=== PATIENT | male | born 1945 | race Two or more races ===

== ENCOUNTER 2017-04-24 21:04 | Inpatient (IN) | payer MEDICARE, SELFPAY ==
[~2017-04-24] VITALS: Ht 160 cm; Wt 61.0 kg
[2017-04-24] MEDS ORDERED: NALOXONE INJ 2 MG/2 ML SYRINGE (J2310) IV ONE (21:15)
[2017-04-24] MEDS ORDERED: AMBI10TA PO (21:24)
[2017-04-24] MEDS ORDERED: LYRI150C PO (21:24)
[2017-04-24] MEDS ORDERED: BENA25TA10 PO (21:24)
[2017-04-24] MEDS ORDERED: ISOS1TAB12 PO (21:24)
[2017-04-24] MEDS ORDERED: BETA115CR TOP (21:24)
[2017-04-24] MEDS ORDERED: NIFE1TAB PO (21:24)
[2017-04-24] MEDS ORDERED: ALFU10TA2 PO (21:24)
[2017-04-24] MEDS ORDERED: BACL10TA2 PO (21:24)
[2017-04-24] MEDS ORDERED: PROM50TA4 PO (21:24)
[2017-04-24] MEDS ORDERED: HYDR-3363 PO (21:24)
[2017-04-24] MEDS ORDERED: VITA400C97 PO (21:24)
[2017-04-24] MEDS ORDERED: PLAV1TAB2 PO (21:24)
[2017-04-24] MEDS ORDERED: LOSA100T36 PO (21:24)
[2017-04-24] MEDS ORDERED: PERC10TA26 PO (21:24)
[2017-04-24] MEDS ORDERED: TYLE1TAB5 PO (21:24)
[2017-04-24] MEDS ORDERED: FENO145T PO (21:24)
[2017-04-24 21:34] LABS: ABG BASE EXCESS -8.3 (-2.0-2.0); ABG HCO3 16.8 MEQ/L (22.0-26.0); ABG PARTIAL PRESSURE CO2 33.6 mmHg (35.0-45.0); ABG STANDARD HCO3 17.8 MEQ/L (22.0-26.0); ABG TOTAL CO2 17.9 MEQ/L (23.0-31.0); ABG pH (ARTERIAL) 7.318 UNITS (7.350-7.450)
[2017-04-24 21:36] LABS: BASO % 0.3 % (0.0-1.0); EOS % 0.4 % (0.0-3.0); LARGE UNSTAINED CELL # 0.2 K/mm3 (0.0-0.4); LARGE UNSTAINED CELL % 1.4 % (0.0-4.0); LYMPH # 1.7 K/mm3 (1.5-4.5); LYMPH % 13.5 % (24.0-44.0); MEAN CORPUSCULAR HGB CONC 30.5 g/dl (32.0-36.5); MEAN CORPUSCULAR VOLUME 94.9 fl (80.0-96.0); MONO # 0.4 K/mm3 (0.0-0.8); MONO % 3.1 % (0.0-5.0); NEUTROPHILS # 9.5 K/mm3 (1.8-7.7); NEUTROPHILS % 81.3 % (36.0-66.0); PLATELET COUNT, AUTOMATED 220 k/mm3 (150-450); RED CELL DISTRIBUTION WIDTH 14.9 % (11.5-14.5); WHITE BLOOD COUNT 11.7 K/mm3 (4.0-10.0)
[2017-04-24] MEDS: NS 1,000 ML IV SCH (21:45)
[2017-04-24 21:50] LABS: ALBUMIN 3.4 GM/DL (3.2-5.2); ALBUMIN/GLOBULIN RATIO 0.92 (1.00-1.93); ALKALINE PHOSPHATASE 58 U/L (45-117); ALT/SGPT 15 U/L (12-78); ANION GAP 12 MEQ/L (8-16); AST/SGOT 28 U/L (15-37); BILIRUBIN,DIRECT 0.1 MG/DL (0.0-0.2); BILIRUBIN,TOTAL 0.3 MG/DL (0.2-1.0); BLOOD UREA NITROGEN 42 MG/DL (7-18); CALCIUM LEVEL 8.4 MG/DL (8.8-10.2); CARBON DIOXIDE LEVEL 18 MEQ/L (21-32); CHLORIDE LEVEL 111 MEQ/L (98-107); CREATININE FOR GFR 3.99 MG/DL (0.70-1.30); GLOMERULAR FILTRATION RATE 15.7 (>42); GLUCOSE, FASTING 113 MG/DL (83-110); POTASSIUM SERUM 3.8 MEQ/L (3.5-5.1); SODIUM LEVEL 141 MEQ/L (136-145); TOTAL PROTEIN 7.1 GM/DL (6.4-8.2)
--- NOTE | 2017-04-24 22:47 | REP ---
Clinical: Drug overdose . Findings: Age-related atrophy and microvascular ischemic changes are appreciated. The ventricles and sulci are symmetric. 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 Mckeon-white differentiation is maintained. There is no evidence for acute intracranial hemorrhage, mass/mass effect, pathology or infarction. No extra-axial fluid collection. Calvarium is intact. Paranasal sinuses and mastoid air cells are clear. Impression: Age related atrophy and microvascular ischemic changes. No acute intracranial hemorrhage, infarction, or mass/mass effect. Signed by Steve Olsen MD 04/24/2017 10:38 P
[2017-04-24 22:58] LABS: METHADONE URINE NEGATIVE (NEGATIVE)
[2017-04-24 23:24] LABS: ABG BASE EXCESS -11.5 (-2.0-2.0); ABG HCO3 14.1 MEQ/L (22.0-26.0); ABG PARTIAL PRESSURE CO2 31.3 mmHg (35.0-45.0); ABG STANDARD HCO3 15.3 MEQ/L (22.0-26.0); ABG TOTAL CO2 15.1 MEQ/L (23.0-31.0); ABG pH (ARTERIAL) 7.273 UNITS (7.350-7.450)
[2017-04-24] MEDS ORDERED: ACETAMINOPHEN TAB 650MG DOSE (2X325MG) PO PRN (23:45)
[2017-04-24] MEDS ORDERED: ONDANSETRON 4MG/2ML VIAL (J2405) IV PRN (23:45)
[2017-04-24] MEDS ORDERED: PATIENT COMMENT (23:49)
--- NOTE | 2017-04-24 23:52 | ECGEPIP ---
Stationary ECG Study [facility] - ED Test Date: 2017-04-24 Pat Name: PASCUAL GOINS Department: Room: - Gender: M Certified Medical Transcriptionist: DominiqueB: 1965-04-24 Requested By: Raymundo Delgado Order Number: [id number] Reading MD: Raymundo Vyas Measurements Intervals [place] Rate: 101 P: 44 RI: 172 QRS: -50 QRSD: 134 T: 46 QT: 367 QTc: 476 Interpretive Statements SINUS TACHYCARDIA WITH FREQUENT VENTRICULAR PREMATURE COMPLEXES LEFT AXIS DEVIATION RIGHT BUNDLE BRANCH BLOCK MODERATE T-WAVE ABNORMALITY, CONSIDER LATERAL ISCHEMIA NO PRIORS Electronically Signed On 04-24-2017 23:51:42 EDT by Raymundo Vyas
[2017-04-25] VITALS (7 sets, daily range): BP systolic 112–166; BP diastolic 60–81
[2017-04-25] MEDS ORDERED: AMMONIA AROMATIC INHALANT (FLOOR STOCK) As Ordered ONE (01:04)
--- NOTE | 2017-04-25 02:07 | HPEPDOC ---
General Date of Admission Apr 24, 2017 at 23:41 Chief Complaint The patient is a 72-year-old male admitted with a reason for visit of Opioid Overdose. Source: Patient Exam Limitations: Intoxication Timing/Duration: 4-6 hours Severity: Severe Associated Symptoms: Unobtainable History of Present Illness Mr Vallejo is a 72 y/o male with past medical history of CAD who presents to the ED obtunded, apparently from his brother who was at bedside, the pt is visiting from [place]. After they had completed their drive, the pt. was at home in his normal state of health and then was found to be unresponsive sometime last evening by his family. Unfortunately on exam the pt is extremely difficult to arouse, he falls asleep and will not even open his eyes to questioning, but will move around when sternal rub is applied. ROS is therefore unobtainable. He was given Narcan both in the field pre-hospital and then again in our ED and seemed to become responsive after this. The pt is on quite a few MARKETING ANALYTICS ANALYST depressant medications, including opioid drugs. Home Medications Scheduled Clopidogrel Bisulfate (Plavix) 75 Mg Tab, 75 MG PO DAILY, (Reported) Losartan Potassium (Losartan Potassium) 100 Mg Tab, 100 MG PO DAILY, (Reported) Nifedipine (Nifedipine ER) 90 Mg Tab, 90 MG PO DAILY, (Reported) Pregabalin (Lyrica) 150 Mg Cap, 150 MG PO TID, (Reported) Miscellaneous Medications (Tylenol Pm Extra Strength 500-25 mg) 1 Tab Tab, 1 TAB PO, (Reported) Alfuzosin Hydrochloride (Alfuzosin HCl ER) 10 Mg Tab, 10 MG PO, (Reported) Baclofen (Baclofen) 10 Mg Tab, 10 MG PO, (Reported) Betamethasone Gladys (Betamethasone Valerate) 1 Dose/15 Gm Cream, 0 TOP, (Reported) Diphenhydramine Hcl (Benadryl Allergy) 25 Mg Tab, 25 MG PO, (Reported) Fenofibrate (Fenofibrate) 145 Mg Tab, 145 MG PO, (Reported) Hydroxyzine HCl (Hydroxyzine HCl) 25 Mg Tab, 25 MG PO, (Reported) Isosorbide Mononitrate (Isosorbide Mononitrate) 10 Mg Tab, 10 MG PO, (Reported) Oxycodone/Acetaminophen (Percocet 10-325 mg) 1 Tab Tab, 1 TAB PO, (Reported) Promethazine Hcl (Promethazine HCl) 50 Mg Tab, 50 MG PO, (Reported) Vitamin E (Vitamin E Complex) 400 Unit Cap, 400 UNIT PO, (Reported) Zolpidem Tartrate (Ambien) 10 Mg Tab, 10 MG PO, (Reported) [Patient Comment] , (Reported) PATIENT UNABLE TO ANSWER QUESTIONS; CALLED NEXT OF KIN AND GOT NO ANSWER. WILL TRY IN THE MORNING BEFORE NEXT SHIFT. Allergies Coded Allergies: Unobtainable (Unverified , 04/24/17) Past Medical History Medical History unobtainable Surgical History unobtainable Social History unobtainable Physical Examination General Exam: Positive: No Acute Distress, Other (laying in bed sleeping, will awaken briefly to sternal rub and falls back asleep, will not stay awake to answer questions ), Negative: Alert, Cooperative Eye Exam: Positive: Conjunctiva & lids normal, Negative: Sclera icteric ENT Exam: Positive: Mucous membr. moist/pink Chest Exam: Positive: Clear to auscultation, Normal air movement, Diminished, Negative: Rhonchi, Wheezing Heart Exam: Positive: Rate Normal, Normal S1, Normal S2, Negative: Tachycardic, Bradycardic Telemetry: Positive: No significant arrhythmia Abdomen Exam: Positive: Normal bowel sounds, Soft, Negative: Tenderness, Hepatospenomegaly Extremity Exam: Negative: Clubbing, Cyanosis Neuro Exam: Positive: Other (+gag reflex, moves all extremities to painful stimuli) Vital Signs Vital Signs Date Time Temp Pulse Resp B/P (MAP) Pulse Ox O2 Delivery O2 Flow Rate FiO2 04/25/17 01:34 Room Air 04/25/17 01:00 97.7 87 20 112/63 (79) 97 Laboratory Data Labs 24H Laboratory Tests 2 04/24/17 21:22: White Blood Count 11.7H, Red Blood Count 4.27L, Hemoglobin 12.4L, Hematocrit 40.5L, Mean Corpuscular Volume 94.9, Mean Corpuscular Hemoglobin 29.0, Mean Corpuscular Hemoglobin Concent 30.5L, Red Cell Distribution Width 14.9H, Platelet Count 220, Neutrophils (%) (Auto) 81.3H, Lymphocytes (%) (Auto) 13.5L, Monocytes (%) (Auto) 3.1, Eosinophils (%) (Auto) 0.4, Basophils (%) (Auto) 0.3, Neutrophils # (Auto) 9.5H, Lymphocytes # (Auto) 1.7, Monocytes # (Auto) 0.4, Eosinophils # (Auto) 0.0, Basophils # (Auto) 0.0, Large Unclassified Cells % 1.4 , Large Unclassified Cells # 0.2, Anion Gap 12, Glomerular Filtration Rate 15.7L , Calcium Level 8.4L, Aspartate Amino Transf (AST/SGOT) 28, Alanine Aminotransferase (ALT/SGPT) 15, Alkaline Phosphatase 58, Total Bilirubin 0.3, Direct Bilirubin 0.1, Total Creatine Kinase 661H, Troponin I < 0.02, Total Protein 7.1, Albumin 3.4, Albumin/Globulin Ratio 0.92L, Thyroid Stimulating Hormone (TSH) 0.770, Salicylates Level 2.4L, Acetaminophen Level 6.9L, Ethyl Alcohol Level < 0.003 04/24/17 21:29: Blood Gas Bicarbonate Standard 17.8L, Arterial Blood pH 7.318L, Arterial Blood Partial Pressure CO2 33.6L, Arterial Blood Partial Pressure O2 76.0, Arterial Blood Total CO2 17.9L, Arterial Blood HCO3 16.8L, Arterial Blood Base Excess - 8.3L, Arterial Blood Oxygen Saturation 95.8 04/24/17 22:23: Lactic Acid Level 1.0 04/24/17 22:29: Urine Amphetamines Screen NEGATIVE, Urine Benzodiazepines Screen NEGATIVE, Urine Opiates Screen POSITIVEH, Urine Methadone Screen NEGATIVE, Urine Barbiturates Screen NEGATIVE, Urine Phencyclidine Screen NEGATIVE, Urine Cocaine Metabolite Screen NEGATIVE, Urine Cannabinoids Screen NEGATIVE 04/24/17 23:15: Blood Gas Bicarbonate Standard 15.3L, Arterial Blood pH 7.273L, Arterial Blood Partial Pressure CO2 31.3L, Arterial Blood Partial Pressure O2 89.0, Arterial Blood Total CO2 15.1L, Arterial Blood HCO3 14.1L, Arterial Blood Base Excess - 11.5L, Arterial Blood Oxygen Saturation 96.0 CBC/BMP Laboratory Tests 04/24/17 21:22 Red Blood Count 4.27 L, Mean Corpuscular Volume 94.9, Mean Corpuscular Hemoglobin 29.0, Mean Corpuscular Hemoglobin Concent 30.5 L, Red Cell Distribution Width 14.9 H, Neutrophils (%) (Auto) 81.3 H, Lymphocytes (%) (Auto ) 13.5 L, Monocytes (%) (Auto) 3.1, Eosinophils (%) (Auto) 0.4, Basophils (%) ( Auto) 0.3, Neutrophils # (Auto) 9.5 H, Lymphocytes # (Auto) 1.7, Monocytes # ( Auto) 0.4, Eosinophils # (Auto) 0.0, Basophils # (Auto) 0.0 Problems (1) Opioid overdose Status: Acute Response to Treatment: Stable Problem Text: Pt received Narcan both in the field pre hospital and in the ED and seemed to respond well, awakening and becoming more responsive continue to monitor pt vitals remain stable troponins in ED negative lactic negative neuro checks q4h (2) Acute renal failure Status: Acute Response to Treatment: Stable Problem Text: creatine 3.99 gfr 15.7 unfortunately we don't know what pts baseline kidney function is continue to monitor Plan / VTE VTE Prophylaxis Ordered?: Yes GME ATTESTATION GME ATTESTATION My preceptor for this patient encounter was physically present in the building during the encounter and was fully available. As needed, all aspects of the patient interview, examination, medical decision making process, and medical care plan development were reviewed and approved by the preceptor. Preceptor is aware and concurs with the plan as stated in the body of this note and will attest to such by his/her cosignature. ATTENDING NOTE Pt seen and examined by me. Findings and plan reviewed with resident. Resident note reviewed and agree with documented findings and plan. 1 Narcotic overdose Pt no sig hypoxic on abg with mild acidosis (possible due to NS fluid rescusitation adding a non-gap acidosis on a mild metabolic acidosis Neuro checks q4h Tele Poison control contacted will monitor on tele for qtc prolongation, although this is obscured secondary pt's hx of cabg and ecg changes secondary to that prn narcan-no drip indicated at this time 2 Renal failure-javier with ckd v javier v ckd No old labs to compare but pt receiving ivf Will monitor serial bmp Check urine studies Consider renal sono LINCOLN EPPERSON DO Apr 25, 2017 02:07 Drew Evans MD Apr 25, 2017 08:06
[2017-04-25] MEDS: HEPARIN SOD (PORCINE) 5000 UNITS/ML VIAL SC SCH ×3 (05:55→21:49)
[2017-04-25] MEDS: NS 1,000 ML IV SCH (06:10)
--- NOTE | 2017-04-25 08:04 | REP ---
Clinical: Drug overdose . Comparison: None . Findings: The mediastinum and cardiac silhouette are stable and within normal limits for portable technique. The lung mcmullen are clear without acute consolidation, effusion, or pneumothorax. Skeletal structures are intact. Impression: No acute cardiopulmonary process appreciated. Signed by Steve Olsen MD 04/25/2017 07:56 A
[2017-04-25 08:38] LABS: MEAN CORPUSCULAR HEMOGLOBIN 30.3 pg (27.0-33.0); MEAN CORPUSCULAR HGB CONC 32.2 g/dl (32.0-36.5); MEAN CORPUSCULAR VOLUME 94.1 fl (80.0-96.0); RED CELL DISTRIBUTION WIDTH 14.8 % (11.5-14.5); WHITE BLOOD COUNT 9.9 K/mm3 (4.0-10.0)
[2017-04-25 09:41] LABS: CREATININE FOR GFR 2.82 MG/DL (0.70-1.30); GLOMERULAR FILTRATION RATE 23.5 (>42); MAGNESIUM LEVEL 1.9 MG/DL (1.8-2.4); PHOSPHORUS LEVEL 4.7 MG/DL (2.5-4.9); POTASSIUM SERUM 3.6 MEQ/L (3.5-5.1)
[2017-04-25 11:58] LABS: ABG BASE EXCESS -9.9 (-2.0-2.0); ABG HCO3 15.8 MEQ/L (22.0-26.0); ABG PARTIAL PRESSURE CO2 34.3 mmHg (35.0-45.0); ABG PARTIAL PRESSURE O2 83.2 mmHg (75.0-100.0); ABG STANDARD HCO3 16.6 MEQ/L (22.0-26.0); ABG TOTAL CO2 16.9 MEQ/L (23.0-31.0); ABG pH (ARTERIAL) 7.282 UNITS (7.350-7.450)
[2017-04-25] MEDS ORDERED: NS 0.45% 1,000 ML IV SCH (12:00)
[2017-04-25] MEDS ORDERED: ALFU10TA2 PO (13:12)
[2017-04-25] MEDS ORDERED: NEUR300C PO (13:12)
[2017-04-25] MEDS ORDERED: CLOP75TA2 PO (13:12)
[2017-04-25] MEDS ORDERED: HYDR-3363 PO (13:12)
[2017-04-25] MEDS ORDERED: LOSA100T36 PO (13:12)
[2017-04-25] MEDS ORDERED: LYRI150C PO (13:12)
[2017-04-25] MEDS ORDERED: BACL10TA2 PO (13:12)
[2017-04-25] MEDS ORDERED: TRIC145T22 PO (13:12)
[2017-04-25] MEDS ORDERED: ISOS1TAB13 PO (13:12)
[2017-04-25] MEDS ORDERED: [UNRECOGNIZED DRUG - CODE] TOP (13:12)
[2017-04-25] MEDS ORDERED: PROAAER10 INH (13:12)
[2017-04-25] MEDS ORDERED: NIFE90TA3 PO (13:12)
[2017-04-25] MEDS ORDERED: ZOLP10TA2 PO (13:12)
[2017-04-25] MEDS ORDERED: LACT10SO29 PO (13:12)
[2017-04-25] MEDS ORDERED: OXYC1TAB16 PO (13:12)
--- NOTE | 2017-04-25 15:26 | IPNPDOC ---
Text Note Date of Service The patient was seen on 04/25/17. NOTE Subjective: Patient is a 72 year old male with a PMHx of CAD - s/p CABG who was brought to the ED by his brother because of lethargy / confusion. Patient recently completed a drive from [place] and was at home. He was found unresponsive by his family. EMS was called and he was given Narcan that he responded to. Upon arrival to ER patient was given additional Narcan and responded again. Patient was seen and examined at the bedside. Currently still drowsy, but arousable. Objective: Vitals (See below) General: Lying in bed, no acute distress, drowsy, AAOx1 HEENT: NC, AT CVS: RRR, +S1S2 Lungs: Fair air entry b/l, -w/r/r Abdomen: Soft, ND, NT, +BSx4 Extremities: +PPx4, - Edema, - Calf tenderness Assessment and plan: 1. Acute metabolic encephalopathy - likely 2/2 medication overdose (2/2 opiates , gabapentin, baclofen, pregabalin, Ambien) - Presented with confusion / lethargy and responded to Narcan - Physical reveals response to physical stimuli and loud auditory stimuli - No focal deficits - CT Head 04/26: negative for acute pathology - c/w Neuro checks - Discussed with Poison control; will start Bicarbonate drip, repeat EKG and follow repeat CK levels 2. Non-AG Metabolic acidosis - Will start bicarbonate drip 3. Acute renal failure - possibly 2/2 pre-renal or renal etiology, less likely post-renal etiology - Cr elevated at 3.99; unknown baseline - Will check Renal US - Will c/w IV fluid hydration 4. DVT prophylaxis - c/w heparin VS,Fishbone, I+O VS, Fishbone, I+O Laboratory Tests 04/24/17 21:22 Red Blood Count 4.27 L, Mean Corpuscular Volume 94.9, Mean Corpuscular Hemoglobin 29.0, Mean Corpuscular Hemoglobin Concent 30.5 L, Red Cell Distribution Width 14.9 H, Neutrophils (%) (Auto) 81.3 H, Lymphocytes (%) (Auto ) 13.5 L, Monocytes (%) (Auto) 3.1, Eosinophils (%) (Auto) 0.4, Basophils (%) ( Auto) 0.3, Neutrophils # (Auto) 9.5 H, Lymphocytes # (Auto) 1.7, Monocytes # ( Auto) 0.4, Eosinophils # (Auto) 0.0, Basophils # (Auto) 0.0 04/25/17 08:18 Red Blood Count 3.72 L, Mean Corpuscular Volume 94.1, Mean Corpuscular Hemoglobin 30.3, Mean Corpuscular Hemoglobin Concent 32.2, Red Cell Distribution Width 14.8 H, Calcium Level 8.0 L Vital Signs Date Time Temp Pulse Resp B/P (MAP) Pulse Ox O2 Delivery O2 Flow Rate FiO2 04/25/17 13:33 Room Air 04/25/17 13:20 98.1 77 18 154/65 (94) 97 I&O- Last 24 Hours up to 6 AM 04/25/17 06:00 Intake Total 0 ml Output Total 450 ml Balance -450 ml SHAGUFTA WAETRS MD Apr 25, 2017 15:26
[2017-04-25] MEDS ORDERED: SODIUM BICARBONATE 150 MEQ in D5W 1,000 ML IV SCH (16:00)
--- NOTE | 2017-04-25 16:58 | REP ---
Clinical: Acute renal failure evaluate for hydronephrosis. Technique: Real time jacobson scale ultrasound examination using curved array transducer. Findings: The kidneys are hyperemic consistent with chronic medical renal disease and without hydronephrosis, obvious nephrolithiasis, or mass lesion. Right kidney measures 11.5 x 5.5 x 4.4 cm and includes a 3.1 cm lower pole simple cyst. Left kidney measures 10.3 x 5.3 x 5.5 cm and includes a 9 mm upper pole cyst. Bladder is unremarkable and without wall thickening or obvious mass lesion. Impression: Chronic medical renal disease and solitary cysts as noted above. No hydronephrosis. Signed by Steve Olsen MD 04/25/2017 04:49 P
[2017-04-25 18:42] LABS: ABG BASE EXCESS -7.5 (-2.0-2.0); ABG PARTIAL PRESSURE CO2 36.5 mmHg (35.0-45.0); ABG PARTIAL PRESSURE O2 75.1 mmHg (75.0-100.0); ABG STANDARD HCO3 18.3 MEQ/L (22.0-26.0); ABG TOTAL CO2 19.1 MEQ/L (23.0-31.0); ABG pH (ARTERIAL) 7.311 UNITS (7.350-7.450)
--- NOTE | 2017-04-25 20:14 | ECGEPIP ---
Stationary ECG Study [facility] Test Date: 2017-04-25 Pat Name: PASCUAL GOINS Department: Room: [place] [address] Gender: M Advanced Practice Rn: WOLF : 1945 Requested By: SHAGUFTA WATERS Order Number: [id number] Reading MD: Zahraa Beard Measurements Intervals [place] Rate: 65 P: 60 [place]: 178 QRS: -38 QRSD: 147 T: 38 QT: 456 QTc: 477 Interpretive Statements SINUS RHYTHM WITH OCCASIONAL VENTRICULAR PREMATURE COMPLEXES WITH OCCASIONAL SUPRAVENTRICULAR PREMATURE COMPLEXES LEFT AXIS DEVIATION Left anterior fascicular block RESOLVED RIGHT BUNDLE BRANCH BLOCK MODERATE T-WAVE ABNORMALITY, CONSIDER LATERAL ISCHEMIA NEW RATE SLOWER PACS NEW C/W 04/24/17 Electronically Signed On 04-25-2017 20:14:03 EDT by Zahraa Beard
[2017-04-25 20:18] LABS: BASO # 0.1 K/mm3 (0.0-0.2); BASO % 0.7 % (0.0-1.0); EOS # 0.1 K/mm3 (0.0-0.50); EOS % 1.4 % (0.0-3.0); LARGE UNSTAINED CELL # 0.2 K/mm3 (0.0-0.4); LARGE UNSTAINED CELL % 2.3 % (0.0-4.0); LYMPH # 2.1 K/mm3 (1.5-4.5); LYMPH % 24.7 % (24.0-44.0); MEAN CORPUSCULAR HEMOGLOBIN 29.8 pg (27.0-33.0); MEAN CORPUSCULAR HGB CONC 32.1 g/dl (32.0-36.5); MONO # 0.3 K/mm3 (0.0-0.8); MONO % 3.8 % (0.0-5.0); NEUTROPHILS # 5.7 K/mm3 (1.8-7.7); NEUTROPHILS % 67.2 % (36.0-66.0); PLATELET COUNT, AUTOMATED 218 k/mm3 (150-450); RED CELL DISTRIBUTION WIDTH 14.8 % (11.5-14.5); WHITE BLOOD COUNT 8.5 K/mm3 (4.0-10.0)
[2017-04-25 20:37] LABS: ALBUMIN 2.9 GM/DL (3.2-5.2); ALBUMIN/GLOBULIN RATIO 0.94 (1.00-1.93); BILIRUBIN,TOTAL 0.4 MG/DL (0.2-1.0); CREATININE FOR GFR 1.81 MG/DL (0.70-1.30); GLOMERULAR FILTRATION RATE 39.2 (>42); MAGNESIUM LEVEL 1.9 MG/DL (1.8-2.4); POTASSIUM SERUM 3.6 MEQ/L (3.5-5.1)
[2017-04-26] VITALS (7 sets, daily range): BP systolic 149–190; BP diastolic 62–86
[2017-04-26] MEDS ORDERED: ONDANSETRON 4MG/2ML VIAL (J2405) IV ONE (04:00)
[2017-04-26] MEDS ORDERED: hydrALAZINE INJ 20 MG/ML VIAL IV ONE (04:00)
[2017-04-26] MEDS ORDERED: POTASSIUM CHLORIDE 10 MEQ SR TABLET PO ONE ×2 (04:00→07:30)
[2017-04-26] MEDS: HEPARIN SOD (PORCINE) 5000 UNITS/ML VIAL SC SCH ×3 (05:54→21:21)
[2017-04-26 06:14] LABS: ABG BASE EXCESS -0.9 (-2.0-2.0); ABG HCO3 22.5 MEQ/L (22.0-26.0); ABG PARTIAL PRESSURE CO2 33.6 mmHg (35.0-45.0); ABG PARTIAL PRESSURE O2 66.4 mmHg (75.0-100.0); ABG STANDARD HCO3 23.6 MEQ/L (22.0-26.0); ABG TOTAL CO2 23.5 MEQ/L (23.0-31.0); ABG pH (ARTERIAL) 7.444 UNITS (7.350-7.450)
[2017-04-26 06:48] LABS: BASO % 0.5 % (0.0-1.0); EOS # 0.1 K/mm3 (0.0-0.50); EOS % 1.3 % (0.0-3.0); LARGE UNSTAINED CELL # 0.2 K/mm3 (0.0-0.4); LARGE UNSTAINED CELL % 1.5 % (0.0-4.0); LYMPH # 2.1 K/mm3 (1.5-4.5); LYMPH % 19.1 % (24.0-44.0); MEAN CORPUSCULAR HEMOGLOBIN 29.9 pg (27.0-33.0); MEAN CORPUSCULAR HGB CONC 33.6 g/dl (32.0-36.5); MEAN CORPUSCULAR VOLUME 88.9 fl (80.0-96.0); MONO # 0.4 K/mm3 (0.0-0.8); MONO % 3.5 % (0.0-5.0); NEUTROPHILS # 7.5 K/mm3 (1.8-7.7); NEUTROPHILS % 74.1 % (36.0-66.0); PLATELET COUNT, AUTOMATED 246 k/mm3 (150-450); RED CELL DISTRIBUTION WIDTH 14.8 % (11.5-14.5); WHITE BLOOD COUNT 10.1 K/mm3 (4.0-10.0)
[2017-04-26 07:18] LABS: ALBUMIN 2.8 GM/DL (3.2-5.2); ALBUMIN/GLOBULIN RATIO 0.9 (1.00-1.93); BILIRUBIN,TOTAL 0.4 MG/DL (0.2-1.0); CALCIUM LEVEL 8.2 MG/DL (8.8-10.2); CREATININE FOR GFR 1.26 MG/DL (0.70-1.30); GLOMERULAR FILTRATION RATE 59.6 (>42); MAGNESIUM LEVEL 1.7 MG/DL (1.8-2.4); POTASSIUM SERUM 3.3 MEQ/L (3.5-5.1); TOTAL PROTEIN 5.9 GM/DL (6.4-8.2)
[2017-04-26] MEDS ORDERED: MAG SULF 1GM/100ML (MAG RUN) 1 GM in APPROPRIATE DILUENT 1 EA IV ONE (07:30)
[2017-04-26] MEDS: amLODIPine 5 MG TAB PO SCH (08:37)
[2017-04-26] MEDS ORDERED: cloNIDine 0.1 MG TAB PO SCH ×2 (09:00)
--- NOTE | 2017-04-26 10:51 | ECGEPIP ---
Stationary ECG Study [facility] Test Date: 2017-04-26 Pat Name: PASCUAL GOINS Department: Room: [place] [address] Gender: M Fryer Line Helper: : 1945 Requested By: LINCOLN EPPERSON Order Number: [id number] Reading MD: Zahraa Beard Measurements Intervals [place] Rate: 85 P: 32 MA: 168 QRS: -38 QRSD: 144 T: 24 QT: 391 QTc: 467 Interpretive Statements SINUS RHYTHM WITH FREQUENT VENTRICULAR PREMATURE COMPLEXES LEFT AXIS DEVIATION [QRS AXIS < -30] RIGHT BUNDLE BRANCH BLOCK [120+ ms QRS DURATION, UPRIGHT V1, 40+ ms S IN I/aVL/V4/V5/V6] MODERATE T-WAVE ABNORMALITY, CONSIDER LATERAL ISCHEMIA [-0.1+ mV T WAVE IN I/aVL/V5/V6] PAC ABSENT INCREASED PVCS (DIFFERENT FOCI) OTHERWISE SIMILAR TO 04/25/17 Electronically Signed On 04-26-2017 10:51:13 EDT by Zahraa Beard
--- NOTE | 2017-04-26 13:23 | IPNPDOC ---
Text Note Date of Service The patient was seen on 04/26/17. NOTE Subjective: Patient is a 72 year old male with a PMHx of CAD - s/p CABG who was brought to the ED by his brother because of lethargy / confusion. Patient recently completed a drive from [place] and was at home. He was found unresponsive by his family. EMS was called and he was given Narcan that he responded to. Upon arrival to ER patient was given additional Narcan and responded again. Patient was seen and examined at the bedside. He is more awake and able to answer more questions. Denies any problems at this time. Objective: Vitals (See below) General: Lying in bed, no acute distress, awake and alert, AAOx1 (not time or place) HEENT: NC, AT CVS: RRR, +S1S2 Lungs: Fair air entry b/l, crackles at left lung base Abdomen: Soft, ND, NT, +BSx4 Extremities: +PPx4, - Edema, - Calf tenderness Assessment and plan: 1. Acute metabolic encephalopathy - likely 2/2 medication overdose (2/2 opiates , gabapentin, baclofen, pregabalin, Ambien) - Presented with confusion / lethargy and responded to Narcan - Currently shows improvement in confusion / sedation - No focal deficits on physical - CT Head 04/26: negative for acute pathology - c/w Neuro checks - Discussed with Poison control; will start Bicarbonate drip, repeat EKG and follow repeat CK levels 2. s/p Non-AG Metabolic acidosis - ABG this AM, shows resolution of acidosis - CMP, reveals normalization of bicarbonate - s/p bicarbonate drip 3. s/p Acute renal failure - possibly 2/2 pre-renal, less likely post-renal etiology - Cr elevated at 3.99; unknown baseline - Renal US 04/25: chronic medical renal disease, solitary cysts, no hydronephrosis - s/p IV fluid hydration 4. Low grade fevers / Leukocytosis - possibly 2/2 developing pneumonia - Physical reveals some crackles / rhonchi at left lung base - Will get CXR to evaluate for infiltrate - Will hold antibiotics at this point 5. HTN - c/w Clonidine; will increase dose - c/w amlodipine 6. Hypokalemia / Hypomagnesemia - will supplement 4. DVT prophylaxis - c/w heparin VS,Fishbone, I+O VS, Fishbone, I+O Laboratory Tests 04/25/17 20:05 Red Blood Count 4.06 L, Mean Corpuscular Volume 93.0, Mean Corpuscular Hemoglobin 29.8, Mean Corpuscular Hemoglobin Concent 32.1, Red Cell Distribution Width 14.8 H, Neutrophils (%) (Auto) 67.2 H, Lymphocytes (%) (Auto ) 24.7, Monocytes (%) (Auto) 3.8, Eosinophils (%) (Auto) 1.4, Basophils (%) ( Auto) 0.7, Neutrophils # (Auto) 5.7, Lymphocytes # (Auto) 2.1, Monocytes # (Auto ) 0.3, Eosinophils # (Auto) 0.1, Basophils # (Auto) 0.1, Calcium Level 8.0 L, Aspartate Amino Transf (AST/SGOT) 25, Alanine Aminotransferase (ALT/SGPT) 14, Total Creatine Kinase 363 H, Alkaline Phosphatase 46, Total Bilirubin 0.4, Total Protein 6.0 L, Albumin 2.9 L 04/26/17 06:07 Red Blood Count 4.07 L, Mean Corpuscular Volume 88.9, Mean Corpuscular Hemoglobin 29.9, Mean Corpuscular Hemoglobin Concent 33.6, Red Cell Distribution Width 14.8 H, Neutrophils (%) (Auto) 74.1 H, Lymphocytes (%) (Auto ) 19.1 L, Monocytes (%) (Auto) 3.5, Eosinophils (%) (Auto) 1.3, Basophils (%) ( Auto) 0.5, Neutrophils # (Auto) 7.5, Lymphocytes # (Auto) 2.1, Monocytes # (Auto ) 0.4, Eosinophils # (Auto) 0.1, Basophils # (Auto) 0.0, Calcium Level 8.2 L, Aspartate Amino Transf (AST/SGOT) 24, Alanine Aminotransferase (ALT/SGPT) 15, Total Creatine Kinase 241, Alkaline Phosphatase 47, Total Bilirubin 0.4, Total Protein 5.9 L, Albumin 2.8 L Vital Signs Date Time Temp Pulse Resp B/P (MAP) Pulse Ox O2 Delivery O2 Flow Rate FiO2 04/26/17 12:00 99.4 54 20 178/62 (100) 98 Room Air I&O- Last 24 Hours up to 6 AM 04/26/17 06:00 Intake Total 1750 ml Output Total 2700 ml Balance -950 ml SHAGUFTA WATERS MD Apr 26, 2017 13:23
[2017-04-26] MEDS ORDERED: D5W 1,000 ML IV ONE (13:30)
[2017-04-26] MEDS ORDERED: D5W 1,000 ML IV SCH (13:30)
[2017-04-26] MEDS: NYSTATIN 100,000 UNITS/GM TOPICAL PWD 15 GM TOP SCH ×2 (13:47→21:21)
--- NOTE | 2017-04-26 14:14 | REP ---
Chest one-view HISTORY: Infiltrate Comparison: 04/24/2017 The lungs are clear. The heart is upper limits of normal in size. The pulmonary vasculature is normal in appearance. Impression: No acute disease. Signed by Yousif Llamas MD 04/26/2017 02:05 P
[2017-04-26] MEDS: cloNIDine 0.2 MG TAB PO SCH ×2 (16:30→21:21)
[2017-04-27] VITALS (7 sets, daily range): BP systolic 115–194; BP diastolic 63–86
[2017-04-27] MEDS ORDERED: SLF 3 ML SYR IV PRN (01:15)
[2017-04-27] MEDS: HEPARIN SOD (PORCINE) 5000 UNITS/ML VIAL SC SCH ×3 (05:29→21:57)
[2017-04-27] MEDS: SLF 3 ML SYR IV SCH ×3 (05:30→21:58)
--- NOTE | 2017-04-27 06:15 | ECGEPIP ---
Stationary ECG Study [facility] Test Date: 2017-04-26 Pat Name: PASCUAL GOINS Department: Room: [place] [address] Gender: M Therapeutic Radiologist: JAIME : 1945 Requested By: LINCOLN EPPERSON Order Number: [id number] Reading MD: Zahraa Beard Measurements Intervals [place] Rate: 62 P: -52 CO: 165 QRS: -51 QRSD: 133 T: 71 QT: 457 QTc: 465 Interpretive Statements SINUS RHYTHM WITH FREQUENT VENTRICULAR PREMATURE COMPLEXES RIGHT BUNDLE BRANCH BLOCK COPD PATTERN LEFT ANTERIOR FASCICULAR BLOCK BORDERLINE STTABN LATERLLY EXCEPT FOR DECREASED VOLT LIMB LEADS STBLE C/W 04/26/17 Electronically Signed On 04-27-2017 6:14:43 EDT by Zahraa Beard
[2017-04-27 06:33] LABS: ALBUMIN 2.6 GM/DL (3.2-5.2); ALKALINE PHOSPHATASE 41 U/L (45-117); ALT/SGPT 11 U/L (12-78); ANION GAP 10 MEQ/L (8-16); AST/SGOT 25 U/L (15-37); BILIRUBIN,TOTAL 0.5 MG/DL (0.2-1.0); BLOOD UREA NITROGEN 18 MG/DL (7-18); CALCIUM LEVEL 7.8 MG/DL (8.8-10.2); CARBON DIOXIDE LEVEL 22 MEQ/L (21-32); CHLORIDE LEVEL 112 MEQ/L (98-107); CREATININE FOR GFR 1.16 MG/DL (0.70-1.30); GLOMERULAR FILTRATION RATE > 60.0 (>42); GLUCOSE, FASTING 98 MG/DL (83-110); POTASSIUM SERUM 3.7 MEQ/L (3.5-5.1); SODIUM LEVEL 144 MEQ/L (136-145); TOTAL PROTEIN 5.5 GM/DL (6.4-8.2)
[2017-04-27 08:00] LABS: BASO % 0.4 % (0.0-1.0); EOS # 0.1 K/mm3 (0.0-0.50); EOS % 1.3 % (0.0-3.0); LARGE UNSTAINED CELL # 0.2 K/mm3 (0.0-0.4); LARGE UNSTAINED CELL % 1.9 % (0.0-4.0); LYMPH % 19.6 % (24.0-44.0); MEAN CORPUSCULAR HEMOGLOBIN 29.5 pg (27.0-33.0); MEAN CORPUSCULAR HGB CONC 32.8 g/dl (32.0-36.5); MEAN CORPUSCULAR VOLUME 89.8 fl (80.0-96.0); MONO # 0.5 K/mm3 (0.0-0.8); MONO % 4.7 % (0.0-5.0); NEUTROPHILS # 7.4 K/mm3 (1.8-7.7); NEUTROPHILS % 72.1 % (36.0-66.0); PLATELET COUNT, AUTOMATED 231 k/mm3 (150-450); RED CELL DISTRIBUTION WIDTH 14.4 % (11.5-14.5); WHITE BLOOD COUNT 10.2 K/mm3 (4.0-10.0)
[2017-04-27] MEDS: cloNIDine 0.2 MG TAB PO SCH (08:45)
[2017-04-27] MEDS: amLODIPine 5 MG TAB PO SCH (08:49)
[2017-04-27] MEDS: NYSTATIN 100,000 UNITS/GM TOPICAL PWD 15 GM TOP SCH ×2 (08:49→21:57)
[2017-04-27] MEDS ORDERED: ALBUTEROL 90 MCG/ACT 8GM HFA INHALER INH PRN (10:15)
--- NOTE | 2017-04-27 10:41 | IPNPDOC ---
Text Note Date of Service The patient was seen on 04/27/17. NOTE Subjective: Patient is a 72 year old male with a PMHx of CAD - s/p CABG who was brought to the ED by his brother because of lethargy / confusion. Patient recently completed a drive from [place] and was at home. He was found unresponsive by his family. EMS was called and he was given Narcan that he responded to. Upon arrival to ER patient was given additional Narcan and responded again. Patient was seen and examined at the bedside. Patient is able to answer questions appropriately and better oriented. He advised me to contact his brother. Objective: Vitals (See below) General: Lying in bed, no acute distress, awake and alert, AAOx2 (not place) HEENT: NC, AT CVS: RRR, +S1S2 Lungs: Fair air entry b/l, clear to auscultation, -w/r/r Abdomen: Soft, ND, NT, +BSx4 Extremities: +PPx4, - Edema, - Calf tenderness Assessment and plan: 1. Acute metabolic encephalopathy - likely 2/2 medication overdose (2/2 opiates , gabapentin, baclofen, pregabalin, Ambien) - Presented with confusion / lethargy and responded to Narcan - Currently shows improvement in confusion / sedation - No focal deficits on physical - CT Head 04/26: negative for acute pathology - Will check ammonia level - c/w Neuro checks - s/p Bicarbonate drip - Will discontinue telemetry monitoring - Attempting to contact brother [phone]; need to establish baseline mental status 2. s/p Non-AG Metabolic acidosis - Normalized ABG and Bicarb - s/p bicarbonate drip 3. s/p Acute renal failure - possibly 2/2 pre-renal, less likely post-renal etiology - Cr elevated at 3.99; unknown baseline - Renal US 04/25: chronic medical renal disease, solitary cysts, no hydronephrosis - s/p IV fluid hydration 4. Low grade fevers / Leukocytosis - CXR 04/26: negative - Will hold antibiotics at this point 5. HTN - Will stop Clonidine and Amlodipine - Will restart Isosorbide dinitrate and Losartan 6. Hypokalemia / Hypomagnesemia - will supplement 4. DVT prophylaxis - c/w heparin Disposition: - Will downgrade to med / surg - Attempt to contact brother to evaluate baseline mental status VS,Fishbone, I+O VS, Fishbone, I+O Laboratory Tests 04/27/17 05:59 Calcium Level 7.8 L, Aspartate Amino Transf (AST/SGOT) 25, Alanine Aminotransferase (ALT/SGPT) 11 L, Total Creatine Kinase 159, Alkaline Phosphatase 41 L, Total Bilirubin 0.5, Total Protein 5.5 L, Albumin 2.6 L 04/27/17 07:46 Red Blood Count 3.89 L, Mean Corpuscular Volume 89.8, Mean Corpuscular Hemoglobin 29.5, Mean Corpuscular Hemoglobin Concent 32.8, Red Cell Distribution Width 14.4, Neutrophils (%) (Auto) 72.1 H, Lymphocytes (%) (Auto) 19.6 L, Monocytes (%) (Auto) 4.7, Eosinophils (%) (Auto) 1.3, Basophils (%) ( Auto) 0.4, Neutrophils # (Auto) 7.4, Lymphocytes # (Auto) 2.0, Monocytes # (Auto ) 0.5, Eosinophils # (Auto) 0.1, Basophils # (Auto) 0.0 Vital Signs Date Time Temp Pulse Resp B/P (MAP) Pulse Ox O2 Delivery O2 Flow Rate FiO2 04/27/17 08:49 87 115/72 04/27/17 08:00 97.6 18 98 Room Air I&O- Last 24 Hours up to 6 AM 04/27/17 06:00 Intake Total 1000 ml Output Total 1275 ml Balance -275 ml SHAGUFTA WATERS MD Apr 27, 2017 10:41
[2017-04-27] MEDS: LACTULOSE 20 GM/30 ML SYRUP UD PO SCH ×2 (12:17→21:57)
[2017-04-27] MEDS: LOSARTAN 50 MG TAB PO SCH (12:18)
[2017-04-27] MEDS: CLOPIDOGREL 75 MG TAB PO SCH (12:18)
[2017-04-27] MEDS: ISOSORBIDE DIN (ISORDIL) 10 MG TAB PO SCH ×2 (12:18→18:20)
[2017-04-27] MEDS: FENOFIBRATE 145 MG TAB (TRICOR) PO SCH (12:18)
[2017-04-28] MEDS: HEPARIN SOD (PORCINE) 5000 UNITS/ML VIAL SC SCH ×4 (05:19→22:33)
[2017-04-28] MEDS: SLF 3 ML SYR IV SCH ×3 (05:20→21:51)
[2017-04-28 06:00] VITALS: BP 160/70
[2017-04-28 06:31] LABS: BASO % 0.5 % (0.0-1.0); EOS # 0.1 K/mm3 (0.0-0.50); EOS % 0.8 % (0.0-3.0); LARGE UNSTAINED CELL # 0.2 K/mm3 (0.0-0.4); LARGE UNSTAINED CELL % 1.8 % (0.0-4.0); LYMPH # 1.8 K/mm3 (1.5-4.5); LYMPH % 17.7 % (24.0-44.0); MEAN CORPUSCULAR HGB CONC 33.8 g/dl (32.0-36.5); MEAN CORPUSCULAR VOLUME 88.9 fl (80.0-96.0); MONO # 0.6 K/mm3 (0.0-0.8); MONO % 6.2 % (0.0-5.0); NEUTROPHILS # 6.8 K/mm3 (1.8-7.7); NEUTROPHILS % 73.1 % (36.0-66.0); PLATELET COUNT, AUTOMATED 240 k/mm3 (150-450); RED CELL DISTRIBUTION WIDTH 14.5 % (11.5-14.5); WHITE BLOOD COUNT 9.3 K/mm3 (4.0-10.0)
[2017-04-28] MEDS: ISOSORBIDE DIN (ISORDIL) 10 MG TAB PO SCH ×3 (06:42→17:55)
[2017-04-28 06:54] LABS: ALBUMIN 3.1 GM/DL (3.2-5.2); ALBUMIN/GLOBULIN RATIO 0.91 (1.00-1.93); ALKALINE PHOSPHATASE 50 U/L (45-117); ALT/SGPT 15 U/L (12-78); ANION GAP 12 MEQ/L (8-16); AST/SGOT 22 U/L (15-37); BILIRUBIN,TOTAL 0.5 MG/DL (0.2-1.0); BLOOD UREA NITROGEN 13 MG/DL (7-18); CALCIUM LEVEL 8.3 MG/DL (8.8-10.2); CARBON DIOXIDE LEVEL 24 MEQ/L (21-32); CHLORIDE LEVEL 111 MEQ/L (98-107); CREATININE FOR GFR 1.04 MG/DL (0.70-1.30); GLOMERULAR FILTRATION RATE > 60.0 (>42); GLUCOSE, FASTING 92 MG/DL (83-110); MAGNESIUM LEVEL 1.8 MG/DL (1.8-2.4); POTASSIUM SERUM 3.1 MEQ/L (3.5-5.1); SODIUM LEVEL 147 MEQ/L (136-145); TOTAL PROTEIN 6.5 GM/DL (6.4-8.2)
[2017-04-28] MEDS ORDERED: POTASSIUM CHLORIDE 10 MEQ SR TABLET PO ONE (07:00)
[2017-04-28] MEDS ORDERED: POTASSIUM CHLORIDE INJ 40 MEQ in D5W 1,000 ML IV SCH (08:00)
[2017-04-28] MEDS: FENOFIBRATE 145 MG TAB (TRICOR) PO SCH (09:14)
[2017-04-28] MEDS: CLOPIDOGREL 75 MG TAB PO SCH (09:14)
[2017-04-28] MEDS: LACTULOSE 20 GM/30 ML SYRUP UD PO SCH ×3 (09:14→21:00)
[2017-04-28] MEDS: LOSARTAN 50 MG TAB PO SCH (09:15)
[2017-04-28] MEDS: NYSTATIN 100,000 UNITS/GM TOPICAL PWD 15 GM TOP SCH ×2 (09:16→21:51)
[2017-04-28] MEDS ORDERED: POTASSIUM CHLORIDE INJ 40 MEQ in D5W 1,000 ML IV ONE (09:47)
--- NOTE | 2017-04-28 12:13 | IPNPDOC ---
Text Note Date of Service The patient was seen on 04/28/17. NOTE Subjective: Patient is a 72 year old male with a PMHx of CAD - s/p CABG who was brought to the ED by his brother because of lethargy / confusion. Patient recently completed a drive from [place] and was at home. He was found unresponsive by his family. EMS was called and he was given Narcan that he responded to. Upon arrival to ER patient was given additional Narcan and responded again. Patient was seen and examined at the bedside. Patient is no longer confused and has given more information about his past medical history. He denies any problems overnight. He denies any suicidal ideation, had not tried to intentionally harm himself. He noted it was accidental after he came from a long drive. He notes his brother has been helping to establish care for him in [place]. Objective: Vitals (See below) General: Lying in bed, no acute distress, comfortable, awake and alert, AAOx3 HEENT: NC, AT CVS: RRR, +S1S2 Lungs: Fair air entry b/l, clear to auscultation, -w/r/r Abdomen: Soft, ND, NT, +BSx4 Extremities: +PPx4, - Edema, - Calf tenderness Assessment and plan: 1. s/p Acute metabolic encephalopathy - likely 2/2 medication overdose (2/2 opiates, gabapentin, baclofen, pregabalin, Ambien) - Presented with confusion / lethargy and responded to Narcan - Full resolution of confusion - No focal deficits on physical - CT Head 04/26: negative for acute pathology - s/p Bicarbonate drip - Will DC neuro checks and bedside sitter - Will get physical therapy on board to evaluate ambulation ability and clearance prior to discharge - Discussed with patient's brother; he is now at his baseline mental status 2. s/p Non-AG Metabolic acidosis - Normalized ABG and Bicarb - s/p bicarbonate drip 3. s/p Acute renal failure - possibly 2/2 pre-renal, less likely post-renal etiology - Cr elevated at 3.99; unknown baseline - Renal US 04/25: chronic medical renal disease, solitary cysts, no hydronephrosis - s/p IV fluid hydration 4. s/p Leukocytosis - CXR 04/26: negative - Will hold antibiotics at this point 5. HTN - c/w Isosorbide dinitrate and Losartan - Will increase Losartan to home dose 6. History of Polio - Reports that this occurred as a child - Has had difficulty with ambulation since that point - Notes that he uses a walker for assistance 7. s/p Hypokalemia / Hypomagnesemia 8. DVT prophylaxis - c/w heparin Disposition: - Will get physical therapy to evaluate VS,Fishbone, I+O VS, Fishbone, I+O Laboratory Tests 04/28/17 06:05 Red Blood Count 4.04 L, Mean Corpuscular Volume 88.9, Mean Corpuscular Hemoglobin 30.0, Mean Corpuscular Hemoglobin Concent 33.8, Red Cell Distribution Width 14.5, Neutrophils (%) (Auto) 73.1 H, Lymphocytes (%) (Auto) 17.7 L, Monocytes (%) (Auto) 6.2 H, Eosinophils (%) (Auto) 0.8, Basophils (%) ( Auto) 0.5, Neutrophils # (Auto) 6.8, Lymphocytes # (Auto) 1.8, Monocytes # (Auto ) 0.6, Eosinophils # (Auto) 0.1, Basophils # (Auto) 0.0, Calcium Level 8.3 L, Aspartate Amino Transf (AST/SGOT) 22, Alanine Aminotransferase (ALT/SGPT) 15, Total Creatine Kinase 162, Alkaline Phosphatase 50, Total Bilirubin 0.5, Total Protein 6.5, Albumin 3.1 L Vital Signs Date Time Temp Pulse Resp B/P (MAP) Pulse Ox O2 Delivery O2 Flow Rate FiO2 04/28/17 09:15 160/70 04/28/17 06:00 99.0 75 18 98 Room Air I&O- Last 24 Hours up to 6 AM 04/28/17 06:00 Intake Total 240 ml Output Total 0 ml Balance 240 ml SHAGUFTA WATERS MD Apr 28, 2017 12:13
[2017-04-28] MEDS ORDERED: LOSARTAN 50 MG TAB PO ONE (12:15)
[2017-04-28 14:00] VITALS: BP 170/92
[2017-04-28 18:00] VITALS: BP 180/82
[2017-04-28 22:00] VITALS: BP 152/86
[2017-04-29] MEDS: SLF 3 ML SYR IV SCH (05:21)
[2017-04-29] MEDS: ISOSORBIDE DIN (ISORDIL) 10 MG TAB PO SCH ×2 (05:29→12:33)
[2017-04-29 06:00] VITALS: BP 150/72
[2017-04-29] MEDS: LACTULOSE 20 GM/30 ML SYRUP UD PO SCH (07:52)
[2017-04-29] MEDS: FENOFIBRATE 145 MG TAB (TRICOR) PO SCH (07:53)
[2017-04-29] MEDS: CLOPIDOGREL 75 MG TAB PO SCH (07:53)
[2017-04-29] MEDS: NYSTATIN 100,000 UNITS/GM TOPICAL PWD 15 GM TOP SCH (07:54)
[2017-04-29] MEDS ORDERED: LOSARTAN 50 MG TAB PO SCH (09:00)
[2017-04-29 12:33] VITALS: BP 148/70
[2017-04-29] MEDS ORDERED: POTASSIUM CHLORIDE 10 MEQ SR TABLET PO ONE (13:30)
--- NOTE | 2017-04-29 16:20 | DSES ---
DATE OF ADMISSION: 04/24/2017 DATE OF DISCHARGE: 04/29/2017 ATTENDING PHYSICIAN: Dr. Jesse Ferris PRIMARY CARE PROVIDER: Will be established. REFERRING PHYSICIAN: None. CONSULTING PHYSICIAN: None. CONDITION ON DISCHARGE: Stable. FINAL DIAGNOSES: 1. Acute metabolic encephalopathy, likely secondary to medication overdose secondary to opiates, gabapentin, Baclofen, pregabalin, and Ambien. 2. Acute renal failure. PROCEDURES: None. HISTORY OF PRESENT ILLNESS: The patient is a 72-year-old male with a past medical history of coronary artery disease, status post coronary artery bypass graft (CABG), who was brought to the emergency department by his brother because of lethargy and confusion. The patient recently completed a trip from [place] and was at home. He was found unresponsive by his family. Emergency medical services (EMS) was called and he was given Narcan in the field and he responded. Upon arrival to the emergency room, he was given another dose of Narcan and responded appropriately. HOSPITAL COURSE: 1. Status post acute metabolic encephalopathy, likely secondary to medication overdose secondary to opiates, gabapentin, Baclofen, pregabalin and Ambien. Presented with confusion, lethargy and responded to Narcan in the field and in the emergency room. There has been a full resolution of his confusion, no focal deficits. CT scan on 04/26/2017 was negative for acute pathology, status post bicarbonate drip. Neuro checks were continued throughout the hospital course and were discontinued when his mental status improved. Physical therapy (PT) was called for evaluation and he was cleared by physical therapy for discharge home to his brother, who will continue to take care of him outpatient. The patient has appropriate living situation established in a home after discussion with his brother. 2. Status post nonanion gap metabolic acidosis. Normalized anion gap and bicarbonate, status post bicarbonate drip. 3. Status post acute renal failure, improving. Prerenal etiology, less likely secondary to postrenal etiology. Creatinine was elevated at 3.99 upon admission. Renal ultrasound on 04/25/2017 revealed chronic medical renal disease. 4. Status post leukocytosis. Chest x-ray on 04/26/2017 was negative. We will hold antibiotics at this point. 5. Hypertension. Continue with isosorbide dinitrate and losartan. We will continue with home doses upon discharge. 6. History of polio. Reports that this occurred as a child at age 4. He has been having difficulty with ambulation since that point and has been using a cane as an outpatient; however, during his hospitalization course he was given a walker for assistance and he has been given a walker up on discharge. 7. Status post hypokalemia and hypomagnesemia, which have been supplemented. 8. Deep vein thrombosis (DVT) prophylaxis. Continue with heparin. DISCHARGE MEDICATIONS: The patient will be discharged on the following medication list: - albuterol two puffs inhaled four times a day as needed for shortness of breath - Alfuzosin 10 mg by mouth daily - betamethasone one dose topically twice a day - Plavix 75 mg by mouth daily - fenofibrate 145 mg by mouth daily - isosorbide dinitrate 10 mg by mouth every six hours - lactulose 30 mL by mouth twice a day - losartan 100 mg by mouth daily - nifedipine 90 mg by mouth daily Stopped medications include: - baclofen 500 mg by mouth twice a day - gabapentin 300 mg by mouth three times a day - hydroxyzine 25 mg by mouth four times a day - Percocet one tablet by mouth four times a day - pregabalin 150 mg by mouth twice a day - Zolpidem 10 mg by mouth at night DISCHARGE INSTRUCTIONS: The patient has been advised to followup with his primary care provider within the next 7 days. He has been advised to remain compliant with treatment plan and medications and return to the emergency room if he experiences any problems. Time spent on discharge: 35 minutes. MTDD
== END 2017-04-29 15:00 | disposition home or self-care (01) | DRG 917 ==
LOC: M ED 21:04 → EDBD 21:04 → M ED INP 23:41 → M PCU 04-25 13:14 → M MS5PR 04-27 17:20
PROVIDERS: ATTEND Internal Medicine
DX: T40.2X4A Poisoning by other opioids, undetermined, initial encounter (principal); G93.41 Metabolic encephalopathy; N17.9 Acute kidney failure, unspecified; E87.2 Acidosis; T42.8X4A Poisoning by antiparkinsonism drugs and other central muscle-tone depressants, undetermined, initial encounter; T42.6X4A Poisoning by other antiepileptic and sedative-hypnotic drugs, undetermined, initial encounter; I25.10 Atherosclerotic heart disease of native coronary artery without angina pectoris; I12.9 Hypertensive chronic kidney disease with stage 1 through stage 4 chronic kidney disease, or unspecified chronic kidney disease; D72.829 Elevated white blood cell count, unspecified; E87.6 Hypokalemia; E83.42 Hypomagnesemia; Z79.899 Other long term (current) drug therapy; N18.9 Chronic kidney disease, unspecified

== ENCOUNTER → 2017-05-07 | Outpatient (REF) | payer MEDICARE ==
[~2017-05-07] MED LIST: ALFU10TA2 PO; AMBI10TA PO; BACL10TA2 PO; BENA25CA4 PO; BENA25TA10 PO; BETA115CR TOP; CLOP75TA2 PO; FENO145T PO; HYDR-3363 PO; ISOS1TAB12 PO; ISOS1TAB13 PO; LACT10SO29 PO; LOSA100T36 PO; LYRI150C PO; MIRT15TA3 PO; NEUR300C PO; NIFE1TAB PO; NIFE90TA3 PO; OXYC1TAB16 PO; PATIENT COMMENT; PERC10TA26 PO; PLAV1TAB2 PO; PROAAER10 INH; PROM50TA4 PO; RISP1TAB42 PO; SERT50TA PO; TRAZ10TA PO; TRIC145T22 PO; TYLE1TAB5 PO; VITA400C97 PO; ZOLP10TA2 PO; [UNRECOGNIZED DRUG - CODE] TOP
[2017-05-07 12:09] LABS: CALCIUM LEVEL 9.4 MG/DL (8.8-10.2); CREATININE FOR GFR 1.89 MG/DL (0.70-1.30); GLOMERULAR FILTRATION RATE 37.3 (>42)
== END ==
LOC: M SFHCPLAZ 09:49
PROVIDERS: ATTEND Family Medicine
DX: E87.6 Hypokalemia (principal)

== ENCOUNTER → 2017-05-15 | Outpatient (REF) | payer MEDICARE | LOC: M SFHCPLAZ 10:49 | PROVIDERS: ATTEND Family Medicine | DX: N17.9 Acute kidney failure, unspecified (principal); Z53.9 Procedure and treatment not carried out, unspecified reason ==

== ENCOUNTER 2017-05-16 15:31 | Inpatient (IN) | payer MEDICAID, MEDICARE ==
[~2017-05-16] VITALS: Ht 168.9 cm; Wt 59.9 kg
[~2017-05-16 15:31] MED LIST changes: -BENA25CA4 PO; -MIRT15TA3 PO; -RISP1TAB42 PO; -SERT50TA PO; -TRAZ10TA PO
[2017-05-16 16:27] LABS: MEAN CORPUSCULAR HEMOGLOBIN 29.9 pg (27.0-33.0); MEAN CORPUSCULAR HGB CONC 32.9 g/dl (32.0-36.5); MEAN CORPUSCULAR VOLUME 90.7 fl (80.0-96.0); RED CELL DISTRIBUTION WIDTH 14.8 % (11.5-14.5); WHITE BLOOD COUNT 7.9 K/mm3 (4.0-10.0)
[2017-05-16] MEDS ORDERED: NICOTINE 21MG/24HR 1 EA TRANSDERMAL TD ONE (16:45)
[2017-05-16 16:48] LABS: METHADONE URINE NEGATIVE (NEGATIVE)
[2017-05-16 17:00] LABS: ALBUMIN 3.4 GM/DL (3.2-5.2); ALKALINE PHOSPHATASE 52 U/L (45-117); ALT/SGPT 14 U/L (12-78); ANION GAP 9 MEQ/L (8-16); AST/SGOT 19 U/L (15-37); BILIRUBIN,DIRECT 0.1 MG/DL (0.0-0.2); BILIRUBIN,TOTAL 0.3 MG/DL (0.2-1.0); BLOOD UREA NITROGEN 21 MG/DL (7-18); CALCIUM LEVEL 8.5 MG/DL (8.8-10.2); CARBON DIOXIDE LEVEL 21 MEQ/L (21-32); CHLORIDE LEVEL 111 MEQ/L (98-107); CREATININE FOR GFR 1.42 MG/DL (0.70-1.30); GLOMERULAR FILTRATION RATE 51.9 (>42); GLUCOSE, FASTING 94 MG/DL (83-110); POTASSIUM SERUM 3.4 MEQ/L (3.5-5.1); SODIUM LEVEL 141 MEQ/L (136-145); TOTAL PROTEIN 6.5 GM/DL (6.4-8.2)
[2017-05-16] MEDS ORDERED: PROAAER10 INH (20:13)
[2017-05-16] MEDS ORDERED: ALFU10TA2 PO (20:13)
[2017-05-16] MEDS ORDERED: MIRT15TA3 PO (20:13)
[2017-05-16] MEDS ORDERED: FENO145T PO (20:13)
[2017-05-16] MEDS ORDERED: NIFE1TAB PO (20:13)
[2017-05-16] MEDS ORDERED: ISOS1TAB13 PO (20:13)
[2017-05-16] MEDS ORDERED: LOSA100T36 PO (20:13)
[2017-05-16] MEDS ORDERED: CLOP75TA2 PO (20:13)
[2017-05-16] MEDS ORDERED: traZODone 50 MG TAB PO PRN (20:15)
[2017-05-16] MEDS ORDERED: MOM 30ML SUSPENSION UDC PO PRN (20:15)
[2017-05-16 21:25] VITALS: BP 135/90
[2017-05-16] MEDS: ACETAMINOPHEN TAB 650MG DOSE (2X325MG) PO PRN (22:50)
[2017-05-16] MEDS ORDERED: ALBUTEROL 90 MCG/ACT 8GM HFA INHALER INH PRN (23:30)
[2017-05-17] MEDS: MIRTAZAPINE 15 MG TAB PO SCH ×2 (00:05→21:44)
[2017-05-17] MEDS: ACETAMINOPHEN TAB 650MG DOSE (2X325MG) PO PRN ×2 (05:45→16:31)
[2017-05-17 06:57] VITALS: BP 142/82
[2017-05-17] MEDS ORDERED: ISOSORBIDE DIN. (ISORDIL) 30 MG TAB PO SCH (09:00)
[2017-05-17] MEDS ORDERED: LOSARTAN 50 MG TAB PO SCH (09:00)
--- NOTE | 2017-05-17 09:01 | HPEPDOC ---
Medical History and Physical Date of Admission May 16, 2017 at 20:12 History and Physical PCP: none ATTENDING: Dr. Lenny Castillo HPI: 72yoM admitted to [facility] for unspecified depressive disorder/opiate abuse disorder, being medically examined today. The patient was most recently admitted to [facility] from 04/24/17-04/29/17 related to metabolic encephalopathy felt related to overdose of opiates, gabapentin, baclofen, Lyrica , and Ambien. At that time the patient reported he was using oxycodone. At discharge the patient was advised to discontinue opiates, gabapentin, baclofen, Lyrica, and Ambien. The patient states today he has been using hydrocodone 4 times per day. It is not clear to me where he has been obtaining this and he cannot recall who gave him the prescription. He did not receive any prescriptions for opiates at his discharge 04/29/17. Denies any fevers, chills, weakness, fatigue, MASON, CP, SOB, cough, palpitations, abdominal pain, N/V/D or changes in bowel or bladder habits. PMHx: History of polio as a child Unsteady gait. Patient reports using a cane at home. Chronic back pain Chronic thoracic pain Chronic foot pain Chronic pain COPD BPH Hyperlipidemia CAD/CABG 3 Hiatal hernia Hypertension PSHX: History of bilateral foot surgery Lumbar spine surgery CABG 3 SOCHX: Resides in: [facility], previously from [place] Marital Status: Kids: None Employment: Retired [employer] Tobacco use: One pack per day ETOH: Denies Illicit Drugs: Denies IV Drug Use: Denies Tattoos done unprofessionally: Denies FAMHX: Siblings: Alive, well Children: None Unexpected deaths due to medical reasons: None. ROS: As noted in HPI, otherwise 11pt ROS of systems reviewed and remarkable only for unsteady gait. Denies recent falls. Patient states he has been using a cane at home. PE: GEN: 72 yo M, appears stated age. Well-nourished, well developed. No acute distress. Alert and oriented x 3. Pleasant, interactive. HEENT: Normocephalic, atraumatic. Pupils are equal, round, and reactive to light. Extraocular movements are intact. No nystagmus appreciated. Sclera are nonicteric. Conjunctiva without injection. Nose midline. Nasal turbinates without bogginess. EACs both patent BL. TMs both visualized and jacobson with good cone of light, no bulging or erythema. No facial asymmetry. Moist mucous membranes. Dentition fair. Pharynx pink and moist, no cobblestoning. Neck supple , trachea midline. No lymphadenopathy or thyromegaly appreciated. CHEST: Regular rate and rhythm, +S1, +S2 LUNGS: Clear to auscultation bilaterally. No wheezes, rales, or rhonchi. Breathing appears symmetric and easy. Patient is speaking in full sentences. No accessory muscle use. ABD: Round, soft, non-tender, non-distended. +Bowel sounds throughout. No rebound or guarding. No costovertebral angle tenderness. EXT: No lower extremity edema appreciated. Chronic weakness in lower extremities related to history of polio. Contractures are noted of the feet, healed surgical scars bilaterally. SKIN: [place], dry, warm. Capillary refill <2sec. No rashes. NEURO: Alert and oriented x 3. Cranial nerves III-XII are intact. Gait is unsteady. EKG: Pending. Toxicology. Opiates noted to be negative. A&P: 72yoM admitted to [facility] for unspecified depressive disorder/opiate abuse disorder, being medically examined today. The patient was most recently admitted to [facility] from 04/24/17-04/29/17 related to metabolic encephalopathy felt related to overdose of opiates, gabapentin, baclofen, Lyrica , and Ambien. At that time the patient reported he was using oxycodone. At discharge the patient was advised to discontinue opiates, gabapentin, baclofen, Lyrica, and Ambien. 1. Psych. Plan per Psychiatry. Obtain baseline EKG to assure the safety of psychiatric medications as they can prolong the QT interval. 2. Nicotine dependence. Patch available. 3. CAD/CABG. Continue Plavix 75 mg daily, isosorbide 10 mg 4 times a day. 4. Follow up. No Primary Care Provider. Will attempt to establish PCP on discharge. 5. History of metabolic encephalopathy felt related to overdose of opiates, gabapentin, baclofen, Lyrica, and Ambien. Patient discharged from [facility] 04/29/17. Advised to discontinue using opiates, gabapentin, baclofen, Lyrica, and Ambien. 6. Hypokalemia. Recheck BMP. 7. Elevated serum creatinine. Recheck BMP. Baseline appears to be 1.1-1.2. 8. Hypertension. Continue losartan 100 mg daily, nifedipine 90 mg daily. 9. Hyperlipidemia. Continue fenofibrate 145 mg by mouth daily. 10. COPD. Continue albuterol 2 puffs every 4 hours as needed. 11. BPH. Continue alfuzosin 10 mg by mouth daily. 12. History of polio as child with chronic lower extremity weakness. 13. Chronic unsteady gait. Follow precautions requested. Ambulation with assistance. Request physical therapy evaluation. 14. Chronic pain. As noted above at discharge 04/29/17 patient was discontinued from opiates, gabapentin, baclofen, Lyrica, and Ambien. ISTOP accessed today Ref # [id number] yielded no results with extended state search. Patient is reporting pain in his thoracic spine, lumbar spine lower extremities and bilateral feet. Request Pain management opinion. Apply Lidoderm patch daily to thoracic spine and lumbar spine. 15. Anemia. Hemoglobin is noted to be 11.4. Baseline appears to be 11-12. Request iron studies, vitamin B12, folate. 16. Staff member Carl present throughout exam. Vital Signs Vital Signs Date Time Temp Pulse Resp B/P (MAP) Pulse Ox O2 Delivery O2 Flow Rate FiO2 05/17/17 06:57 97.8 67 18 142/82 (102) Room Air 05/16/17 21:25 98 Laboratory Data Labs 24H Laboratory Tests 2 05/16/17 16:13: Urine Amphetamines Screen NEGATIVE, Urine Benzodiazepines Screen NEGATIVE, Urine Opiates Screen NEGATIVE, Urine Methadone Screen NEGATIVE, Urine Barbiturates Screen NEGATIVE, Urine Phencyclidine Screen NEGATIVE, Urine Cocaine Metabolite Screen NEGATIVE, Urine Cannabinoids Screen NEGATIVE 05/16/17 16:17: Anion Gap 9, Glomerular Filtration Rate 51.9, Calcium Level 8.5L, Aspartate Amino Transf (AST/SGOT) 19, Alanine Aminotransferase (ALT/SGPT) 14, Alkaline Phosphatase 52, Total Bilirubin 0.3, Direct Bilirubin 0.1, Total Protein 6.5, Albumin 3.4, Albumin/Globulin Ratio 1.10, Thyroid Stimulating Hormone (TSH) 1.210, Salicylates Level 2.2L, Acetaminophen Level < 2.0L, Ethyl Alcohol Level < 0.003 CBC/BMP Laboratory Tests 05/16/17 16:17 Red Blood Count 3.81 L, Mean Corpuscular Volume 90.7, Mean Corpuscular Hemoglobin 29.9, Mean Corpuscular Hemoglobin Concent 32.9, Red Cell Distribution Width 14.8 H Home Medications Scheduled Alfuzosin Hydrochloride (Alfuzosin HCl ER) 10 Mg Tab, 10 MG PO DAILY Clopidogrel Bisulfate (Clopidogrel) 75 Mg Tab, 75 MG PO DAILY Fenofibrate (Fenofibrate) 145 Mg Tab, 145 MG PO DAILY Isosorbide Dinitrate (Isosorbide Dinitrate) 10 Mg Tab, 10 MG PO QID Losartan Potassium (Losartan Potassium) 100 Mg Tab, 100 MG PO DAILY Mirtazapine (Mirtazapine) 15 Mg Tab, 15 MG PO QHS Nifedipine (Nifedipine ER) 90 Mg Tab, 90 MG PO DAILY Scheduled PRN Albuterol Sulfate (Proair Hfa) 108 Mcg/Act Aer, 2 PUFF INH Q4H PRN for SHORTNESS OF BREATH Allergies Coded Allergies: Codeine (Verified Allergy, Unknown, 05/16/17) Iodine (Verified Allergy, Unknown, 05/16/17) Morphine (Verified Allergy, Unknown, 05/16/17) Shellfish Allergy (Verified Allergy, Unknown, 05/16/17) Fatemeh Johnson May 17, 2017 09:01
[2017-05-17] MEDS: NICOTINE 21MG/24HR 1 EA TRANSDERMAL TD SCH (09:33)
[2017-05-17] MEDS: ISOSORBIDE DIN (ISORDIL) 10 MG TAB PO SCH ×4 (09:33→21:52)
[2017-05-17] MEDS: LOSARTAN 50 MG TAB PO SCH (09:34)
[2017-05-17] MEDS: LIDOCAINE 5% (LIDODERM) PATCH TD SCH (09:36)
[2017-05-17] MEDS: NIFEdipine 30 MG XL TAB PO SCH (09:36)
[2017-05-17] MEDS: FENOFIBRATE 145 MG TAB (TRICOR) PO SCH (09:36)
[2017-05-17] MEDS: CLOPIDOGREL 75 MG TAB PO SCH (09:37)
[2017-05-17 10:58] LABS: MEAN CORPUSCULAR HEMOGLOBIN 29.5 pg (27.0-33.0); MEAN CORPUSCULAR HGB CONC 32.4 g/dl (32.0-36.5); MEAN CORPUSCULAR VOLUME 91.2 fl (80.0-96.0); RED CELL DISTRIBUTION WIDTH 14.7 % (11.5-14.5); WHITE BLOOD COUNT 8.6 K/mm3 (4.0-10.0)
--- NOTE | 2017-05-17 11:22 | ECGEPIP ---
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
[2017-05-17 11:34] LABS: ALBUMIN 3.4 GM/DL (3.2-5.2); ALBUMIN/GLOBULIN RATIO 0.94 (1.00-1.93); BILIRUBIN,TOTAL 0.4 MG/DL (0.2-1.0); CALCIUM LEVEL 8.7 MG/DL (8.8-10.2); CREATININE FOR GFR 1.57 MG/DL (0.70-1.30); GLOMERULAR FILTRATION RATE 46.2 (>42); PERCENT SATURATION 21.1 % (19.7-37.4); POTASSIUM SERUM 3.6 MEQ/L (3.5-5.1)
[2017-05-17 11:54] LABS: FOLATE 11.1 NG/ML (>5.4)
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
[2017-05-17] MEDS: NYSTATIN 100,000 UNITS/GM TOPICAL PWD 15 GM TOP SCH ×2 (12:25→21:44)
[2017-05-17] MEDS: hydrOXYzine 25 MG TAB PO PRN (16:31)
[2017-05-17 18:00] VITALS: BP 130/71
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
[2017-05-17] MEDS: **NOTE PATIENT COMMENT** MISC XX SCH (21:00)
--- NOTE | 2017-05-18 00:28 | ECGEPIP ---
Stationary ECG Study [facility] Test Date: 2017-05-17 Pat Name: PASCUAL GOINS Department: Room: [place] [address] Gender: M Breaker Layer: WOLF : 1945 Requested By: Fatemeh Johnson Order Number: [id number] Reading MD: Lenny Castillo Measurements Intervals [place] Rate: 77 P: 35 [place]: 173 QRS: -49 QRSD: 147 T: 29 QT: 423 QTc: 481 Interpretive Statements SINUS RHYTHM WITH FREQUENT SUPRAVENTRICULAR PREMATURE COMPLEXES RIGHT BUNDLE BRANCH BLOCK LEFT ANTERIOR FASCICULAR BLOCK Similar to tracing done 05-16-17 Electronically Signed On 05-18-2017 0:28:21 EDT by Lenny Castillo
[2017-05-18] MEDS: ACETAMINOPHEN TAB 650MG DOSE (2X325MG) PO PRN ×3 (05:58→18:59)
[2017-05-18 06:18] VITALS: BP 143/68
[2017-05-18 07:03] LABS: MEAN CORPUSCULAR HEMOGLOBIN 29.4 pg (27.0-33.0); MEAN CORPUSCULAR HGB CONC 32.3 g/dl (32.0-36.5); MEAN CORPUSCULAR VOLUME 91.1 fl (80.0-96.0); RED CELL DISTRIBUTION WIDTH 14.8 % (11.5-14.5); WHITE BLOOD COUNT 11.5 K/mm3 (4.0-10.0)
[2017-05-18 07:29] LABS: ALBUMIN 3.1 GM/DL (3.2-5.2); ALBUMIN/GLOBULIN RATIO 0.97 (1.00-1.93); BILIRUBIN,TOTAL 0.3 MG/DL (0.2-1.0); CALCIUM LEVEL 8.3 MG/DL (8.8-10.2); CREATININE FOR GFR 1.34 MG/DL (0.70-1.30); GLOMERULAR FILTRATION RATE 55.5 (>42); POTASSIUM SERUM 3.4 MEQ/L (3.5-5.1); TOTAL PROTEIN 6.3 GM/DL (6.4-8.2)
[2017-05-18 08:35] LABS: MAGNESIUM LEVEL 2.1 MG/DL (1.8-2.4)
[2017-05-18] MEDS: ISOSORBIDE DIN (ISORDIL) 10 MG TAB PO SCH ×4 (08:36→20:30)
[2017-05-18] MEDS: CLOPIDOGREL 75 MG TAB PO SCH (08:36)
[2017-05-18] MEDS: LOSARTAN 50 MG TAB PO SCH (08:36)
[2017-05-18] MEDS: NIFEdipine 30 MG XL TAB PO SCH (08:37)
[2017-05-18] MEDS: NICOTINE 21MG/24HR 1 EA TRANSDERMAL TD SCH (08:38)
[2017-05-18] MEDS: LIDOCAINE 5% (LIDODERM) PATCH TD SCH (08:38)
[2017-05-18] MEDS: NYSTATIN 100,000 UNITS/GM TOPICAL PWD 15 GM TOP SCH ×2 (08:40→20:30)
[2017-05-18] MEDS ORDERED: POTASSIUM CHLORIDE 10 MEQ SR TABLET PO ONE (09:00)
--- NOTE | 2017-05-18 09:11 | IPNPDOC ---
Date Seen The patient was seen on 05/18/17. Progress Note PCP: none ATTENDING: Dr. Lenny Castillo HPI: 72yoM admitted to [facility] for unspecified depressive disorder/opiate abuse disorder, following up with patient today regarding chronic pain. The patient was most recently admitted to [facility] from 04/24/17-04/29/17 related to metabolic encephalopathy felt related to overdose of opiates, gabapentin, baclofen, Lyrica, and Ambien. At that time the patient reported he was using oxycodone. At discharge the patient was advised to discontinue opiates , gabapentin, baclofen, Lyrica, and Ambien. Today the patient reports his pain is improved with use of Lidoderm patch. He reports it has been controlled. He is aware to use Tylenol if needed. Ambulation has improved with use of rolling walker. He denies any falls. Outpatient physical therapy was recommended as per PT eval. Patient states he has not been eating and drinking well. He states he has not been drinking a lot of fluids. Denies any fevers, chills, MASON, CP, SOB, cough, palpitations, abdominal pain, N/V /D or changes in bowel or bladder habits. PMHx: History of polio as a child Unsteady gait. Patient reports using a cane at home. Chronic back pain Chronic thoracic pain Chronic foot pain Chronic pain COPD BPH Hyperlipidemia CAD/CABG 3 Hiatal hernia Hypertension PSHX: History of bilateral foot surgery Lumbar spine surgery CABG 3 PE: GEN: 72 yo M, appears stated age. Well-nourished, well developed. No acute distress. Alert and oriented x 3. Pleasant, interactive. HEENT: Normocephalic, atraumatic. Pupils are equal, round, and reactive to light. Extraocular movements are intact. No nystagmus appreciated. Sclera are nonicteric. Conjunctiva without injection. Nose midline. Nasal turbinates without bogginess. No facial asymmetry. Moist mucous membranes. Pharynx pink and moist, no cobblestoning. Neck supple, trachea midline. No lymphadenopathy or thyromegaly appreciated. CHEST: Regular rate and rhythm, +S1, +S2 LUNGS: Clear to auscultation bilaterally. No wheezes, rales, or rhonchi. Breathing appears symmetric and easy. Patient is speaking in full sentences. No accessory muscle use. ABD: Round, soft, non-tender, non-distended. +Bowel sounds throughout. No rebound or guarding. No costovertebral angle tenderness. EXT: No lower extremity edema appreciated. Chronic weakness in lower extremities related to history of polio. Contractures are noted of the feet, healed surgical scars bilaterally. SKIN: [place], dry, warm. Capillary refill <2sec. No rashes. NEURO: Alert and oriented x 3. Cranial nerves III-XII are intact. Gait is unsteady. Patient is currently using wheeled walker. EK05/17/17 SINUS RHYTHM WITH FREQUENT SUPRAVENTRICULAR PREMATURE COMPLEXES RIGHT BUNDLE BRANCH BLOCK LEFT ANTERIOR FASCICULAR BLOCK Similar to tracing done 05-16-17. Toxicology. Opiates noted to be negative. A&P: 72yoM admitted to [facility] for unspecified depressive disorder/opiate abuse disorder, being medically examined today. The patient was most recently admitted to [facility] from 04/24/17-04/29/17 related to metabolic encephalopathy felt related to overdose of opiates, gabapentin, baclofen, Lyrica , and Ambien. At that time the patient reported he was using oxycodone. At discharge the patient was advised to discontinue opiates, gabapentin, baclofen, Lyrica, and Ambien. 1. Psych. Plan per Psychiatry. EKG on file. 2. Nicotine dependence. Patch available. 3. CAD/CABG. Continue Plavix 75 mg daily, isosorbide 10 mg 4 times a day. Patient reports no cardiac symptoms at this time. 4. Follow up. No Primary Care Provider. Will attempt to establish PCP on discharge. 5. History of metabolic encephalopathy felt related to overdose of opiates, gabapentin, baclofen, Lyrica, and Ambien. Patient discharged from [facility] 04/29/17. Advised to discontinue using opiates, gabapentin, baclofen, Lyrica, and Ambien. 6. Hypokalemia. Oral supplement 1 today. Magnesium level pending. Recheck CMP in a.m. 7. Elevated serum creatinine. Trend improving. Baseline appears to be 1.1-1.2. Recheck CMP in a.m. 8. Hypertension. Continue losartan 100 mg daily, nifedipine 90 mg daily. Blood pressure controlled. 9. Hyperlipidemia. Continue fenofibrate 145 mg by mouth daily. 10. COPD. Continue albuterol 2 puffs every 4 hours as needed. 11. BPH. Continue alfuzosin 10 mg by mouth daily. 12. History of polio as child with chronic lower extremity weakness. 13. Chronic unsteady gait. Fall precautions requested. Ambulation with assistance. Patient is using to will walker as per PT recommendations. Request outpatient PT as recommended by evaluation. 14. Chronic pain. As noted above at discharge 04/29/17 patient was discontinued from opiates, gabapentin, baclofen, Lyrica, and Ambien. ISTOP accessed today Ref # [id number] yielded no results with extended state search. Patient is reporting pain in his thoracic spine, lumbar spine lower extremities and bilateral feet. Pain management opinion appreciated. Apply Lidoderm patch daily to thoracic spine and lumbar spine. Continue Tylenol as needed. At this time patient states his pain is controlled with use of Lidoderm patch. Monitor. 15. Anemia. Hemoglobin is noted to be 11.0. Baseline appears to be 11-12. Iron studies, vitamin B12, folate completed. Monitor. 16. Poor by mouth intake. Encourage oral intake. Daily weight. Intake output. Recheck CMP and CBC in a.m. Request nutrition consult. 17. Leukocytosis. Patient is asymptomatic. Afebrile. Recheck CBC in a.m. Check UA/urine culture. 18. Staff member Vic present throughout exam. VS, I&O, 24H, Gabby Vital Signs/I&O Vital Signs Date Time Temp Pulse Resp B/P (MAP) Pulse Ox O2 Delivery O2 Flow Rate FiO2 05/18/17 08:36 129/76 05/18/17 06:18 98.4 20 85 05/17/17 06:57 Room Air 05/16/17 21:25 98 Laboratory Data 24H LABS Laboratory Tests 2 05/17/17 10:48: Anion Gap 7L, Glomerular Filtration Rate 46.2, Blood Urea Nitrogen 20H, Creatinine 1.57H, Sodium Level 145, Potassium Level 3.6, Chloride Level 112H, Carbon Dioxide Level 26, Calcium Level 8.7L, Aspartate Amino Transf (AST/SGOT) 22, Alanine Aminotransferase (ALT/SGPT) 18, Alkaline Phosphatase 54, Total Bilirubin 0.4, Total Protein 7.0, Albumin 3.4, Magnesium Level 2.0, Iron Level 91, Total Iron Binding Capacity 432, Transferrin % Saturation 21.1, Ferritin 133 , Albumin/Globulin Ratio 0.94L, Vitamin B12 Level 390, Folate 11.1 05/18/17 06:39: Anion Gap 9, Glomerular Filtration Rate 55.5, Blood Urea Nitrogen 21H, Creatinine 1.34H, Sodium Level 147H, Potassium Level 3.4L, Chloride Level 116H, Carbon Dioxide Level 22, Calcium Level 8.3L, Aspartate Amino Transf (AST/SGOT) 17, Alanine Aminotransferase (ALT/SGPT) 13, Alkaline Phosphatase 50, Total Bilirubin 0.3, Total Protein 6.3L, Albumin 3.1L, Magnesium Level 2.1, Albumin/ Globulin Ratio 0.97L CBC/BMP Laboratory Tests 05/17/17 10:48 Red Blood Count 4.23 L, Mean Corpuscular Volume 91.2, Mean Corpuscular Hemoglobin 29.5, Mean Corpuscular Hemoglobin Concent 32.4, Red Cell Distribution Width 14.7 H, Calcium Level 8.7 L, Aspartate Amino Transf (AST/SGOT ) 22, Alanine Aminotransferase (ALT/SGPT) 18, Alkaline Phosphatase 54, Total Bilirubin 0.4, Total Protein 7.0, Albumin 3.4 05/18/17 06:39 Red Blood Count 3.76 L, Mean Corpuscular Volume 91.1, Mean Corpuscular Hemoglobin 29.4, Mean Corpuscular Hemoglobin Concent 32.3, Red Cell Distribution Width 14.8 H, Calcium Level 8.3 L, Aspartate Amino Transf (AST/SGOT ) 17, Alanine Aminotransferase (ALT/SGPT) 13, Alkaline Phosphatase 50, Total Bilirubin 0.3, Total Protein 6.3 L, Albumin 3.1 L Fatemeh Johnson May 18, 2017 09:11
[2017-05-18] MEDS: FENOFIBRATE 145 MG TAB (TRICOR) PO SCH (10:32)
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
[2017-05-18] MEDS: hydrOXYzine 25 MG TAB PO PRN ×2 (13:03→18:58)
[2017-05-18 18:00] VITALS: BP 119/69
[2017-05-18] MEDS: MIRTAZAPINE 15 MG TAB PO SCH (20:29)
[2017-05-18] MEDS: **NOTE PATIENT COMMENT** MISC XX SCH (20:32)
[2017-05-19 06:28] LABS: BASO # 0.1 K/mm3 (0.0-0.2); BASO % 0.6 % (0.0-1.0); EOS # 0.2 K/mm3 (0.0-0.50); EOS % 1.7 % (0.0-3.0); LARGE UNSTAINED CELL # 0.1 K/mm3 (0.0-0.4); LARGE UNSTAINED CELL % 0.8 % (0.0-4.0); LYMPH # 1.6 K/mm3 (1.5-4.5); MEAN CORPUSCULAR HEMOGLOBIN 29.5 pg (27.0-33.0); MEAN CORPUSCULAR HGB CONC 32.4 g/dl (32.0-36.5); MEAN CORPUSCULAR VOLUME 90.8 fl (80.0-96.0); MONO # 0.4 K/mm3 (0.0-0.8); MONO % 3.4 % (0.0-5.0); NEUTROPHILS # 10.5 K/mm3 (1.8-7.7); NEUTROPHILS % 81.5 % (36.0-66.0); PLATELET COUNT, AUTOMATED 210 k/mm3 (150-450); RED CELL DISTRIBUTION WIDTH 14.9 % (11.5-14.5); WHITE BLOOD COUNT 12.8 K/mm3 (4.0-10.0)
[2017-05-19 06:30] VITALS: BP 162/94
[2017-05-19 06:49] LABS: ALBUMIN 3.3 GM/DL (3.2-5.2); BILIRUBIN,TOTAL 0.4 MG/DL (0.2-1.0); CALCIUM LEVEL 8.2 MG/DL (8.8-10.2); CREATININE FOR GFR 1.28 MG/DL (0.70-1.30); GLOMERULAR FILTRATION RATE 58.5 (>42); POTASSIUM SERUM 3.5 MEQ/L (3.5-5.1); TOTAL PROTEIN 6.6 GM/DL (6.4-8.2)
[2017-05-19 07:43] VITALS: BP 140/84
[2017-05-19] MEDS: FENOFIBRATE 145 MG TAB (TRICOR) PO SCH (08:13)
[2017-05-19] MEDS: NIFEdipine 30 MG XL TAB PO SCH (08:13)
[2017-05-19] MEDS: ISOSORBIDE DIN (ISORDIL) 10 MG TAB PO SCH ×4 (08:13→20:08)
[2017-05-19] MEDS: NICOTINE 21MG/24HR 1 EA TRANSDERMAL TD SCH (08:14)
[2017-05-19] MEDS: LOSARTAN 50 MG TAB PO SCH (08:14)
[2017-05-19] MEDS: LIDOCAINE 5% (LIDODERM) PATCH TD SCH (08:14)
[2017-05-19] MEDS: CLOPIDOGREL 75 MG TAB PO SCH (08:14)
[2017-05-19] MEDS: NYSTATIN 100,000 UNITS/GM TOPICAL PWD 15 GM TOP SCH ×2 (08:15→20:09)
[2017-05-19 12:11] VITALS: BP 139/74
[2017-05-19] MEDS: hydrOXYzine 25 MG TAB PO PRN ×2 (13:12→20:09)
[2017-05-19] MEDS: ACETAMINOPHEN TAB 650MG DOSE (2X325MG) PO PRN (17:03)
[2017-05-19 18:13] VITALS: BP 140/72
[2017-05-19] MEDS: MIRTAZAPINE 15 MG TAB PO SCH (20:08)
[2017-05-19] MEDS: **NOTE PATIENT COMMENT** MISC XX SCH (21:21)
[2017-05-20] MEDS: ACETAMINOPHEN TAB 650MG DOSE (2X325MG) PO PRN ×2 (05:47→17:14)
[2017-05-20 06:04] VITALS: BP 150/96
[2017-05-20] MEDS: LIDOCAINE 5% (LIDODERM) PATCH TD SCH (09:48)
[2017-05-20] MEDS: NYSTATIN 100,000 UNITS/GM TOPICAL PWD 15 GM TOP SCH ×2 (09:49→20:08)
[2017-05-20] MEDS: NIFEdipine 30 MG XL TAB PO SCH (09:49)
[2017-05-20] MEDS: CLOPIDOGREL 75 MG TAB PO SCH (09:49)
[2017-05-20] MEDS: NICOTINE 21MG/24HR 1 EA TRANSDERMAL TD SCH (09:49)
[2017-05-20] MEDS: ISOSORBIDE DIN (ISORDIL) 10 MG TAB PO SCH ×4 (09:50→20:08)
[2017-05-20] MEDS: FENOFIBRATE 145 MG TAB (TRICOR) PO SCH (09:50)
[2017-05-20] MEDS: LOSARTAN 50 MG TAB PO SCH (09:50)
[2017-05-20 18:21] VITALS: BP 134/79
[2017-05-20] MEDS: MIRTAZAPINE 15 MG TAB PO SCH (20:06)
[2017-05-20] MEDS: **NOTE PATIENT COMMENT** MISC XX SCH (20:08)
[2017-05-21 06:25] LABS: BASO # 0.1 K/mm3 (0.0-0.2); BASO % 0.5 % (0.0-1.0); EOS # 0.2 K/mm3 (0.0-0.50); EOS % 1.4 % (0.0-3.0); LARGE UNSTAINED CELL # 0.2 K/mm3 (0.0-0.4); LARGE UNSTAINED CELL % 1.2 % (0.0-4.0); LYMPH # 2.3 K/mm3 (1.5-4.5); MEAN CORPUSCULAR HEMOGLOBIN 29.7 pg (27.0-33.0); MEAN CORPUSCULAR HGB CONC 32.6 g/dl (32.0-36.5); MEAN CORPUSCULAR VOLUME 90.9 fl (80.0-96.0); MONO # 0.6 K/mm3 (0.0-0.8); MONO % 3.9 % (0.0-5.0); PLATELET COUNT, AUTOMATED 218 k/mm3 (150-450); RED CELL DISTRIBUTION WIDTH 15.1 % (11.5-14.5); WHITE BLOOD COUNT 14.1 K/mm3 (4.0-10.0)
[2017-05-21 06:42] VITALS: BP 171/90
[2017-05-21 06:53] LABS: ALBUMIN 3.2 GM/DL (3.2-5.2); ALBUMIN/GLOBULIN RATIO 0.94 (1.00-1.93); BILIRUBIN,TOTAL 0.4 MG/DL (0.2-1.0); CALCIUM LEVEL 8.5 MG/DL (8.8-10.2); CREATININE FOR GFR 1.38 MG/DL (0.70-1.30); GLOMERULAR FILTRATION RATE 53.6 (>42); POTASSIUM SERUM 3.7 MEQ/L (3.5-5.1); TOTAL PROTEIN 6.6 GM/DL (6.4-8.2)
[2017-05-21] MEDS: NICOTINE 21MG/24HR 1 EA TRANSDERMAL TD SCH (09:25)
[2017-05-21] MEDS: NIFEdipine 30 MG XL TAB PO SCH (09:26)
[2017-05-21] MEDS: ISOSORBIDE DIN (ISORDIL) 10 MG TAB PO SCH ×4 (09:27→20:37)
[2017-05-21] MEDS: FENOFIBRATE 145 MG TAB (TRICOR) PO SCH (09:27)
[2017-05-21] MEDS: LOSARTAN 50 MG TAB PO SCH (09:27)
[2017-05-21] MEDS: CLOPIDOGREL 75 MG TAB PO SCH (09:27)
[2017-05-21] MEDS: LIDOCAINE 5% (LIDODERM) PATCH TD SCH (09:27)
[2017-05-21] MEDS: NYSTATIN 100,000 UNITS/GM TOPICAL PWD 15 GM TOP SCH ×2 (09:28→20:36)
--- NOTE | 2017-05-21 09:33 | IPNPDOC ---
Date Seen The patient was seen on 05/21/17. Progress Note PCP: none ATTENDING: Dr. Lenny Castillo HPI: 72yoM admitted to [facility] for unspecified depressive disorder/opiate abuse disorder, following up with patient today regarding CXR this AM. The patient was most recently admitted to [facility] from 04/24/17-04/29/17 related to metabolic encephalopathy felt related to overdose of opiates, gabapentin, baclofen, Lyrica, and Ambien. At that time the patient reported he was using oxycodone. At discharge the patient was advised to discontinue opiates , gabapentin, baclofen, Lyrica, and Ambien. Today the patient reports his pain is controlled with use of Lidoderm patch. He is aware to use Tylenol if needed. Ambulation has improved with use of rolling walker. He denies any falls. Outpatient physical therapy was recommended as per PT eval. His feet continue to bother him but is better if he wears shoes. Patient states he has not been eating and drinking well. He states he has not been drinking a lot of fluids. Weight is decreased from admission. Pt states this is because of his anxiety and depression. Denies any fevers, chills, MASON, CP, SOB, cough, palpitations, abdominal pain, N/V /D or changes in bowel or bladder habits. PMHx: History of polio as a child Unsteady gait. Patient reports using a cane at home. Chronic back pain Chronic thoracic pain Chronic foot pain Chronic pain COPD BPH Hyperlipidemia CAD/CABG 3 Hiatal hernia Hypertension PSHX: History of bilateral foot surgery Lumbar spine surgery CABG 3 PE: GEN: 72 yo M, appears stated age. Well-nourished, well developed. No acute distress. Alert and oriented x 3. Pleasant, interactive. HEENT: Normocephalic, atraumatic. Pupils are equal, round, and reactive to light. Extraocular movements are intact. No nystagmus appreciated. Sclera are nonicteric. Conjunctiva without injection. Nose midline. Nasal turbinates without bogginess. No facial asymmetry. Moist mucous membranes. Pharynx pink and moist, no cobblestoning. Neck supple, trachea midline. No lymphadenopathy or thyromegaly appreciated. CHEST: Regular rate and rhythm, +S1, +S2 LUNGS: Clear to auscultation bilaterally. No wheezes, rales, or rhonchi. Breathing appears symmetric and easy. Patient is speaking in full sentences. No accessory muscle use. ABD: Round, soft, non-tender, non-distended. +Bowel sounds throughout. No rebound or guarding. No costovertebral angle tenderness. EXT: No lower extremity edema appreciated. Chronic weakness in lower extremities related to history of polio. Contractures are noted of the feet, healed surgical scars bilaterally. SKIN: [place], dry, warm. Capillary refill <2sec. No rashes. NEURO: Alert and oriented x 3. Cranial nerves III-XII are intact. Gait is unsteady. Patient is currently using wheeled walker. EK05/17/17 SINUS RHYTHM WITH FREQUENT SUPRAVENTRICULAR PREMATURE COMPLEXES RIGHT BUNDLE BRANCH BLOCK LEFT ANTERIOR FASCICULAR BLOCK Similar to tracing done 05-16-17. Toxicology. Opiates noted to be negative. A&P: 72yoM admitted to [facility] for unspecified depressive disorder/opiate abuse disorder, being medically examined today. The patient was most recently admitted to [facility] from 04/24/17-04/29/17 related to metabolic encephalopathy felt related to overdose of opiates, gabapentin, baclofen, Lyrica , and Ambien. At that time the patient reported he was using oxycodone. At discharge the patient was advised to discontinue opiates, gabapentin, baclofen, Lyrica, and Ambien. 1. Psych. Plan per Psychiatry. EKG on file. Will update EKG. 2. Nicotine dependence. Patch available. 3. CAD/CABG. Continue Plavix 75 mg daily, isosorbide 10 mg 4 times a day. Patient reports no cardiac symptoms at this time. 4. Follow up. No Primary Care Provider. Will attempt to establish PCP on discharge. 5. History of metabolic encephalopathy felt related to overdose of opiates, gabapentin, baclofen, Lyrica, and Ambien. Patient discharged from [facility] 04/29/17. Advised to discontinue using opiates, gabapentin, baclofen, Lyrica, and Ambien. 6. Hypokalemia. Oral supplement 1 05/18. Magnesium level WNL. Recheck CMP in a.m. 7. Elevated serum creatinine. 1.38. Baseline appears to be 1.1-1.2. Recheck CMP in a.m. 8. Hypertension. Continue losartan 100 mg daily, nifedipine 90 mg daily. Blood pressure controlled. 9. Hyperlipidemia. Continue fenofibrate 145 mg by mouth daily. 10. COPD. Continue albuterol 2 puffs every 4 hours as needed. 11. BPH. Continue alfuzosin 10 mg by mouth daily. 12. History of polio as child with chronic lower extremity weakness. 13. Chronic unsteady gait. Fall precautions requested. Ambulation with assistance. Patient is using to will walker as per PT recommendations. Request outpatient PT as recommended by evaluation. 14. Chronic pain. As noted above at discharge 04/29/17 patient was discontinued from opiates, gabapentin, baclofen, Lyrica, and Ambien. ISTOP accessed today Ref # [id number] yielded no results with extended state search. Patient is reporting pain in his thoracic spine, lumbar spine lower extremities and bilateral feet. Pain management opinion appreciated. Apply Lidoderm patch daily to thoracic spine and lumbar spine. Continue Tylenol as needed. At this time patient states his pain is controlled with use of Lidoderm patch. Monitor. 15. Anemia. Hemoglobin is noted to be 11.5. Baseline appears to be 11-12. Iron studies, vitamin B12, folate completed. Monitor. 16. Poor by mouth intake. Pt states that this is related to his anxiety and depression. Encourage oral intake. Daily weight. Intake output. Ensure supplements, but Pt states he does not want to drink ensure. Encourage OOB. Recheck CMP and CBC in a.m. Nutrition consult completed. 17. Leukocytosis. Patient is asymptomatic. Currently afebrile. Tmax 100.6 05/20 AM. Recheck CBC in a.m. Urine culture neg 05/18/17. UA/UC pending. CXR pending. Add I/S. Duonebs x 48 hrs. Encourage OOB. 18. Staff member Lenny present during exam. VS, I&O, 24H, Jonibonbria Vital Signs/I&O Vital Signs Date Time Temp Pulse Resp B/P (MAP) Pulse Ox O2 Delivery O2 Flow Rate FiO2 05/21/17 06:42 97.4 90 171/90 (117) 18 05/20/17 18:21 16 05/17/17 06:57 Room Air I&O- Last 24 Hours up to 6 AM 05/21/17 06:00 Intake Total 480 ml Output Total 450 ml Balance 30 ml Laboratory Data 24H LABS Laboratory Tests 2 05/21/17 06:04: White Blood Count 14.1H, Red Blood Count 3.87L, Hemoglobin 11.5L, Hematocrit 35.2L, Mean Corpuscular Volume 90.9, Mean Corpuscular Hemoglobin 29.7, Mean Corpuscular Hemoglobin Concent 32.6, Red Cell Distribution Width 15.1H, Platelet Count 218, Neutrophils (%) (Auto) 78.0H, Lymphocytes (%) (Auto) 15.0L, Monocytes (%) (Auto) 3.9, Eosinophils (%) (Auto) 1.4, Basophils (%) (Auto) 0.5, Neutrophils # (Auto) 11.0H, Lymphocytes # (Auto) 2.3, Monocytes # (Auto) 0.6, Eosinophils # (Auto) 0.2, Basophils # (Auto) 0.1, Large Unclassified Cells % 1.2 , Large Unclassified Cells # 0.2, Anion Gap 12, Glomerular Filtration Rate 53.6 , Blood Urea Nitrogen 25H, Creatinine 1.38H, Sodium Level 146H, Potassium Level 3.7, Chloride Level 115H, Carbon Dioxide Level 19L, Calcium Level 8.5L, Aspartate Amino Transf (AST/SGOT) 13L, Alanine Aminotransferase (ALT/SGPT) 12, Alkaline Phosphatase 59, Total Bilirubin 0.4, Total Protein 6.6, Albumin 3.2, Albumin/Globulin Ratio 0.94L, Amylase Level 57, Lipase 291 CBC/BMP Laboratory Tests 05/21/17 06:04 Red Blood Count 3.87 L, Mean Corpuscular Volume 90.9, Mean Corpuscular Hemoglobin 29.7, Mean Corpuscular Hemoglobin Concent 32.6, Red Cell Distribution Width 15.1 H, Neutrophils (%) (Auto) 78.0 H, Lymphocytes (%) (Auto ) 15.0 L, Monocytes (%) (Auto) 3.9, Eosinophils (%) (Auto) 1.4, Basophils (%) ( Auto) 0.5, Neutrophils # (Auto) 11.0 H, Lymphocytes # (Auto) 2.3, Monocytes # ( Auto) 0.6, Eosinophils # (Auto) 0.2, Basophils # (Auto) 0.1, Calcium Level 8.5 L , Aspartate Amino Transf (AST/SGOT) 13 L, Alanine Aminotransferase (ALT/SGPT) 12 , Alkaline Phosphatase 59, Total Bilirubin 0.4, Total Protein 6.6, Albumin 3.2 Microbiology Microbiology 05/18/17 Urine Culture - Final, Complete Fatemeh Johnson May 21, 2017 09:33
[2017-05-21] MEDS: ACETAMINOPHEN TAB 650MG DOSE (2X325MG) PO PRN (09:40)
[2017-05-21 09:44] VITALS: BP 140/82
--- NOTE | 2017-05-21 10:37 | REP ---
REASON: Leukocytosis and low grade pyrexia. COMPARISON: 04/26/2017 which is the latest prior. Note is again made of previous median sternotomy status quo. The heart is not enlarged. The lung mcmullen are essentially unchanged remaining clear. The pleural angles are again seen to be sharp. The osseous structures are stable and intact. IMPRESSION: No evidence of acute cardiopulmonary disease. Signed by Hamzah Sidhu DO 05/21/2017 10:58 A
--- NOTE | 2017-05-21 13:16 | MHIPN ---
DATE OF SERVICE: ____05/19/17 72-year-old male who was admitted on 05/16/2017 for poison suicidal ideation, is not given his pain medications by his brother. SUBJECTIVE: Patient reports feeling better, has multiple complaints against his brother, he says his brother is taking advantage of him, has mistreated and neglected him. He states that he wants to go back to [place], denies being an addict but has been misusing pain medications. Patient denies suicidal or homicidal ideation, denies auditory or visual hallucinations and denies thought delusions. OBJECTIVE: Patient is a 72-year-old male who presents to the office wearing hospital clothes and a walker. He looks agitated, a little bit short of breath. He was cooperative with interview, with good eye contact. His speech is coherent, his thought process seems to be intact and his though content is questionable. He denies current homicidal or suicidal ideation, denies thought delusions and denies auditory and visual hallucinations. His memory seems to be intact, his attention and concentration are fair, he is oriented times three, his fund of knowledge is fair. His judgment and insight are poor and his impulse control is fair. ASSESSMENT: 1. Rule out delusional disorder (one). 2. Antisocial personality traits to be ruled out. Patient seems to be lying or he is delusional. He reports having had a great life, having been very successful professionally and financially, he thinks that his brother is really bad, but there is something in his attitude and his demeanor that makes me think of him lying or maybe he is just delusional. There is something that does not add up in all this story and I think it should be questioned. MANAGEMENT PLAN: Will continue on the same medications and as this has been planned by primary provider it is important to have a meeting with his brother and it would be very good if this meeting could be helped with the three brothers to clarify many things. Patient is not currently suicidal, not homicidal and not in danger to self or others. Will followup. EDWARD
[2017-05-21] MEDS: IPRATROPIUM 0.5MG/ALBUTEROL 2.5MG INH SOL UD 3ML (DUONEB)(J7620) NEB SCH ×2 (13:31→20:39)
--- NOTE | 2017-05-21 14:00 | MHIPNPDOC ---
[facility] Progress Note Progress Note DATE OF SERVICE: 05/21/17 HISTORY: Patient is 72-year-old male who was admitted on 05/16/2017 for poison suicidal ideation. Final Inspector Truck Trailer met with patient today in lieu of regular provider to assess treatment progress on inpatient unit patient was observed to be lying in bed, was easily engaged. Patient indicates prior to hospitalization he was living in [place], is unable to tell senior medical writer how he got from [place] to [facility], indicates he does not feel he is able to manage himself or his medications at home independently. Patient denies that he has history of addiction, denies symptoms of craving or withdrawal. Patient rates current anxiety level of 7/10, depression 7/10, denies suicidal and homicidal ideation, denies auditory and visual hallucinations, denies urge to engage in self- injurious behavior. Patient states he has been sleeping well, denies challenges with concentration and focus, states energy level remains low but is improving. Patient is eating and voiding, rates current pain level to right foot as 4/10, indicates pain is being addressed by nursing, presents with no signs of acute distress at time of interaction. VITAL SIGNS: See below. Elevated date of entry, nursing made aware who indicated PA has been made aware. NEW TEST RESULTS: Results of 05/21/17 chest x-ray available in EMR. 05/21/17 labs with multiple anomalies, patient has had follow-up assessment with PA, refer to EMR for details 05/17/17 Pain management consult completed 05/17/17 EKG abnormal, refer to EMR for details PT evaluation completed - patient given walker to use while inpatient. script provided so he can obtain a walker after discharge. CURRENT MEDICATIONS: See below. MENTAL STATUS EXAMINATION: Patient is a 72-year old male, who is wearing hospital gown and attire, disheveled in appearance, exhibits contracted feet, resting in bed, especially her eye contact, pleasant and cooperative, easily engaged, ambulates with unsteady gait with front wheel walker, appears stated age. Speech: Of normal rate, rhythm, volume, spontaneous, coherent Language skills within normal limits Thought processes including: Linear, appear logical, goal-directed Thought content: Appears rational and logical, no tangentiality or paranoia noted Abstract reasoning, and computation: Appear adequate Description of associations: Intact Description of abnormal or psychotic thoughts: Patient denies suicidal or homicidal ideation, denies auditory or visual hallucinations, does not appear to be responding to internal stimuli, does not endorse bizarre or paranoid ideation, denies preoccupation with violence or obsessions. Patient remains distrustful of brother, does not believe brother has his best interest in mind. He fears his brother is plotting to take advantage of him. Judgment: poor. Insight: poor. Orientation: A and O 3 Recent and remote memory: Appears intact Attention span and concentration: Within normal limits Fund of knowledge: Adequate Mood: "I'm feeling a little better today." Patient presents as moderately anxious and depressed, no mood lability noted. Affect: Blunted, brightens 2, congruent with mood DIAGNOSES: Adjustment disorder with mixed anxiety and depressed mood, opiate use disorder, alcohol use disorder in remission. Rule out delusional disorder, rule out personality disorder ASSESSMENT: Patient appears to be adjusting to unit slowly, remains isolative to room but is engageable, pleasant during interaction, is generally cooperative with staff and has presented with no behavior management problems. Patient states current medication regimen is working well and he denies medication side effects, denies experiencing sleep challenges, denies nightmares. Patient makes no mention today of belief that his brother is abusive. Patient is eating and voiding without issue, is being monitored on I and O. patient denies suicidal and homicidal ideation and verbalizes awareness of how to access supportive services on the unit if needed. Patient states today when prepared for discharge she would like to be discharged to an assisted living environment, states he does not feel he is able to manage himself or his medications independently at home. stars coordinator continues to attempt access collateral information pertaining to patient's background and treatment history in effort to facilitate safe discharge planning. MANAGEMENT PLAN: Continue current medication regimen as prescribed by primary provider Maintain safety precautions Patient to remain on I and O Patient to attend groups and participate in unit programming as able to develop coping strategies Engage patient in discharge planning process and arrange meeting with support system to ensure safe discharge planning when appropriate Patient to follow up with PCM upon discharge TIME SPENT: 25 minutes. Vital Signs Vital Signs Date Time Temp Pulse Resp B/P (MAP) Pulse Ox O2 Delivery O2 Flow Rate FiO2 05/21/17 13:05 149/89 05/21/17 09:44 84 05/21/17 06:42 97.4 18 05/20/17 18:21 16 05/17/17 06:57 Room Air Laboratory Data 24H Labs Laboratory Tests 2 05/21/17 06:04: White Blood Count 14.1H, Red Blood Count 3.87L, Hemoglobin 11.5L, Hematocrit 35.2L, Mean Corpuscular Volume 90.9, Mean Corpuscular Hemoglobin 29.7, Mean Corpuscular Hemoglobin Concent 32.6, Red Cell Distribution Width 15.1H, Platelet Count 218, Neutrophils (%) (Auto) 78.0H, Lymphocytes (%) (Auto) 15.0L, Monocytes (%) (Auto) 3.9, Eosinophils (%) (Auto) 1.4, Basophils (%) (Auto) 0.5, Neutrophils # (Auto) 11.0H, Lymphocytes # (Auto) 2.3, Monocytes # (Auto) 0.6, Eosinophils # (Auto) 0.2, Basophils # (Auto) 0.1, Large Unclassified Cells % 1.2 , Large Unclassified Cells # 0.2, Anion Gap 12, Glomerular Filtration Rate 53.6 , Blood Urea Nitrogen 25H, Creatinine 1.38H, Sodium Level 146H, Potassium Level 3.7, Chloride Level 115H, Carbon Dioxide Level 19L, Calcium Level 8.5L, Aspartate Amino Transf (AST/SGOT) 13L, Alanine Aminotransferase (ALT/SGPT) 12, Alkaline Phosphatase 59, Total Bilirubin 0.4, Total Protein 6.6, Albumin 3.2, Albumin/Globulin Ratio 0.94L, Amylase Level 57, Lipase 291 05/21/17 12:12: Urine Appearance CLEAR, Urine Color YELLOW, Urine pH 5.0, Urine Specific [place] 1.013, Urine Protein NEGATIVE, Urine Glucose (UA) NEGATIVE, Urine Ketones NEGATIVE, Urine Urobilinogen 0.2, Urine Bilirubin NEGATIVE, Urine Leukocyte Esterase TRACEH, Urine Blood NEGATIVE, Urine Nitrite NEGATIVE, Urine WBC (Auto) 5H, Urine RBC (Auto) 1, Urine Hyaline Casts (Auto) 0, Urine Bacteria (Auto) NEGATIVE, Urine Squamous Epithelial Cells 0, Urine Mucus (Auto) SMALL, Urine Sperm (Auto) CBC/BMP Laboratory Tests 05/21/17 06:04 Red Blood Count 3.87 L, Mean Corpuscular Volume 90.9, Mean Corpuscular Hemoglobin 29.7, Mean Corpuscular Hemoglobin Concent 32.6, Red Cell Distribution Width 15.1 H, Neutrophils (%) (Auto) 78.0 H, Lymphocytes (%) (Auto ) 15.0 L, Monocytes (%) (Auto) 3.9, Eosinophils (%) (Auto) 1.4, Basophils (%) ( Auto) 0.5, Neutrophils # (Auto) 11.0 H, Lymphocytes # (Auto) 2.3, Monocytes # ( Auto) 0.6, Eosinophils # (Auto) 0.2, Basophils # (Auto) 0.1, Calcium Level 8.5 L , Aspartate Amino Transf (AST/SGOT) 13 L, Alanine Aminotransferase (ALT/SGPT) 12 , Alkaline Phosphatase 59, Total Bilirubin 0.4, Total Protein 6.6, Albumin 3.2 Current Medications Current Medications Acetaminophen (Tylenol Tab) 650 mg Q6HP PRN PO HEADACHE or DISCOMFORT Last administered on 05/21/17 09:40; Start 05/16/17 at 20:15; Stop 06/15/17 at 20:14 Al Hydrox/Mg Hydrox/Simethicone (Mylanta) 30 ml Q4HP PRN PO HEARTBURN/ INDIGESTION; Start 05/16/17 at 20:15; Stop 06/15/17 at 20:14 Albuterol Sulfate (Proventil, Ventolin Hfa) 2 puff Q4HP PRN INH SHORTNESS OF BREATH; Start 05/16/17 at 23:30; Stop 06/15/17 at 23:29 Albuterol/ Ipratropium (Duoneb (Ipr 0.5mg/Alb 2.5mg)) 3 ml RQ6H NEB Last administered on 05/21/17 13:31; Start 05/21/17 at 14:00; Stop 05/23/17 at 14:00 Clopidogrel Bisulfate (PLAVix) 75 mg DAILY PO Last administered on 05/21/17 09 :27; Start 05/17/17 at 09:00; Stop 06/16/17 at 08:59 Fenofibrate (Tricor) 145 mg DAILY PO Last administered on 05/21/17 09:27; Start 05/17/17 at 09:00; Stop 06/16/17 at 08:59 Home Med (Med Rec Complete!) ASDIRECTED XX ; Start 05/16/17 at 20:15; Stop at 20:15; Status DC Hydroxyzine HCl (Atarax) 25 mg Q6HP PRN PO ANXIETY Last administered on 20:09; Start 05/16/17 at 20:15; Stop 06/15/17 at 20:14 Isosorbide Dinitrate (Isordil) 10 mg QID PO ; Start 05/17/17 at 09:00; Stop at 09:00; Status DC Isosorbide Dinitrate (Isordil) 10 mg QID PO Last administered on 05/21/17 13: 05; Start 05/17/17 at 09:00; Stop 06/16/17 at 08:59 Lidocaine (Lidoderm Patch) 2 patch DAILY TD Last administered on 05/21/17 09: 27; Start 05/17/17 at 09:00; Stop 06/16/17 at 08:59 Losartan Potassium (Cozaar) 100 mg DAILY PO ; Start 05/17/17 at 09:00; Stop at 09:00; Status DC Losartan Potassium (Cozaar) 100 mg DAILY PO Last administered on 05/21/17 09: 27; Start 05/17/17 at 09:00; Stop 06/16/17 at 08:59 Magnesium Hydroxide (Milk Of Magnesia) 30 ml DAILYPRN PRN PO CONSTIPATION; Start 05/16/17 at 20:15; Stop 06/15/17 at 20:14 Mirtazapine (Remeron) 15 mg QHS PO Last administered on 05/20/17 20:06; Start 05/16/17 at 21:00; Stop 06/15/17 at 20:59 Nicotine (Nicoderm Cq 21mg) 1 patch DAILY TD Last administered on 05/21/17 09: 25; Start 05/17/17 at 09:00; Stop 06/16/17 at 08:59 Nifedipine (Procardia Xl) 90 mg DAILY PO Last administered on 05/21/17 09:26; Start 05/17/17 at 09:00; Stop 06/16/17 at 08:59 Non-Formulary Medication ( See Comment Field Below ) REMOVE LIDODERM PATCH DAILY@21 XX Last administered on 05/20/17 20:08; Start 05/17/17 at 21:00; Stop 06/16/17 at 20:59 Nystatin (Mycostatin Powder, Nystop) 1 dose BID TOP Last administered on t 09:28; Start 05/17/17 at 09:00; Stop 06/16/17 at 08:59 Trazodone HCl (Desyrel) 50 mg QHSP PRN PO INSOMNIA; Start 05/16/17 at 20:15; Stop 05/17/17 at 03:26; Status DC Allergies Coded Allergies: Codeine (Verified Allergy, Unknown, 05/16/17) Iodine (Verified Allergy, Unknown, 05/16/17) Morphine (Verified Allergy, Unknown, 05/16/17) Shellfish Allergy (Verified Allergy, Unknown, 05/16/17) Brenda Palomo May 21, 2017 14:00
[2017-05-21 18:00] VITALS: BP 120/69
--- NOTE | 2017-05-21 19:30 | ECGEPIP ---
Stationary ECG Study [facility] Test Date: 2017-05-21 Pat Name: PASCUAL GOINS Department: Room: [place] [address] Gender: M Sample Grinder: : 1945 Requested By: Fatemeh Johnson Order Number: [id number] Reading MD: Nate Zhou Measurements Intervals [place] Rate: 85 P: -45 ID: [id number] QRS: -46 QRSD: 136 T: 28 QT: 386 QTc: 459 Interpretive Statements Normal sinus rhythm with isolated PAC Left anterior hemiblock and right bundle branch block Primary lateral ST/T-wave abnormalities More prominent than 05/17/17 Clinical correlation advised. Rule out acute myocardial ischemia Electronically Signed On 05-21-2017 19:30:43 EDT by Nate Zhou
[2017-05-21] MEDS: hydrOXYzine 25 MG TAB PO PRN (20:36)
[2017-05-21] MEDS: MIRTAZAPINE 15 MG TAB PO SCH (20:37)
[2017-05-21] MEDS: **NOTE PATIENT COMMENT** MISC XX SCH (20:38)
[2017-05-22] MEDS: IPRATROPIUM 0.5MG/ALBUTEROL 2.5MG INH SOL UD 3ML (DUONEB)(J7620) NEB SCH ×4 (01:28→20:27)
[2017-05-22 06:00] VITALS: BP 140/92
--- NOTE | 2017-05-22 07:51 | MHIPN ---
DATE: 05/20/2017 72-year-old male known for: 1. Rule out delirium. 2. Histrionic personality. 3. Opiate dependence. 4. Adjustment disorder with anxious symptoms. 5. Alcohol abuse, in remission. SUBJECTIVE: Patient reports that he is feeling better. He feels hopeful because he has been offered by special education case manager that they can assist him with his housing problems. APS will assist him in picking up his clothes from his brother's home and going back to [place]. He reports good sleep and good appetite. 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 He believes that a lot of patients will benefit from his invention, but he will also make money, the money that he did not make years ago when he did not want to sell his invention to other companies. Denies suicidal ideation. OBJECTIVE: Patient is alert, oriented times three, cooperative, pleasant. His speech is spontaneous and fluid. His thought process is goal directed. His thought content is [id number]. Abstract reasoning and computation is good. Description of associations are good. Description of abnormal or psychotic thoughts. Patient denies suicidal or homicidal ideation, is anxious about his future, is afraid of going back to his brother's home. Patient seems delusional. Judgment and insight are poor. He is oriented times three. His recent and remote memory are intact. His attention span and concentration are very good. His fund of knowledge is good. Mood and affect are anxious. ASSESSMENT: Patient is not a danger to self or others. He is not suicidal or homicidal. He seems to be delusional but is not dangerous or aggressive. Patient could certainly live on his own, without having to return to his brother's home. He could go back to [place] if he is able to go to an assisted shelter, which is what he wants, and receive all his medications and medical services. Patient currently is stable. He is not dangerous to self or others. Will followup. EDWARD
[2017-05-22 08:34] LABS: MEAN CORPUSCULAR HEMOGLOBIN 29.8 pg (27.0-33.0); MEAN CORPUSCULAR HGB CONC 32.5 g/dl (32.0-36.5); MEAN CORPUSCULAR VOLUME 91.6 fl (80.0-96.0); RED CELL DISTRIBUTION WIDTH 14.8 % (11.5-14.5); WHITE BLOOD COUNT 13.3 K/mm3 (4.0-10.0)
[2017-05-22 08:48] LABS: ALBUMIN 3.2 GM/DL (3.2-5.2); ALBUMIN/GLOBULIN RATIO 0.89 (1.00-1.93); BILIRUBIN,TOTAL 0.5 MG/DL (0.2-1.0); CALCIUM LEVEL 8.4 MG/DL (8.8-10.2); CREATININE FOR GFR 1.35 MG/DL (0.70-1.30); POTASSIUM SERUM 3.9 MEQ/L (3.5-5.1); TOTAL PROTEIN 6.8 GM/DL (6.4-8.2)
[2017-05-22] MEDS: ACETAMINOPHEN TAB 650MG DOSE (2X325MG) PO PRN ×2 (09:03→20:36)
[2017-05-22] MEDS: LOSARTAN 50 MG TAB PO SCH (09:03)
[2017-05-22] MEDS: CLOPIDOGREL 75 MG TAB PO SCH (09:03)
[2017-05-22] MEDS: NIFEdipine 30 MG XL TAB PO SCH (09:03)
[2017-05-22] MEDS: LIDOCAINE 5% (LIDODERM) PATCH TD SCH (09:04)
[2017-05-22] MEDS: ISOSORBIDE DIN (ISORDIL) 10 MG TAB PO SCH ×4 (09:04→20:27)
[2017-05-22] MEDS: FENOFIBRATE 145 MG TAB (TRICOR) PO SCH (09:04)
[2017-05-22] MEDS: NICOTINE 21MG/24HR 1 EA TRANSDERMAL TD SCH (09:04)
[2017-05-22] MEDS: NYSTATIN 100,000 UNITS/GM TOPICAL PWD 15 GM TOP SCH ×2 (09:04→20:25)
--- NOTE | 2017-05-22 11:04 | IPNPDOC ---
Date Seen The patient was seen on 05/22/17. Progress Note HPI: 72yoM admitted to [facility] for unspecified depressive disorder/opiate abuse disorder, following up with patient today regarding poor po intake. The patient was most recently admitted to [facility] from 04/24/17- related to metabolic encephalopathy felt related to overdose of opiates, gabapentin, baclofen, Lyrica, and Ambien. At that time the patient reported he was using oxycodone. At discharge the patient was advised to discontinue opiates , gabapentin, baclofen, Lyrica, and Ambien. Today the patient reports his pain is controlled with use of Lidoderm patch. He is aware to use Tylenol if needed. Ambulation has improved with use of rolling walker. He denies any falls. Outpatient physical therapy was recommended as per PT lesal. His feet continue to bother him but is better if he wears shoes. Patient states he has been eating and drinking better since yesterday. Weight is decreased from admission. Pt states this is because of his anxiety and depression. Denies any fevers, chills, MASON, CP, SOB, cough, palpitations, abdominal pain, N/V /D or changes in bowel or bladder habits. PMHx: History of polio as a child Unsteady gait. Patient reports using a cane at home. Chronic back pain Chronic thoracic pain Chronic foot pain Chronic pain COPD BPH Hyperlipidemia CAD/CABG 3 Hiatal hernia Hypertension PSHX: History of bilateral foot surgery Lumbar spine surgery CABG 3 PE: GEN: 72 yo M, appears stated age. Well-nourished, well developed. No acute distress. Alert and oriented x 3. Pleasant, interactive. HEENT: Normocephalic, atraumatic. Pupils are equal, round, and reactive to light. Extraocular movements are intact. No nystagmus appreciated. Sclera are nonicteric. Conjunctiva without injection. Nose midline. Moist mucous membranes. Pharynx pink and moist. Neck supple, trachea midline. No lymphadenopathy or thyromegaly appreciated. CHEST: Regular rate and rhythm, +S1, +S2 LUNGS: Clear to auscultation bilaterally. No wheezes, rales, or rhonchi. Breathing appears symmetric and easy. Patient is speaking in full sentences. No accessory muscle use. ABD: Round, soft, non-tender, non-distended. +Bowel sounds throughout. No rebound or guarding. No costovertebral angle tenderness. EXT: No lower extremity edema appreciated. Chronic weakness in lower extremities related to history of polio. Contractures are noted of the feet, healed surgical scars bilaterally. SKIN: [place], dry, warm. No rashes. NEURO: Alert and oriented x 3. Cranial nerves III-XII are intact. Gait is unsteady. Patient is currently using wheeled walker. EK05/17/17 SINUS RHYTHM WITH FREQUENT SUPRAVENTRICULAR PREMATURE COMPLEXES RIGHT BUNDLE BRANCH BLOCK LEFT ANTERIOR FASCICULAR BLOCK Similar to tracing done 05-16-17. EKG 05/21/17 Normal sinus rhythm with isolated PAC Left anterior hemiblock and right bundle branch block Primary lateral ST/T-wave abnormalities More prominent than 05/17/17 Clinical correlation advised. Rule out acute myocardial ischemia Toxicology. Opiates noted to be negative. CXR 05/21/17 No evidence of acute cardiopulmonary disease. A&P: 72yoM admitted to [facility] for unspecified depressive disorder/opiate abuse disorder, being medically examined today. The patient was most recently admitted to [facility] from 04/24/17-04/29/17 related to metabolic encephalopathy felt related to overdose of opiates, gabapentin, baclofen, Lyrica , and Ambien. At that time the patient reported he was using oxycodone. At discharge the patient was advised to discontinue opiates, gabapentin, baclofen, Lyrica, and Ambien. 1. Psych. Plan per Psychiatry. EKG on file. 2. Nicotine dependence. Patch available. 3. CAD/CABG. Continue Plavix 75 mg daily, isosorbide 10 mg 4 times a day. Patient reports no cardiac symptoms at this time. CIP/Troponin 8 Am today unremarkable. 4. Follow up. No Primary Care Provider. Will attempt to establish PCP on discharge. 5. History of metabolic encephalopathy felt related to overdose of opiates, gabapentin, baclofen, Lyrica, and Ambien. Patient discharged from [facility] 04/29/17. Advised to discontinue using opiates, gabapentin, baclofen, Lyrica, and Ambien. 6. Hypokalemia. Oral supplement 1 05/18. Magnesium level WNL. 7. Elevated serum creatinine. 1.35. Baseline appears to be 1.1-1.2. Recheck CMP in a.m. 8. Hypertension. Continue losartan 100 mg daily, nifedipine 90 mg daily. 9. Hyperlipidemia. Continue fenofibrate 145 mg by mouth daily. 10. COPD. Continue albuterol 2 puffs every 4 hours as needed. 11. BPH. Continue alfuzosin 10 mg by mouth daily. 12. History of polio as child with chronic lower extremity weakness. 13. Chronic unsteady gait. Fall precautions requested. Ambulation with assistance. Patient is using to will walker as per PT recommendations. Request outpatient PT as recommended by evaluation. 14. Chronic pain. As noted above at discharge 04/29/17 patient was discontinued from opiates, gabapentin, baclofen, Lyrica, and Ambien. ISTOP accessed today Ref # [id number] yielded no results with extended state search. Patient is reporting pain in his thoracic spine, lumbar spine lower extremities and bilateral feet. Pain management opinion appreciated. Apply Lidoderm patch daily to thoracic spine and lumbar spine. Continue Tylenol as needed. Monitor. 15. Anemia. Hemoglobin is noted to be 11.5. Baseline appears to be 11-12. Iron studies, vitamin B12, folate completed. Monitor. 16. Poor by mouth intake. Pt states that this is related to his anxiety and depression. Encourage oral intake. Daily weight. Intake output. Ensure supplements, but Pt states he does not want to drink ensure. Encourage OOB. Recheck CMP and CBC in a.m. Nutrition consult completed. 17. Leukocytosis. Patient is asymptomatic. Currently afebrile. Tmax 99.5 past 24 hrs. Trending downward. Recheck CBC in a.m. Urine culture neg 05/18/17. UC 05/21 neg. CXR 05/21 NAD. Continue I/S. Duonebs x 48 hrs. Encourage OOB. 18. Staff member Macey HUNTER present during exam. VS, I&O, 24H, Fishbone Vital Signs/I&O Vital Signs Date Time Temp Pulse Resp B/P (MAP) Pulse Ox O2 Delivery O2 Flow Rate FiO2 05/22/17 09:04 175/86 05/22/17 06:00 99.2 96 18 Room Air 05/21/17 06:42 18 Laboratory Data 24H LABS Laboratory Tests 2 05/21/17 12:12: Urine Appearance CLEAR, Urine Color YELLOW, Urine pH 5.0, Urine Specific [place] 1.013, Urine Protein NEGATIVE, Urine Glucose (UA) NEGATIVE, Urine Ketones NEGATIVE, Urine Urobilinogen 0.2, Urine Bilirubin NEGATIVE, Urine Leukocyte Esterase TRACEH, Urine Blood NEGATIVE, Urine Nitrite NEGATIVE, Urine WBC (Auto) 5H, Urine RBC (Auto) 1, Urine Hyaline Casts (Auto) 0, Urine Bacteria (Auto) NEGATIVE, Urine Squamous Epithelial Cells 0, Urine Mucus (Auto) SMALL, Urine Sperm (Auto) 05/22/17 08:07: Anion Gap 12, Glomerular Filtration Rate 55.0, Blood Urea Nitrogen 27H, Creatinine 1.35H, Sodium Level 145, Potassium Level 3.9, Chloride Level 114H, Carbon Dioxide Level 19L, Calcium Level 8.4L, Aspartate Amino Transf (AST/SGOT) 12L, Alanine Aminotransferase (ALT/SGPT) 12, Alkaline Phosphatase 53, Total Bilirubin 0.5, Total Protein 6.8, Albumin 3.2, Total Creatine Kinase 63, Creatine Kinase MB 1.0, Creatine Kinase MB Relative Index 1.58, Troponin I 0.02 , Albumin/Globulin Ratio 0.89L CBC/BMP Laboratory Tests 05/22/17 08:07 Red Blood Count 3.84 L, Mean Corpuscular Volume 91.6, Mean Corpuscular Hemoglobin 29.8, Mean Corpuscular Hemoglobin Concent 32.5, Red Cell Distribution Width 14.8 H, Calcium Level 8.4 L, Aspartate Amino Transf (AST/SGOT ) 12 L, Alanine Aminotransferase (ALT/SGPT) 12, Alkaline Phosphatase 53, Total Bilirubin 0.5, Total Protein 6.8, Albumin 3.2 Microbiology Microbiology 05/21/17 Urine Culture - Final, Complete 05/18/17 Urine Culture - Final, Complete Fatemeh Johnson May 22, 2017 11:04
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
[2017-05-22] MEDS: MAALOX 30 ML SUSP *UDC PO PRN (16:08)
[2017-05-22 18:00] VITALS: BP 138/73
[2017-05-22] MEDS: **NOTE PATIENT COMMENT** MISC XX SCH ×2 (20:27→20:35)
[2017-05-22] MEDS ORDERED: traZODone 50 MG TAB PO SCH (21:00)
[2017-05-23] MEDS: IPRATROPIUM 0.5MG/ALBUTEROL 2.5MG INH SOL UD 3ML (DUONEB)(J7620) NEB SCH ×4 (02:00→14:44)
[2017-05-23 07:04] VITALS: BP 156/78
[2017-05-23 07:36] LABS: MEAN CORPUSCULAR HEMOGLOBIN 30.3 pg (27.0-33.0); MEAN CORPUSCULAR HGB CONC 33.2 g/dl (32.0-36.5); MEAN CORPUSCULAR VOLUME 91.4 fl (80.0-96.0); RED CELL DISTRIBUTION WIDTH 14.9 % (11.5-14.5); WHITE BLOOD COUNT 11.3 K/mm3 (4.0-10.0)
[2017-05-23 08:08] LABS: ALBUMIN/GLOBULIN RATIO 0.83 (1.00-1.93); BILIRUBIN,TOTAL 0.4 MG/DL (0.2-1.0); CALCIUM LEVEL 8.1 MG/DL (8.8-10.2); CREATININE FOR GFR 1.27 MG/DL (0.70-1.30); POTASSIUM SERUM 3.5 MEQ/L (3.5-5.1); TOTAL PROTEIN 6.6 GM/DL (6.4-8.2)
[2017-05-23] MEDS: NIFEdipine 30 MG XL TAB PO SCH (09:00)
[2017-05-23] MEDS: ISOSORBIDE DIN (ISORDIL) 10 MG TAB PO SCH ×4 (09:00→21:18)
[2017-05-23] MEDS: NYSTATIN 100,000 UNITS/GM TOPICAL PWD 15 GM TOP SCH ×2 (09:00→21:41)
[2017-05-23] MEDS: CLOPIDOGREL 75 MG TAB PO SCH ×2 (09:00→13:55)
[2017-05-23] MEDS: LIDOCAINE 5% (LIDODERM) PATCH TD SCH (09:00)
[2017-05-23] MEDS: NICOTINE 21MG/24HR 1 EA TRANSDERMAL TD SCH ×2 (09:00→13:56)
[2017-05-23] MEDS: LOSARTAN 50 MG TAB PO SCH (09:00)
[2017-05-23] MEDS: FENOFIBRATE 145 MG TAB (TRICOR) PO SCH ×2 (09:00→13:55)
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
[2017-05-23 18:00] VITALS: BP 138/80
[2017-05-23] MEDS: **NOTE PATIENT COMMENT** MISC XX SCH (21:00)
[2017-05-23] MEDS ORDERED: traZODone 100 MG TAB PO PRN (21:00)
[2017-05-23] MEDS: SERTRALINE HCL 50 MG TAB PO SCH (21:17)
[2017-05-23] MEDS: ACETAMINOPHEN TAB 650MG DOSE (2X325MG) PO PRN (21:18)
[2017-05-24 06:27] VITALS: BP 150/96
[2017-05-24] MEDS: LIDOCAINE 5% (LIDODERM) PATCH TD SCH (09:00)
[2017-05-24] MEDS: NYSTATIN 100,000 UNITS/GM TOPICAL PWD 15 GM TOP SCH ×2 (09:00→21:00)
[2017-05-24] MEDS: ISOSORBIDE DIN (ISORDIL) 10 MG TAB PO SCH ×4 (09:00→22:32)
[2017-05-24] MEDS: FENOFIBRATE 145 MG TAB (TRICOR) PO SCH (09:00)
[2017-05-24] MEDS: CLOPIDOGREL 75 MG TAB PO SCH (09:00)
[2017-05-24] MEDS: LOSARTAN 50 MG TAB PO SCH (09:00)
[2017-05-24] MEDS: NIFEdipine 30 MG XL TAB PO SCH (09:00)
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
[2017-05-24 18:00] VITALS: BP 180/89
[2017-05-24] MEDS: MAALOX 30 ML SUSP *UDC PO PRN (18:02)
[2017-05-24] MEDS: hydrOXYzine 25 MG TAB PO PRN (18:05)
[2017-05-24] MEDS: **NOTE PATIENT COMMENT** MISC XX SCH (21:00)
[2017-05-24] MEDS: SERTRALINE HCL 50 MG TAB PO SCH (22:31)
[2017-05-24] MEDS: risperiDONE 0.25 MG TAB PO SCH (22:31)
[2017-05-25 06:30] VITALS: BP 118/75
[2017-05-25 08:50] LABS: MEAN CORPUSCULAR HEMOGLOBIN 29.7 pg (27.0-33.0); MEAN CORPUSCULAR HGB CONC 33.3 g/dl (32.0-36.5); MEAN CORPUSCULAR VOLUME 89.1 fl (80.0-96.0); RED CELL DISTRIBUTION WIDTH 14.7 % (11.5-14.5); WHITE BLOOD COUNT 8.9 K/mm3 (4.0-10.0)
[2017-05-25] MEDS: LIDOCAINE 5% (LIDODERM) PATCH TD SCH (09:00)
[2017-05-25] MEDS: FENOFIBRATE 145 MG TAB (TRICOR) PO SCH (09:03)
[2017-05-25] MEDS: LOSARTAN 50 MG TAB PO SCH (09:03)
[2017-05-25] MEDS: NYSTATIN 100,000 UNITS/GM TOPICAL PWD 15 GM TOP SCH ×2 (09:03→21:36)
[2017-05-25] MEDS: NICOTINE 21MG/24HR 1 EA TRANSDERMAL TD SCH (09:03)
[2017-05-25] MEDS: ISOSORBIDE DIN (ISORDIL) 10 MG TAB PO SCH ×4 (09:03→21:35)
[2017-05-25] MEDS: CLOPIDOGREL 75 MG TAB PO SCH (09:03)
[2017-05-25] MEDS: NIFEdipine 30 MG XL TAB PO SCH (09:04)
[2017-05-25 09:14] LABS: ALBUMIN 3.2 GM/DL (3.2-5.2); ALBUMIN/GLOBULIN RATIO 0.84 (1.00-1.93); BILIRUBIN,TOTAL 0.4 MG/DL (0.2-1.0); CALCIUM LEVEL 8.7 MG/DL (8.8-10.2); CREATININE FOR GFR 1.3 MG/DL (0.70-1.30); GLOMERULAR FILTRATION RATE 57.4 (>42)
--- NOTE | 2017-05-25 14:00 | MHIPNPDOC ---
[facility] Progress Note Progress Note DATE OF SERVICE: 05/25/17 HISTORY: day 10 of admission,pt was admitted after getting angry at this brother who was controlling his pain medication. Pt threatened suicide. VITAL SIGNS: See below. NEW TEST RESULTS: pt declined labs yesterday. resume writer order head CT today. Head CT results 05/25/17 CT HEAD WITHOUT CONTRAST: HISTORY: Rule out schizophrenia. COMPARISON: 04/24/2017 An area of decreased attenuation is present in the posterior right temporal lobe. There is dilatation of the overlying cortical sulci. This represents an old infarction. An area of decreased attenuation is present in the right basal ganglia. This represents an old lacunar infarction. Areas of decreased attenuation are present in the periventricular and subcortical white matter. This represents small vessel ischemic disease. There is no intraparenchymal hemorrhage, mass or midline shift. The ventricular system and cortical sulci as well as subarachnoid space in the posterior fossa are dilated consistent with moderate volume loss. There is no extracerebral collection. Mucosal thickening is present in the ethmoid, frontal, and sphenoid sinuses. IMPRESSION: 1. 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 2. Old right basal ganglia lacunar infarction. 3. Small vessel ischemic disease. 4 Moderate volume loss. Unreviewed CURRENT MEDICATIONS: See below. MENTAL STATUS EXAMINATION: Patient is a 72-year old male, who is wearing street clothes, appears adequately groomed, using walker for ambulation, pleasant. Speech: Is spontaneous. Language skills are intact. Thought processes including: linear Thought content: appropriate. Abstract reasoning, and computation: good. Description of associations: good. Description of abnormal or psychotic thoughts: pt is prone to grandiosity, extreme emotional responses, desire to be the center of attention. He has some bizarre beliefs as far as having been inhabited by an alien and interest in jet propulsion. He denies hearing voices or seeing things other's do not see. He claims he has never been serious about committing suicide. Judgment: limited. Insight: poor. Orientation: well oriented Recent and remote memory: appears intact in most areas. he makes claims to being switched by his biological family while on a train. Attention span and concentration: good, watching Television. Fund of knowledge: full. Mood: euthymic. Affect: congruent, calm. DIAGNOSES: 1. psychotic disorder unspecified 2. opiate dependency and abuse 3. alcohol dependency in remission 4. histrionic personality disorder ASSESSMENT:Pt in [facility] at 1 p.m. today. Attempted to engage him in discussion but he declined in favor of a TV program he had been watching. His immediate response was hyper-startle when resume writer leaned over to speak to him. He jumped and called out. It did not appear genuine. Said he would like to talk later. pt ate 1/2 his sandwich at lunch. Appetite remains low. Pt fully attired in street clothes and looked well put together. His walker is by his side. he took his medications today and last night. Staff is very attentive to his needs. Patient appears brighter and more cheerful today. He has smiled occasionally and has been kind when engaged in 1:1. He asked about the [place] apartment and was informed we have not hear from them today to find out if he could be added to the list but we asked them to contact us by Sunday if possible to let us know. We will keep him informed. MANAGEMENT PLAN: continue medications and close observation. encourage room restriction to prompt pt to interface with peers and milieu activities. monitor for less anxiety and improved mood, less depression. Encourage meals and po fluid intake, encourage attendance to hygiene needs. Pt needs to walk around the unit every day. Discussed pts history with PA today who suggested head CT so resume writer placed this order. Continue Fall precautions. Awaiting feedback from [facility] regarding availability of space there for patient. If nothing available will discuss [facility]. TIME SPENT: 15 minutes. Vital Signs Vital Signs Date Time Temp Pulse Resp B/P (MAP) Pulse Ox O2 Delivery O2 Flow Rate FiO2 05/25/17 13:13 134/81 05/25/17 06:30 97.7 88 20 Room Air 05/21/17 06:42 18 Laboratory Data 24H Labs Laboratory Tests 2 05/25/17 08:10: Anion Gap 13, Glomerular Filtration Rate 57.4, Blood Urea Nitrogen 27H, Creatinine 1.30, Sodium Level 142, Potassium Level 4.0, Chloride Level 110H, Carbon Dioxide Level 19L, Calcium Level 8.7L, Aspartate Amino Transf (AST/SGOT) 19, Alanine Aminotransferase (ALT/SGPT) 14, Alkaline Phosphatase 56, Total Bilirubin 0.4, Total Protein 7.0, Albumin 3.2, Albumin/Globulin Ratio 0.84L CBC/BMP Laboratory Tests 05/25/17 08:10 Red Blood Count 3.64 L, Mean Corpuscular Volume 89.1, Mean Corpuscular Hemoglobin 29.7, Mean Corpuscular Hemoglobin Concent 33.3, Red Cell Distribution Width 14.7 H, Calcium Level 8.7 L, Aspartate Amino Transf (AST/SGOT ) 19, Alanine Aminotransferase (ALT/SGPT) 14, Alkaline Phosphatase 56, Total Bilirubin 0.4, Total Protein 7.0, Albumin 3.2 Current Medications Current Medications Acetaminophen (Tylenol Tab) 650 mg Q6HP PRN PO HEADACHE or DISCOMFORT Last administered on 05/23/17 21:18; Start 05/16/17 at 20:15; Stop 06/15/17 at 20:14 Al Hydrox/Mg Hydrox/Simethicone (Mylanta) 30 ml Q4HP PRN PO HEARTBURN/ INDIGESTION Last administered on 05/24/17 18:02; Start 05/16/17 at 20:15; Stop 06/15/17 at 20:14 Albuterol Sulfate (Proventil, Ventolin Hfa) 2 puff Q4HP PRN INH SHORTNESS OF BREATH; Start 05/16/17 at 23:30; Stop 06/15/17 at 23:29 Albuterol/ Ipratropium (Duoneb (Ipr 0.5mg/Alb 2.5mg)) 3 ml RQ6H NEB Last administered on 05/23/17 07:56; Start 05/21/17 at 14:00; Stop 05/23/17 at 14:00; Status DC Clopidogrel Bisulfate (PLAVix) 75 mg DAILY PO Last administered on 05/25/17 09: 03; Start 05/17/17 at 09:00; Stop 06/16/17 at 08:59 Fenofibrate (Tricor) 145 mg DAILY PO Last administered on 05/25/17 09:03; Start 05/17/17 at 09:00; Stop 06/16/17 at 08:59 Home Med (Med Rec Complete!) ASDIRECTED XX ; Start 05/16/17 at 20:15; Stop at 20:15; Status DC Hydroxyzine HCl (Atarax) 25 mg Q6HP PRN PO ANXIETY Last administered on 18:05; Start 05/16/17 at 20:15; Stop 06/15/17 at 20:14 Isosorbide Dinitrate (Isordil) 10 mg QID PO ; Start 05/17/17 at 09:00; Stop at 09:00; Status DC Isosorbide Dinitrate (Isordil) 10 mg QID PO Last administered on 05/25/17 13:13 ; Start 05/17/17 at 09:00; Stop 06/16/17 at 08:59 Lidocaine (Lidoderm Patch) 2 patch DAILY TD Last administered on 05/21/17 09: 27; Start 05/17/17 at 09:00; Stop 06/16/17 at 08:59 Losartan Potassium (Cozaar) 100 mg DAILY PO ; Start 05/17/17 at 09:00; Stop at 09:00; Status DC Losartan Potassium (Cozaar) 100 mg DAILY PO Last administered on 05/25/17 09:03 ; Start 05/17/17 at 09:00; Stop 06/16/17 at 08:59 Magnesium Hydroxide (Milk Of Magnesia) 30 ml DAILYPRN PRN PO CONSTIPATION; Start 05/16/17 at 20:15; Stop 06/15/17 at 20:14 Mirtazapine (Remeron) 15 mg QHS PO Last administered on 05/21/17 20:37; Start 05/16/17 at 21:00; Stop 05/22/17 at 11:15; Status DC Nicotine (Nicoderm Cq 21mg) 1 patch DAILY TD Last administered on 05/25/17 09: 03; Start 05/17/17 at 09:00; Stop 06/16/17 at 08:59 Nifedipine (Procardia Xl) 90 mg DAILY PO Last administered on 05/25/17 09:04; Start 05/17/17 at 09:00; Stop 06/16/17 at 08:59 Non-Formulary Medication ( See Comment Field Below ) REMOVE LIDODERM PATCH DAILY@21 XX Last administered on 05/21/17 20:38; Start 05/17/17 at 21:00; Stop 06/16/17 at 20:59 Nystatin (Mycostatin Powder, Nystop) 1 dose BID TOP Last administered on 09:03; Start 05/17/17 at 09:00; Stop 06/16/17 at 08:59 Risperidone (RisperDAL) 0.25 mg QHS PO Last administered on 05/24/17 22:31; Start 05/24/17 at 21:00; Stop 06/23/17 at 20:59 Sertraline HCl (Zoloft) 50 mg QHS PO Last administered on 05/24/17 22:31; Start 05/23/17 at 21:00; Stop 06/22/17 at 20:59 Trazodone HCl (Desyrel) 50 mg QHS PO Last administered on 05/22/17 20:25; Start 05/22/17 at 21:00; Stop 05/23/17 at 14:15; Status DC Trazodone HCl (Desyrel) 50 mg QHSP PRN PO INSOMNIA; Start 05/16/17 at 20:15; Stop 05/17/17 at 03:26; Status DC Trazodone HCl (Desyrel) 100 mg QHSP PRN PO INSOMNIA Last administered on 21:19; Start 05/23/17 at 21:00; Stop 05/24/17 at 14:20; Status DC Allergies Coded Allergies: Codeine (Verified Allergy, Unknown, 05/16/17) Iodine (Verified Allergy, Unknown, 05/16/17) Morphine (Verified Allergy, Unknown, 05/16/17) Shellfish Allergy (Verified Allergy, Unknown, 05/16/17) Ирина Shultz May 25, 2017 14:00
--- NOTE | 2017-05-25 15:09 | REP ---
CT HEAD WITHOUT CONTRAST: HISTORY: Rule out schizophrenia. COMPARISON: 04/24/2017 An area of decreased attenuation is present in the posterior right temporal lobe. There is dilatation of the overlying cortical sulci. This represents an old infarction. An area of decreased attenuation is present in the right basal ganglia. This represents an old lacunar infarction. Areas of decreased attenuation are present in the periventricular and subcortical white matter. This represents small vessel ischemic disease. There is no intraparenchymal hemorrhage, mass or midline shift. The ventricular system and cortical sulci as well as subarachnoid space in the posterior fossa are dilated consistent with moderate volume loss. There is no extracerebral collection. Mucosal thickening is present in the ethmoid, frontal, and sphenoid sinuses. IMPRESSION: 1. 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 2. Old right basal ganglia lacunar infarction. 3. Small vessel ischemic disease. 4 Moderate volume loss. Signed by Yousif Llamas MD 05/25/2017 04:07 P
[2017-05-25] MEDS: ACETAMINOPHEN TAB 650MG DOSE (2X325MG) PO PRN (16:55)
[2017-05-25 18:00] VITALS: BP 111/64
[2017-05-25] MEDS: **NOTE PATIENT COMMENT** MISC XX SCH (21:00)
[2017-05-25] MEDS: SERTRALINE HCL 50 MG TAB PO SCH (21:33)
[2017-05-25] MEDS: risperiDONE 0.25 MG TAB PO SCH (21:36)
[2017-05-26 06:42] VITALS: BP 137/74
[2017-05-26] MEDS: NIFEdipine 30 MG XL TAB PO SCH (08:58)
[2017-05-26] MEDS: ISOSORBIDE DIN (ISORDIL) 10 MG TAB PO SCH ×4 (08:58→20:26)
[2017-05-26] MEDS: CLOPIDOGREL 75 MG TAB PO SCH (08:58)
[2017-05-26] MEDS: FENOFIBRATE 145 MG TAB (TRICOR) PO SCH (08:58)
[2017-05-26] MEDS: LOSARTAN 50 MG TAB PO SCH (08:59)
[2017-05-26] MEDS: NICOTINE 21MG/24HR 1 EA TRANSDERMAL TD SCH (08:59)
[2017-05-26] MEDS: LIDOCAINE 5% (LIDODERM) PATCH TD SCH (09:00)
[2017-05-26] MEDS: NYSTATIN 100,000 UNITS/GM TOPICAL PWD 15 GM TOP SCH ×2 (09:01→20:24)
[2017-05-26] MEDS: ACETAMINOPHEN TAB 650MG DOSE (2X325MG) PO PRN ×2 (15:12→21:30)
[2017-05-26 18:00] VITALS: BP 133/73
[2017-05-26] MEDS: SERTRALINE HCL 50 MG TAB PO SCH (20:24)
[2017-05-26] MEDS: risperiDONE 0.25 MG TAB PO SCH (20:24)
[2017-05-26] MEDS: **NOTE PATIENT COMMENT** MISC XX SCH (20:26)
[2017-05-27 06:50] VITALS: BP 137/76
[2017-05-27] MEDS: CLOPIDOGREL 75 MG TAB PO SCH (08:35)
[2017-05-27] MEDS: ISOSORBIDE DIN (ISORDIL) 10 MG TAB PO SCH ×4 (08:36→22:04)
[2017-05-27] MEDS: NYSTATIN 100,000 UNITS/GM TOPICAL PWD 15 GM TOP SCH ×2 (08:36→22:05)
[2017-05-27] MEDS: LOSARTAN 50 MG TAB PO SCH (08:36)
[2017-05-27] MEDS: FENOFIBRATE 145 MG TAB (TRICOR) PO SCH (08:36)
[2017-05-27] MEDS: NIFEdipine 30 MG XL TAB PO SCH (08:37)
[2017-05-27] MEDS: LIDOCAINE 5% (LIDODERM) PATCH TD SCH (08:37)
[2017-05-27] MEDS: NICOTINE 21MG/24HR 1 EA TRANSDERMAL TD SCH (08:37)
[2017-05-27] MEDS: ACETAMINOPHEN TAB 650MG DOSE (2X325MG) PO PRN ×3 (08:38→22:04)
[2017-05-27 18:00] VITALS: BP 110/59
[2017-05-27] MEDS: SERTRALINE HCL 50 MG TAB PO SCH (22:04)
[2017-05-27] MEDS: risperiDONE 0.25 MG TAB PO SCH (22:04)
[2017-05-27] MEDS: **NOTE PATIENT COMMENT** MISC XX SCH (22:05)
[2017-05-28 07:08] VITALS: BP 141/77
[2017-05-28] MEDS: LIDOCAINE 5% (LIDODERM) PATCH TD SCH (09:00)
[2017-05-28] MEDS: NYSTATIN 100,000 UNITS/GM TOPICAL PWD 15 GM TOP SCH ×2 (09:08→19:59)
[2017-05-28] MEDS: NICOTINE 21MG/24HR 1 EA TRANSDERMAL TD SCH (09:08)
[2017-05-28] MEDS: FENOFIBRATE 145 MG TAB (TRICOR) PO SCH (09:09)
[2017-05-28] MEDS: CLOPIDOGREL 75 MG TAB PO SCH (09:09)
[2017-05-28] MEDS: NIFEdipine 30 MG XL TAB PO SCH (09:09)
[2017-05-28] MEDS: ISOSORBIDE DIN (ISORDIL) 10 MG TAB PO SCH ×4 (09:10→19:58)
[2017-05-28] MEDS: LOSARTAN 50 MG TAB PO SCH (09:10)
--- NOTE | 2017-05-28 13:38 | MHIPNPDOC ---
[facility] Progress Note Progress Note DATE OF SERVICE: 05/28/17 HISTORY: day 13 of admission for Suicide Ideation. VITAL SIGNS: See below. NEW TEST RESULTS: see EMR. CURRENT MEDICATIONS: See below. MENTAL STATUS EXAMINATION: Patient is a 72-year old male, who is ambulating the halls with assistance of walker, dressed in street clothes on top and hospital pj's on bottom, hair combed, pleasant. Speech: Is spontaneous Language skills are intact Thought processes including: goal directed, overestimates his ability to care for self. Thought content: grandiose, paranoid about family. Abstract reasoning, and computation: good. Description of associations: good. Description of abnormal or psychotic thoughts: no psychotic symptoms illicited, denies SI or HI, continues to state his family is against him and he wants to return to [place]. Judgment: limited Insight: very poor. Orientation: oriented to time, place, person and surroundings. Recent and remote memory: appears intact. Attention span and concentration: good. Fund of knowledge: full. Mood: euthymic. Affect: pleasant. DIAGNOSES: 1. psychotic disorder unspecified 2. opiate dependency and abuse 3. 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 he reports pain in right thigh from sitting in our chairs. He is doing quite a bit of walking. He is alert and smiling. he continues to refuse to attend groups. PO intake is adequate, he denies difficulty with constipation or diarrhea, no nausea. Taking medications as ordered and adhering to unit rules. Pt reports poor sleep since arriving here. MANAGEMENT PLAN: Will request assistance of management in getting a hospital bed for Raymond if possible. Will change room restriction to daily out of room from 9a to 11:30 p.m. He may use room from 11:30-3:30 to rest then leave room from 3:30 to 6:30. Encourage participation in unit activities, encourage meals in the lounge. encourage independent ADL's. Discharge Plan includes moving to [place] apartments on his own. He will need home health aid, MOW. PT, Walker, at time of discharge. TIME SPENT: 25 minutes. Vital Signs Vital Signs Date Time Temp Pulse Resp B/P (MAP) Pulse Ox O2 Delivery O2 Flow Rate FiO2 05/28/17 13:18 136/80 05/28/17 07:08 96.5 92 18 05/27/17 09:18 Room Air Current Medications Current Medications Acetaminophen (Tylenol Tab) 650 mg Q6HP PRN PO HEADACHE or DISCOMFORT Last administered on 05/27/17 22:04; Start 05/16/17 at 20:15; Stop 06/15/17 at 20:14 Al Hydrox/Mg Hydrox/Simethicone (Mylanta) 30 ml Q4HP PRN PO HEARTBURN/ INDIGESTION Last administered on 05/24/17 18:02; Start 05/16/17 at 20:15; Stop 06/15/17 at 20:14 Albuterol Sulfate (Proventil, Ventolin Hfa) 2 puff Q4HP PRN INH SHORTNESS OF BREATH; Start 05/16/17 at 23:30; Stop 06/15/17 at 23:29 Albuterol/ Ipratropium (Duoneb (Ipr 0.5mg/Alb 2.5mg)) 3 ml RQ6H NEB Last administered on 05/23/17 07:56; Start 05/21/17 at 14:00; Stop 05/23/17 at 14:00; Status DC Clopidogrel Bisulfate (PLAVix) 75 mg DAILY PO Last administered on 05/28/17 09: 09; Start 05/17/17 at 09:00; Stop 06/16/17 at 08:59 Fenofibrate (Tricor) 145 mg DAILY PO Last administered on 05/28/17 09:09; Start 05/17/17 at 09:00; Stop 06/16/17 at 08:59 Home Med (Med Rec Complete!) ASDIRECTED XX ; Start 05/16/17 at 20:15; Stop at 20:15; Status DC Hydroxyzine HCl (Atarax) 25 mg Q6HP PRN PO ANXIETY Last administered on 18:05; Start 05/16/17 at 20:15; Stop 06/15/17 at 20:14 Isosorbide Dinitrate (Isordil) 10 mg QID PO ; Start 05/17/17 at 09:00; Stop at 09:00; Status DC Isosorbide Dinitrate (Isordil) 10 mg QID PO Last administered on 05/28/17 13:18 ; Start 05/17/17 at 09:00; Stop 06/16/17 at 08:59 Lidocaine (Lidoderm Patch) 2 patch DAILY TD Last administered on 05/21/17 09: 27; Start 05/17/17 at 09:00; Stop 06/16/17 at 08:59 Losartan Potassium (Cozaar) 100 mg DAILY PO ; Start 05/17/17 at 09:00; Stop at 09:00; Status DC Losartan Potassium (Cozaar) 100 mg DAILY PO Last administered on 05/28/17 09:10 ; Start 05/17/17 at 09:00; Stop 06/16/17 at 08:59 Magnesium Hydroxide (Milk Of Magnesia) 30 ml DAILYPRN PRN PO CONSTIPATION; Start 05/16/17 at 20:15; Stop 06/15/17 at 20:14 Mirtazapine (Remeron) 15 mg QHS PO Last administered on 05/21/17 20:37; Start 05/16/17 at 21:00; Stop 05/22/17 at 11:15; Status DC Nicotine (Nicoderm Cq 21mg) 1 patch DAILY TD Last administered on 05/28/17 09: 08; Start 05/17/17 at 09:00; Stop 06/16/17 at 08:59 Nifedipine (Procardia Xl) 90 mg DAILY PO Last administered on 05/28/17 09:09; Start 05/17/17 at 09:00; Stop 06/16/17 at 08:59 Non-Formulary Medication ( See Comment Field Below ) REMOVE LIDODERM PATCH DAILY@21 XX Last administered on 05/27/17 22:05; Start 05/17/17 at 21:00; Stop 06/16/17 at 20:59 Nystatin (Mycostatin Powder, Nystop) 1 dose BID TOP Last administered on 09:08; Start 05/17/17 at 09:00; Stop 06/16/17 at 08:59 Risperidone (RisperDAL) 0.25 mg QHS PO Last administered on 05/27/17 22:04; Start 05/24/17 at 21:00; Stop 06/23/17 at 20:59 Sertraline HCl (Zoloft) 50 mg QHS PO Last administered on 05/27/17 22:04; Start 05/23/17 at 21:00; Stop 06/22/17 at 20:59 Trazodone HCl (Desyrel) 50 mg QHS PO Last administered on 05/22/17 20:25; Start 05/22/17 at 21:00; Stop 05/23/17 at 14:15; Status DC Trazodone HCl (Desyrel) 50 mg QHSP PRN PO INSOMNIA; Start 05/16/17 at 20:15; Stop 05/17/17 at 03:26; Status DC Trazodone HCl (Desyrel) 100 mg QHSP PRN PO INSOMNIA Last administered on 21:19; Start 05/23/17 at 21:00; Stop 05/24/17 at 14:20; Status DC Allergies Coded Allergies: Codeine (Verified Allergy, Unknown, 05/16/17) Iodine (Verified Allergy, Unknown, 05/16/17) Morphine (Verified Allergy, Unknown, 05/16/17) Shellfish Allergy (Verified Allergy, Unknown, 05/16/17) Ирина Shultz May 28, 2017 13:38
[2017-05-28] MEDS: ACETAMINOPHEN TAB 650MG DOSE (2X325MG) PO PRN (16:56)
[2017-05-28 18:30] VITALS: BP 127/65
[2017-05-28] MEDS: SERTRALINE HCL 50 MG TAB PO SCH (19:57)
[2017-05-28] MEDS: hydrOXYzine 25 MG TAB PO PRN (19:57)
[2017-05-28] MEDS: risperiDONE 0.25 MG TAB PO SCH (19:57)
[2017-05-28] MEDS: **NOTE PATIENT COMMENT** MISC XX SCH (19:59)
[2017-05-29 06:49] VITALS: BP 144/80
[2017-05-29] MEDS: LIDOCAINE 5% (LIDODERM) PATCH TD SCH (09:00)
[2017-05-29] MEDS: CLOPIDOGREL 75 MG TAB PO SCH (09:16)
[2017-05-29] MEDS: FENOFIBRATE 145 MG TAB (TRICOR) PO SCH (09:17)
[2017-05-29] MEDS: NYSTATIN 100,000 UNITS/GM TOPICAL PWD 15 GM TOP SCH ×2 (09:17→20:19)
[2017-05-29] MEDS: LOSARTAN 50 MG TAB PO SCH (09:18)
[2017-05-29] MEDS: NIFEdipine 30 MG XL TAB PO SCH (09:18)
[2017-05-29] MEDS: ISOSORBIDE DIN (ISORDIL) 10 MG TAB PO SCH ×4 (09:18→20:19)
[2017-05-29] MEDS: NICOTINE 21MG/24HR 1 EA TRANSDERMAL TD SCH (09:19)
[2017-05-29] MEDS: ACETAMINOPHEN TAB 650MG DOSE (2X325MG) PO PRN ×2 (09:22→20:30)
--- NOTE | 2017-05-29 13:55 | MHIPNPDOC ---
[facility] Progress Note Progress Note DATE OF SERVICE: 05/29/17 HISTORY: day 14 of admission for SI related to lack of pain meds. VITAL SIGNS: See below. NEW TEST RESULTS: na CURRENT MEDICATIONS: See below. MENTAL STATUS EXAMINATION: Patient is a 72-year old male, who is reclining in bed with leg slightly elevated, clean shaven, hair combed, pleasant. Speech: Is spontaneous, over-productive Language skills are good Thought processes including: tangential, circumstantial, logical Thought content: varies, mostly appropriate. Abstract reasoning, and computation : good. Description of associations: good. Description of abnormal or psychotic thoughts: no psychosis observed, denies presence of internal stim. Denies SI and HI. Judgment: poor. Insight: very limited. Orientation: well oriented in all spheres. Recent and remote memory: appears intact, prone to confabulation, embellishment Attention span and concentration: good. Fund of knowledge: full. Mood: euthymic. Affect: tired. DIAGNOSES: 1. psychotic disorder unspecified 2. opiate dependency and abuse 3. alcohol dependency in remission 4. histrionic personality disorder ASSESSMENT:Pt is finding it hard to sleep and asks for an increase in hs medication. Discussed risperidone with him, its benefits and purpose for prescribing. He is agreeable to taking it. He has not had a good nights sleep in several weeks. He has found it difficult to adjust to the unit, routines, noises and lack of opiates. Pt attended group this a.m. then rested in p.m. he is appreciative of the extra pillows and comfort measures the staff was able to provide. He is alert and prefaces his statements with "I'm not making this up". Pt talked about missing work. he talked about one of his patients, their family and then about [place]. MANAGEMENT PLAN: increase risperidone for the main purpose of clear thinking, less confabulation, paranoid ideation. continue close obs. pt to observe room restriction in a.m. pt is encouraged to ambulate frequently while on the unit which he is doing. Raymond expressed he would like to have phone calls or visits from any family member. His sister did visit on Sunday. Pediatric Dermatologist phoned Bayron his brother and informed him of the current discharge plan to [facility] and asked that he call or visit Sonido when he is able. He is busy helping his daughter move right now. Bayron was given our patient phone numbers and asked to share them with Steve and Hanny. He stated he would do so. TIME SPENT: 20 minutes. Vital Signs Vital Signs Date Time Temp Pulse Resp B/P (MAP) Pulse Ox O2 Delivery O2 Flow Rate FiO2 05/29/17 12:06 158/77 05/29/17 06:49 98.7 83 20 Room Air Current Medications Current Medications Acetaminophen (Tylenol Tab) 650 mg Q6HP PRN PO HEADACHE or DISCOMFORT Last administered on 05/29/17 09:22; Start 05/16/17 at 20:15; Stop 06/15/17 at 20:14 Al Hydrox/Mg Hydrox/Simethicone (Mylanta) 30 ml Q4HP PRN PO HEARTBURN/ INDIGESTION Last administered on 05/24/17 18:02; Start 05/16/17 at 20:15; Stop 06/15/17 at 20:14 Albuterol Sulfate (Proventil, Ventolin Hfa) 2 puff Q4HP PRN INH SHORTNESS OF BREATH; Start 05/16/17 at 23:30; Stop 06/15/17 at 23:29 Albuterol/ Ipratropium (Duoneb (Ipr 0.5mg/Alb 2.5mg)) 3 ml RQ6H NEB Last administered on 05/23/17 07:56; Start 05/21/17 at 14:00; Stop 05/23/17 at 14:00; Status DC Clopidogrel Bisulfate (PLAVix) 75 mg DAILY PO Last administered on 05/29/17 09: 16; Start 05/17/17 at 09:00; Stop 06/16/17 at 08:59 Fenofibrate (Tricor) 145 mg DAILY PO Last administered on 05/29/17 09:17; Start 05/17/17 at 09:00; Stop 06/16/17 at 08:59 Home Med (Med Rec Complete!) ASDIRECTED XX ; Start 05/16/17 at 20:15; Stop at 20:15; Status DC Hydroxyzine HCl (Atarax) 25 mg Q6HP PRN PO ANXIETY Last administered on 19:57; Start 05/16/17 at 20:15; Stop 06/15/17 at 20:14 Isosorbide Dinitrate (Isordil) 10 mg QID PO ; Start 05/17/17 at 09:00; Stop at 09:00; Status DC Isosorbide Dinitrate (Isordil) 10 mg QID PO Last administered on 05/29/17 12:06 ; Start 05/17/17 at 09:00; Stop 06/16/17 at 08:59 Lidocaine (Lidoderm Patch) 2 patch DAILY TD Last administered on 05/21/17 09: 27; Start 05/17/17 at 09:00; Stop 06/16/17 at 08:59 Losartan Potassium (Cozaar) 100 mg DAILY PO ; Start 05/17/17 at 09:00; Stop at 09:00; Status DC Losartan Potassium (Cozaar) 100 mg DAILY PO Last administered on 05/29/17 09:18 ; Start 05/17/17 at 09:00; Stop 06/16/17 at 08:59 Magnesium Hydroxide (Milk Of Magnesia) 30 ml DAILYPRN PRN PO CONSTIPATION; Start 05/16/17 at 20:15; Stop 06/15/17 at 20:14 Mirtazapine (Remeron) 15 mg QHS PO Last administered on 05/21/17 20:37; Start 05/16/17 at 21:00; Stop 05/22/17 at 11:15; Status DC Nicotine (Nicoderm Cq 21mg) 1 patch DAILY TD Last administered on 05/29/17 09: 19; Start 05/17/17 at 09:00; Stop 06/16/17 at 08:59 Nifedipine (Procardia Xl) 90 mg DAILY PO Last administered on 05/29/17 09:18; Start 05/17/17 at 09:00; Stop 06/16/17 at 08:59 Non-Formulary Medication ( See Comment Field Below ) REMOVE LIDODERM PATCH DAILY@21 XX Last administered on 05/27/17 22:05; Start 05/17/17 at 21:00; Stop 06/16/17 at 20:59 Nystatin (Mycostatin Powder, Nystop) 1 dose BID TOP Last administered on 09:17; Start 05/17/17 at 09:00; Stop 06/16/17 at 08:59 Risperidone (RisperDAL) 0.25 mg QHS PO Last administered on 05/28/17 19:57; Start 05/24/17 at 21:00; Stop 06/23/17 at 20:59 Sertraline HCl (Zoloft) 50 mg QHS PO Last administered on 05/28/17 19:57; Start 05/23/17 at 21:00; Stop 06/22/17 at 20:59 Trazodone HCl (Desyrel) 50 mg QHS PO Last administered on 05/22/17 20:25; Start 05/22/17 at 21:00; Stop 05/23/17 at 14:15; Status DC Trazodone HCl (Desyrel) 50 mg QHSP PRN PO INSOMNIA; Start 05/16/17 at 20:15; Stop 05/17/17 at 03:26; Status DC Trazodone HCl (Desyrel) 100 mg QHSP PRN PO INSOMNIA Last administered on 21:19; Start 05/23/17 at 21:00; Stop 05/24/17 at 14:20; Status DC Allergies Coded Allergies: Codeine (Verified Allergy, Unknown, 05/16/17) Iodine (Verified Allergy, Unknown, 05/16/17) Morphine (Verified Allergy, Unknown, 05/16/17) Shellfish Allergy (Verified Allergy, Unknown, 05/16/17) Ирина Shultz May 29, 2017 13:55
[2017-05-29 16:57] VITALS: BP 130/70
[2017-05-29 18:11] VITALS: BP 120/68
[2017-05-29] MEDS: SERTRALINE HCL 50 MG TAB PO SCH (20:19)
[2017-05-29] MEDS: risperiDONE 1 MG TAB PO SCH (20:19)
[2017-05-29] MEDS: **NOTE PATIENT COMMENT** MISC XX SCH (20:35)
[2017-05-30 06:45] VITALS: BP 144/78
[2017-05-30] MEDS: LIDOCAINE 5% (LIDODERM) PATCH TD SCH (09:00)
[2017-05-30] MEDS: CLOPIDOGREL 75 MG TAB PO SCH (09:03)
[2017-05-30] MEDS: NICOTINE 21MG/24HR 1 EA TRANSDERMAL TD SCH (09:03)
[2017-05-30] MEDS: NIFEdipine 30 MG XL TAB PO SCH (09:03)
[2017-05-30] MEDS: LOSARTAN 50 MG TAB PO SCH (09:04)
[2017-05-30] MEDS: NYSTATIN 100,000 UNITS/GM TOPICAL PWD 15 GM TOP SCH ×2 (09:04→20:10)
[2017-05-30] MEDS: ISOSORBIDE DIN (ISORDIL) 10 MG TAB PO SCH ×4 (09:04→20:09)
[2017-05-30] MEDS: FENOFIBRATE 145 MG TAB (TRICOR) PO SCH (09:04)
--- NOTE | 2017-05-30 10:59 | MHIPNPDOC ---
[facility] Progress Note Progress Note DATE OF SERVICE: 05/30/17 HISTORY: day 15 of admission for suicidal statement. VITAL SIGNS: See below. NEW TEST RESULTS: na CURRENT MEDICATIONS: See below. MENTAL STATUS EXAMINATION: Patient is a 72-year old male, who is thin, small in stature, jacobson hair, ambulates well with walker, cooperative. Speech: Is spontaneous and logical Language skills are intact Thought processes including: circumstantial and tangential. Thought content: grandiosity. paranoia about family. Abstract reasoning, and computation: good. Description of associations: good. 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 He plans on making a recording and sending it to President Shad and his . Denies thoughts of harm to self or others. Judgment: limited. Insight: poor. Orientation: well oriented in all spheres. Recent and remote memory: impaired for some things like his trip to [place] from [place], appears intact for other things.. Attention span and concentration: adequate. Fund of knowledge: Full. Mood: euthymic. Affect: bright "I feel loved". DIAGNOSES: 1. psychotic disorder unspecified 2. opiate dependency and abuse 3. 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 he reports lack of sleep again last night. He slept for 9-1:30 a.m. which is an improvement. Will address by adding med to regime. Pt is dressed and in the lounge area viewing TV. He discusses his plans once discharged that include having a.m. coffee and 4 cigarettes then having breakfast and sketching. He says he wants to return to [place] via [employer] next year after he saves his money for a ticket. Pts mood is much more calm and kind compared to time of admission. he is much more reasonable and his affect is much improved. He smiles more and is more aware of boundaries. Pts gait is quite steady and quick with the walker. MANAGEMENT PLAN: add trazodone 50 mg at hs to risperidone, may be given at the same time. Continue close observation and room restrict so he is out of bed in AM and sits in at least one group. He prefers to be "a loner" but some social interaction is necessary while he is here. No complaints of pain verbalized today. TIME SPENT: 25 minutes. Vital Signs Vital Signs Date Time Temp Pulse Resp B/P (MAP) Pulse Ox O2 Delivery O2 Flow Rate FiO2 05/30/17 09:03 124/76 05/30/17 06:45 97.9 76 18 05/29/17 06:49 Room Air Current Medications Current Medications Acetaminophen (Tylenol Tab) 650 mg Q6HP PRN PO HEADACHE or DISCOMFORT Last administered on 05/29/17 20:30; Start 05/16/17 at 20:15; Stop 06/15/17 at 20:14 Al Hydrox/Mg Hydrox/Simethicone (Mylanta) 30 ml Q4HP PRN PO HEARTBURN/ INDIGESTION Last administered on 05/24/17 18:02; Start 05/16/17 at 20:15; Stop 06/15/17 at 20:14 Albuterol Sulfate (Proventil, Ventolin Hfa) 2 puff Q4HP PRN INH SHORTNESS OF BREATH; Start 05/16/17 at 23:30; Stop 06/15/17 at 23:29 Albuterol/ Ipratropium (Duoneb (Ipr 0.5mg/Alb 2.5mg)) 3 ml RQ6H NEB Last administered on 05/23/17 07:56; Start 05/21/17 at 14:00; Stop 05/23/17 at 14:00; Status DC Clopidogrel Bisulfate (PLAVix) 75 mg DAILY PO Last administered on 05/30/17 09: 03; Start 05/17/17 at 09:00; Stop 06/16/17 at 08:59 Fenofibrate (Tricor) 145 mg DAILY PO Last administered on 05/30/17 09:04; Start 05/17/17 at 09:00; Stop 06/16/17 at 08:59 Home Med (Med Rec Complete!) ASDIRECTED XX ; Start 05/16/17 at 20:15; Stop at 20:15; Status DC Hydroxyzine HCl (Atarax) 25 mg Q6HP PRN PO ANXIETY Last administered on 19:57; Start 05/16/17 at 20:15; Stop 06/15/17 at 20:14 Isosorbide Dinitrate (Isordil) 10 mg QID PO ; Start 05/17/17 at 09:00; Stop at 09:00; Status DC Isosorbide Dinitrate (Isordil) 10 mg QID PO Last administered on 05/30/17 09:04 ; Start 05/17/17 at 09:00; Stop 06/16/17 at 08:59 Lidocaine (Lidoderm Patch) 2 patch DAILY TD Last administered on 05/21/17 09: 27; Start 05/17/17 at 09:00; Stop 05/30/17 at 10:29; Status DC Losartan Potassium (Cozaar) 100 mg DAILY PO ; Start 05/17/17 at 09:00; Stop at 09:00; Status DC Losartan Potassium (Cozaar) 100 mg DAILY PO Last administered on 05/30/17 09:04 ; Start 05/17/17 at 09:00; Stop 06/16/17 at 08:59 Magnesium Hydroxide (Milk Of Magnesia) 30 ml DAILYPRN PRN PO CONSTIPATION; Start 05/16/17 at 20:15; Stop 06/15/17 at 20:14 Mirtazapine (Remeron) 15 mg QHS PO Last administered on 05/21/17 20:37; Start 05/16/17 at 21:00; Stop 05/22/17 at 11:15; Status DC Nicotine (Nicoderm Cq 21mg) 1 patch DAILY TD Last administered on 05/30/17 09: 03; Start 05/17/17 at 09:00; Stop 06/16/17 at 08:59 Nifedipine (Procardia Xl) 90 mg DAILY PO Last administered on 05/30/17 09:03; Start 05/17/17 at 09:00; Stop 06/16/17 at 08:59 Non-Formulary Medication ( See Comment Field Below ) REMOVE LIDODERM PATCH DAILY@21 XX Last administered on 05/27/17 22:05; Start 05/17/17 at 21:00; Stop 06/16/17 at 20:59 Nystatin (Mycostatin Powder, Nystop) 1 dose BID TOP Last administered on 09:04; Start 05/17/17 at 09:00; Stop 06/16/17 at 08:59 Risperidone (RisperDAL) 0.25 mg QHS PO Last administered on 05/28/17 19:57; Start 05/24/17 at 21:00; Stop 05/29/17 at 13:48; Status DC Risperidone (RisperDAL) 1 mg QHS PO Last administered on 05/29/17 20:19; Start 05/29/17 at 21:00; Stop 06/28/17 at 20:59 Sertraline HCl (Zoloft) 50 mg QHS PO Last administered on 05/29/17 20:19; Start 05/23/17 at 21:00; Stop 06/22/17 at 20:59 Trazodone HCl (Desyrel) 50 mg QHS PO Last administered on 05/22/17 20:25; Start 05/22/17 at 21:00; Stop 05/23/17 at 14:15; Status DC Trazodone HCl (Desyrel) 50 mg QHSP PRN PO INSOMNIA; Start 05/16/17 at 20:15; Stop 05/17/17 at 03:26; Status DC Trazodone HCl (Desyrel) 100 mg QHSP PRN PO INSOMNIA Last administered on 21:19; Start 05/23/17 at 21:00; Stop 05/24/17 at 14:20; Status DC Allergies Coded Allergies: Codeine (Verified Allergy, Unknown, 05/16/17) Iodine (Verified Allergy, Unknown, 05/16/17) Morphine (Verified Allergy, Unknown, 05/16/17) Shellfish Allergy (Verified Allergy, Unknown, 05/16/17) Ирина Shultz May 30, 2017 10:59
[2017-05-30 18:04] VITALS: BP 130/78
[2017-05-30] MEDS: **NOTE PATIENT COMMENT** MISC XX SCH (20:06)
[2017-05-30] MEDS: SERTRALINE HCL 50 MG TAB PO SCH (20:09)
[2017-05-30] MEDS: risperiDONE 1 MG TAB PO SCH (20:09)
[2017-05-30] MEDS: ACETAMINOPHEN TAB 650MG DOSE (2X325MG) PO PRN (20:09)
[2017-05-30] MEDS ORDERED: traZODone 50 MG TAB PO SCH (21:00)
[2017-05-31 07:18] VITALS: BP 150/80
[2017-05-31] MEDS: CLOPIDOGREL 75 MG TAB PO SCH (09:20)
[2017-05-31] MEDS: FENOFIBRATE 145 MG TAB (TRICOR) PO SCH (09:20)
[2017-05-31] MEDS: ISOSORBIDE DIN (ISORDIL) 10 MG TAB PO SCH ×4 (09:20→20:12)
[2017-05-31] MEDS: LOSARTAN 50 MG TAB PO SCH (09:20)
[2017-05-31] MEDS: NIFEdipine 30 MG XL TAB PO SCH (09:20)
[2017-05-31] MEDS: NICOTINE 21MG/24HR 1 EA TRANSDERMAL TD SCH (09:21)
[2017-05-31] MEDS: NYSTATIN 100,000 UNITS/GM TOPICAL PWD 15 GM TOP SCH ×2 (09:21→20:13)
--- NOTE | 2017-05-31 14:44 | MHIPNPDOC ---
[facility] Progress Note Progress Note DATE OF SERVICE: 05/31/17 HISTORY: day16 for Suicide statement made in the presence of others regarding his pain medication. VITAL SIGNS: See below. NEW TEST RESULTS: na CURRENT MEDICATIONS: See below. MENTAL STATUS EXAMINATION: Patient is a 72-year old male, who is small in stature, ambulates well with walker, makes good eye contact. Speech: Is spontaneous Language skills are intact Thought processes including: tangential, circumstantial. Thought content: grandiosity, paranoia when talking of family. Abstract reasoning, and computation: good. Description of associations: good. Description of abnormal or psychotic thoughts: pt may be experiencing delusions about his family of origin, his upbringing. He over medicates with Opiates and then does not remember things. No SI or HI. Judgment: limited Insight: very limited. Orientation: well oriented Recent and remote memory: may confabulate to prove his importance and his accomplishments. Attention span and concentration: good. Fund of knowledge: Full. Mood: euthymic. Affect: congruent. DIAGNOSES: 1. psychotic disorder unspecified 2. opiate dependency and abuse 3. alcohol dependency in remission 4. histrionic personality disorder ASSESSMENT:pt reports 1 hour of sleep but other records show he slept 5 hours. pt wants to spend all his time in his room. He is out in am. but was given a lot of time yesterday afternoon to rest which may have prevented him from sleeping last night. He took both Risperidone 1 mg and trazodone 50 mg. Pt's brother arrived unannounced to meet with ticket writer. He explained that he would like to assist in preparing [facility] apartment for him by purchasing curtains , cleaning supplies and pots and pans. All that he would need to get started when he is discharge. He plans on asking his brother for $100. He also says Sonido owes him $200 for the move and he says he really needs this money. He asked ticket writer to tell Sonido and see if he would give written permission for him to take the money out of his account. He says his brother owed a total of $400 in moving costs but has paid $200. He asked if we cold assist with Sonido getting food stamps. Sonido has had MOW in the past and his food stamps would cover MOW here. Discussed these requests with CDP and also asked about payee through DSS since there will not be an Adult protective case filed agains Sonido's brother. MANAGEMENT PLAN: increase trazodone to 100 mg at hs to be given with Risperidone TIME SPENT: 15 minutes. Vital Signs Vital Signs Date Time Temp Pulse Resp B/P (MAP) Pulse Ox O2 Delivery O2 Flow Rate FiO2 05/31/17 12:33 160/84 05/31/17 07:18 98.6 92 20 05/29/17 06:49 Room Air Current Medications Current Medications Acetaminophen (Tylenol Tab) 650 mg Q6HP PRN PO HEADACHE or DISCOMFORT Last administered on 05/30/17 20:09; Start 05/16/17 at 20:15; Stop 06/15/17 at 20:14 Al Hydrox/Mg Hydrox/Simethicone (Mylanta) 30 ml Q4HP PRN PO HEARTBURN/ INDIGESTION Last administered on 05/24/17 18:02; Start 05/16/17 at 20:15; Stop 06/15/17 at 20:14 Albuterol Sulfate (Proventil, Ventolin Hfa) 2 puff Q4HP PRN INH SHORTNESS OF BREATH; Start 05/16/17 at 23:30; Stop 06/15/17 at 23:29 Albuterol/ Ipratropium (Duoneb (Ipr 0.5mg/Alb 2.5mg)) 3 ml RQ6H NEB Last administered on 05/23/17 07:56; Start 05/21/17 at 14:00; Stop 05/23/17 at 14:00; Status DC Clopidogrel Bisulfate (PLAVix) 75 mg DAILY PO Last administered on 05/31/17 09 :20; Start 05/17/17 at 09:00; Stop 06/16/17 at 08:59 Fenofibrate (Tricor) 145 mg DAILY PO Last administered on 05/31/17 09:20; Start 05/17/17 at 09:00; Stop 06/16/17 at 08:59 Home Med (Med Rec Complete!) ASDIRECTED XX ; Start 05/16/17 at 20:15; Stop at 20:15; Status DC Hydroxyzine HCl (Atarax) 25 mg Q6HP PRN PO ANXIETY Last administered on 19:57; Start 05/16/17 at 20:15; Stop 06/15/17 at 20:14 Isosorbide Dinitrate (Isordil) 10 mg QID PO ; Start 05/17/17 at 09:00; Stop at 09:00; Status DC Isosorbide Dinitrate (Isordil) 10 mg QID PO Last administered on 05/31/17 12: 33; Start 05/17/17 at 09:00; Stop 06/16/17 at 08:59 Lidocaine (Lidoderm Patch) 2 patch DAILY TD Last administered on 05/21/17 09: 27; Start 05/17/17 at 09:00; Stop 05/30/17 at 10:29; Status DC Losartan Potassium (Cozaar) 100 mg DAILY PO ; Start 05/17/17 at 09:00; Stop at 09:00; Status DC Losartan Potassium (Cozaar) 100 mg DAILY PO Last administered on 05/31/17 09: 20; Start 05/17/17 at 09:00; Stop 06/16/17 at 08:59 Magnesium Hydroxide (Milk Of Magnesia) 30 ml DAILYPRN PRN PO CONSTIPATION; Start 05/16/17 at 20:15; Stop 06/15/17 at 20:14 Mirtazapine (Remeron) 15 mg QHS PO Last administered on 05/21/17 20:37; Start 05/16/17 at 21:00; Stop 05/22/17 at 11:15; Status DC Nicotine (Nicoderm Cq 21mg) 1 patch DAILY TD Last administered on 05/31/17 09: 21; Start 05/17/17 at 09:00; Stop 06/16/17 at 08:59 Nifedipine (Procardia Xl) 90 mg DAILY PO Last administered on 05/31/17 09:20; Start 05/17/17 at 09:00; Stop 06/16/17 at 08:59 Non-Formulary Medication ( See Comment Field Below ) REMOVE LIDODERM PATCH DAILY@21 XX Last administered on 05/27/17 22:05; Start 05/17/17 at 21:00; Stop 06/16/17 at 20:59 Nystatin (Mycostatin Powder, Nystop) 1 dose BID TOP Last administered on 09:21; Start 05/17/17 at 09:00; Stop 06/16/17 at 08:59 Risperidone (RisperDAL) 0.25 mg QHS PO Last administered on 05/28/17 19:57; Start 05/24/17 at 21:00; Stop 05/29/17 at 13:48; Status DC Risperidone (RisperDAL) 1 mg QHS PO Last administered on 05/30/17 20:09; Start 05/29/17 at 21:00; Stop 06/28/17 at 20:59 Sertraline HCl (Zoloft) 50 mg QHS PO Last administered on 05/30/17 20:09; Start 05/23/17 at 21:00; Stop 06/22/17 at 20:59 Trazodone HCl (Desyrel) 50 mg QHS PO Last administered on 05/22/17 20:25; Start 05/22/17 at 21:00; Stop 05/23/17 at 14:15; Status DC Trazodone HCl (Desyrel) 50 mg QHS PO Last administered on 05/30/17 20:09; Start 05/30/17 at 21:00; Stop 05/31/17 at 12:11; Status DC Trazodone HCl (Desyrel) 50 mg QHSP PRN PO INSOMNIA; Start 05/16/17 at 20:15; Stop 05/17/17 at 03:26; Status DC Trazodone HCl (Desyrel) 100 mg QHS PO ; Start 05/31/17 at 21:00; Stop 06/30/17 at 20:59 Trazodone HCl (Desyrel) 100 mg QHSP PRN PO INSOMNIA Last administered on 21:19; Start 05/23/17 at 21:00; Stop 05/24/17 at 14:20; Status DC Allergies Coded Allergies: Codeine (Verified Allergy, Unknown, 05/16/17) Iodine (Verified Allergy, Unknown, 05/16/17) Morphine (Verified Allergy, Unknown, 05/16/17) Shellfish Allergy (Verified Allergy, Unknown, 05/16/17) Ирина Shultz May 31, 2017 14:44
[2017-05-31 18:00] VITALS: BP 128/64
[2017-05-31] MEDS: **NOTE PATIENT COMMENT** MISC XX SCH (20:06)
[2017-05-31] MEDS: risperiDONE 1 MG TAB PO SCH (20:12)
[2017-05-31] MEDS: SERTRALINE HCL 50 MG TAB PO SCH (20:12)
[2017-05-31] MEDS: ACETAMINOPHEN TAB 650MG DOSE (2X325MG) PO PRN (20:13)
[2017-05-31] MEDS ORDERED: traZODone 50 MG TAB PO SCH (21:00)
[2017-06-01 07:00] VITALS: BP 143/69
[2017-06-01] MEDS: FENOFIBRATE 145 MG TAB (TRICOR) PO SCH (09:43)
[2017-06-01] MEDS: ISOSORBIDE DIN (ISORDIL) 10 MG TAB PO SCH ×4 (09:44→20:01)
[2017-06-01] MEDS: CLOPIDOGREL 75 MG TAB PO SCH (09:45)
[2017-06-01] MEDS: ACETAMINOPHEN TAB 650MG DOSE (2X325MG) PO PRN (09:45)
[2017-06-01] MEDS: LOSARTAN 50 MG TAB PO SCH (09:45)
[2017-06-01] MEDS: NICOTINE 21MG/24HR 1 EA TRANSDERMAL TD SCH (09:46)
[2017-06-01] MEDS: NIFEdipine 30 MG XL TAB PO SCH (09:46)
[2017-06-01] MEDS: NYSTATIN 100,000 UNITS/GM TOPICAL PWD 15 GM TOP SCH ×2 (09:46→19:58)
--- NOTE | 2017-06-01 11:03 | MHIPNPDOC ---
[facility] Progress Note Progress Note DATE OF SERVICE: 06/01/17 HISTORY: day 17 of admission for si regarding pain meds. VITAL SIGNS: See below. NEW TEST RESULTS: na CURRENT MEDICATIONS: See below. MENTAL STATUS EXAMINATION: Patient is a 72-year old male, who is frail, jacobson hair, ambulates with walker and is steady, awake, alert and cooperative. Speech: Is clear and spontaneous, soft in tone Language skills are good. Thought processes including: liner Thought content: paranoid regarding money & family. Grandiosity about accomplishments, embellishment and confabulation regarding life story. Abstract reasoning, and computation: good. Description of associations: good. Description of abnormal or psychotic thoughts: pt does present as delusional about his past but this cannot be confirmed. He does not appear to be responding to internal stim and denies auditory and visual disturbances. He denies suicidal or homicidal thoughts or intentions. Judgment: limited Insight: limited, he says he learns from his mistakes . Orientation: well oriented to time, place, person and surrounding. Recent and remote memory: needs further assessment due to embellishment and grandiosity and statements the family insists are lies. (switched as an on a train, not allowed to kiss his mother. Attention span and concentration: good Fund of knowledge: Full. Mood: euthymic. Affect: congruent. DIAGNOSES: 1. psychotic disorder unspecified 2. opiate dependency and abuse 3. alcohol dependency in remission 4. histrionic personality disorder ASSESSMENT:pt is fully dressed sitting in lounge eating breakfast. He states he is having problems sleeping as his roommate is noisy and up a lot during the night. he asked for a room change but as luck would have it his roommate is being switched to a new room and Doretha new roommate is very quiet. Hopefully this will be satisfactory. Regardless he feels he needs stronger medication for sleep. pt was presented with brothers offer to ready his apartment so when Sonido moves in the cable is on, supplies and food are provided, but Sonido declines and does not want his brother to access his money. Bayron says he will provide all receipts. This was shared with Bayron. Bayron is trying to be helpful but Sonido does not see it that way. Sonido also refuses to consider a payee for his SSI benefits as he would surrender control of his assets. He agrees he has spent foolishly on [employer] tickets in the past but says now "I am committed to playing only 3 numbers, not the usual 15 or 20". Jeana from [facility] [id number] called to let us know she has an apartment available 06/08 for Sonido. We need to get case management in place, MOW, and home health aid. His insurance is still state of [place] and needs to be converted to [place]. Leaving on the depends on many factors and our DC Rag Washer will work on these things. MANAGEMENT PLAN: will prescribe Ambien for weekend use only as pt feels sleep deprived. He denies sleeping during the daytime. He often takes about 75 mg of Benadryl for sleep so he may need to alternate several medications so he does not become tolerant of any of them. His mood is improving and affect as well. He is less grandiose but insists on being by himself and not in a group. He did attend 1 group this morning that happened to be held in the same room he was in for TV viewing. He is complying with requests to remain OOB most of the day. No behavior challenges. Taking meds as prescribed. Continue close obs, encourage ambulation and good po intake. TIME SPENT: 25 minutes. Vital Signs Vital Signs Date Time Temp Pulse Resp B/P (MAP) Pulse Ox O2 Delivery O2 Flow Rate FiO2 06/01/17 09:46 143/69 06/01/17 07:00 98.8 86 18 05/29/17 06:49 Room Air Current Medications Current Medications Acetaminophen (Tylenol Tab) 650 mg Q6HP PRN PO HEADACHE or DISCOMFORT Last administered on 06/01/17 09:45; Start 05/16/17 at 20:15; Stop 06/15/17 at 20:14 Al Hydrox/Mg Hydrox/Simethicone (Mylanta) 30 ml Q4HP PRN PO HEARTBURN/ INDIGESTION Last administered on 05/24/17 18:02; Start 05/16/17 at 20:15; Stop 06/15/17 at 20:14 Albuterol Sulfate (Proventil, Ventolin Hfa) 2 puff Q4HP PRN INH SHORTNESS OF BREATH; Start 05/16/17 at 23:30; Stop 06/15/17 at 23:29 Albuterol/ Ipratropium (Duoneb (Ipr 0.5mg/Alb 2.5mg)) 3 ml RQ6H NEB Last administered on 05/23/17 07:56; Start 05/21/17 at 14:00; Stop 05/23/17 at 14:00; Status DC Clopidogrel Bisulfate (PLAVix) 75 mg DAILY PO Last administered on 06/01/17 09 :45; Start 05/17/17 at 09:00; Stop 06/16/17 at 08:59 Fenofibrate (Tricor) 145 mg DAILY PO Last administered on 06/01/17 09:43; Start 05/17/17 at 09:00; Stop 06/16/17 at 08:59 Home Med (Med Rec Complete!) ASDIRECTED XX ; Start 05/16/17 at 20:15; Stop at 20:15; Status DC Hydroxyzine HCl (Atarax) 25 mg Q6HP PRN PO ANXIETY Last administered on 19:57; Start 05/16/17 at 20:15; Stop 06/15/17 at 20:14 Isosorbide Dinitrate (Isordil) 10 mg QID PO ; Start 05/17/17 at 09:00; Stop at 09:00; Status DC Isosorbide Dinitrate (Isordil) 10 mg QID PO Last administered on 06/01/17 09: 44; Start 05/17/17 at 09:00; Stop 06/16/17 at 08:59 Lidocaine (Lidoderm Patch) 2 patch DAILY TD Last administered on 05/21/17 09: 27; Start 05/17/17 at 09:00; Stop 05/30/17 at 10:29; Status DC Losartan Potassium (Cozaar) 100 mg DAILY PO ; Start 05/17/17 at 09:00; Stop at 09:00; Status DC Losartan Potassium (Cozaar) 100 mg DAILY PO Last administered on 06/01/17 09: 45; Start 05/17/17 at 09:00; Stop 06/16/17 at 08:59 Magnesium Hydroxide (Milk Of Magnesia) 30 ml DAILYPRN PRN PO CONSTIPATION; Start 05/16/17 at 20:15; Stop 06/15/17 at 20:14 Mirtazapine (Remeron) 15 mg QHS PO Last administered on 05/21/17 20:37; Start 05/16/17 at 21:00; Stop 05/22/17 at 11:15; Status DC Nicotine (Nicoderm Cq 21mg) 1 patch DAILY TD Last administered on 06/01/17 09: 46; Start 05/17/17 at 09:00; Stop 06/16/17 at 08:59 Nifedipine (Procardia Xl) 90 mg DAILY PO Last administered on 06/01/17 09:46; Start 05/17/17 at 09:00; Stop 06/16/17 at 08:59 Non-Formulary Medication ( See Comment Field Below ) REMOVE LIDODERM PATCH DAILY@21 XX Last administered on 05/27/17 22:05; Start 05/17/17 at 21:00; Stop 06/16/17 at 20:59 Nystatin (Mycostatin Powder, Nystop) 1 dose BID TOP Last administered on 09:46; Start 05/17/17 at 09:00; Stop 06/16/17 at 08:59 Risperidone (RisperDAL) 0.25 mg QHS PO Last administered on 05/28/17 19:57; Start 05/24/17 at 21:00; Stop 05/29/17 at 13:48; Status DC Risperidone (RisperDAL) 1 mg QHS PO Last administered on 05/31/17 20:12; Start 05/29/17 at 21:00; Stop 06/28/17 at 20:59 Sertraline HCl (Zoloft) 50 mg QHS PO Last administered on 05/31/17 20:12; Start 05/23/17 at 21:00; Stop 06/22/17 at 20:59 Trazodone HCl (Desyrel) 50 mg QHS PO Last administered on 05/22/17 20:25; Start 05/22/17 at 21:00; Stop 05/23/17 at 14:15; Status DC Trazodone HCl (Desyrel) 50 mg QHS PO Last administered on 05/30/17 20:09; Start 05/30/17 at 21:00; Stop 05/31/17 at 12:11; Status DC Trazodone HCl (Desyrel) 50 mg QHSP PRN PO INSOMNIA; Start 05/16/17 at 20:15; Stop 05/17/17 at 03:26; Status DC Trazodone HCl (Desyrel) 100 mg QHS PO Last administered on 05/31/17 20:11; Start 05/31/17 at 21:00; Stop 06/30/17 at 20:59 Trazodone HCl (Desyrel) 100 mg QHSP PRN PO INSOMNIA Last administered on 21:19; Start 05/23/17 at 21:00; Stop 05/24/17 at 14:20; Status DC Allergies Coded Allergies: Codeine (Verified Allergy, Unknown, 05/16/17) Iodine (Verified Allergy, Unknown, 05/16/17) Morphine (Verified Allergy, Unknown, 05/16/17) Shellfish Allergy (Verified Allergy, Unknown, 05/16/17) Ирина Shultz Jun 01, 2017 11:03
[2017-06-01 18:00] VITALS: BP 133/70
[2017-06-01] MEDS: **NOTE PATIENT COMMENT** MISC XX SCH (19:58)
[2017-06-01] MEDS: risperiDONE 1 MG TAB PO SCH (20:01)
[2017-06-01] MEDS: SERTRALINE HCL 50 MG TAB PO SCH (20:01)
[2017-06-01] MEDS: zolPIDEM TARTRATE 10MG TAB PO PRN (20:01)
[2017-06-02] MEDS: NYSTATIN 100,000 UNITS/GM TOPICAL PWD 15 GM TOP SCH ×2 (09:00→20:24)
[2017-06-02] MEDS: CLOPIDOGREL 75 MG TAB PO SCH (09:30)
[2017-06-02] MEDS: FENOFIBRATE 145 MG TAB (TRICOR) PO SCH (09:30)
[2017-06-02] MEDS: NIFEdipine 30 MG XL TAB PO SCH (09:31)
[2017-06-02] MEDS: LOSARTAN 50 MG TAB PO SCH (09:31)
[2017-06-02] MEDS: ISOSORBIDE DIN (ISORDIL) 10 MG TAB PO SCH ×4 (09:31→20:24)
[2017-06-02] MEDS: ACETAMINOPHEN TAB 650MG DOSE (2X325MG) PO PRN (09:32)
[2017-06-02] MEDS: NICOTINE 21MG/24HR 1 EA TRANSDERMAL TD SCH (09:32)
[2017-06-02 18:22] VITALS: BP 128/68
[2017-06-02] MEDS: SERTRALINE HCL 50 MG TAB PO SCH (20:22)
[2017-06-02] MEDS: zolPIDEM TARTRATE 10MG TAB PO PRN (20:22)
[2017-06-02] MEDS: risperiDONE 1 MG TAB PO SCH (20:24)
[2017-06-02] MEDS: **NOTE PATIENT COMMENT** MISC XX SCH (21:00)
[2017-06-03 06:27] VITALS: BP 147/85
[2017-06-03] MEDS: NYSTATIN 100,000 UNITS/GM TOPICAL PWD 15 GM TOP SCH ×2 (09:00→20:33)
[2017-06-03] MEDS: FENOFIBRATE 145 MG TAB (TRICOR) PO SCH (09:27)
[2017-06-03] MEDS: NIFEdipine 30 MG XL TAB PO SCH (09:28)
[2017-06-03] MEDS: ISOSORBIDE DIN (ISORDIL) 10 MG TAB PO SCH ×4 (09:28→20:32)
[2017-06-03] MEDS: CLOPIDOGREL 75 MG TAB PO SCH (09:28)
[2017-06-03] MEDS: LOSARTAN 50 MG TAB PO SCH (09:28)
[2017-06-03] MEDS: NICOTINE 21MG/24HR 1 EA TRANSDERMAL TD SCH (09:29)
[2017-06-03 18:30] VITALS: BP 140/79
[2017-06-03] MEDS: **NOTE PATIENT COMMENT** MISC XX SCH (20:29)
[2017-06-03] MEDS: risperiDONE 1 MG TAB PO SCH (20:32)
[2017-06-03] MEDS: SERTRALINE HCL 50 MG TAB PO SCH (20:32)
[2017-06-03] MEDS: zolPIDEM TARTRATE 10MG TAB PO PRN (20:33)
[2017-06-03] MEDS: ACETAMINOPHEN TAB 650MG DOSE (2X325MG) PO PRN (20:33)
[2017-06-04 07:05] VITALS: BP 145/80
[2017-06-04] MEDS: NICOTINE 21MG/24HR 1 EA TRANSDERMAL TD SCH (08:07)
[2017-06-04] MEDS: CLOPIDOGREL 75 MG TAB PO SCH (08:07)
[2017-06-04] MEDS: LOSARTAN 50 MG TAB PO SCH (08:08)
[2017-06-04] MEDS: FENOFIBRATE 145 MG TAB (TRICOR) PO SCH (08:08)
[2017-06-04] MEDS: ISOSORBIDE DIN (ISORDIL) 10 MG TAB PO SCH ×4 (08:08→20:02)
[2017-06-04] MEDS: NIFEdipine 30 MG XL TAB PO SCH (08:08)
[2017-06-04] MEDS: ACETAMINOPHEN TAB 650MG DOSE (2X325MG) PO PRN (08:09)
[2017-06-04] MEDS: NYSTATIN 100,000 UNITS/GM TOPICAL PWD 15 GM TOP SCH ×2 (08:11→20:03)
--- NOTE | 2017-06-04 17:02 | MHIPNPDOC ---
[facility] Progress Note Progress Note DATE OF SERVICE: 06/04/17 HISTORY: day 20 of admission for SI after disagreement over pain meds. VITAL SIGNS: See below. NEW TEST RESULTS: na. CURRENT MEDICATIONS: See below. MENTAL STATUS EXAMINATION: Patient is a 72-year old male, who is sitting in lounge watching tv with others , pleasant and smiling. Speech: Is spontaneous Language skills are good. Thought processes including: goal directed. Thought content: appropriate. Abstract reasoning, and computation: good. Description of associations: good. Description of abnormal or psychotic thoughts: none. Judgment: limited. Insight: limited. Orientation: well oriented. Recent and remote memory: appears intact Attention span and concentration: good. Fund of knowledge: full Mood: euthymic. Affect: congruent. DIAGNOSES: 1. psychotic disorder unspecified 2. opiate dependency and abuse 3. alcohol dependency in remission 4. histrionic personality disorder ASSESSMENT:pt states he had a bit of a disagreement with his brother over the weekend but they have worked it out. He will allow [facility] to withdraw some money this week to help set up his apartment. he also had an argument with a roommate according to staff and both threatened to kill each other. Raymond was moved to a new location. He appears happier now. PO intake is much improved. he is clean shaven. He has adjusted to the milieu and is doing better. He reports that his depression is no longer present. He states he is trying to accept things and then make his way to [place] when he can. MANAGEMENT PLAN: continue to work toward discharge on SUN, plans in place for assistance with MOW and home health aid. Person assisting with MOW will also help with medicaid and food stamps. continue room restriction, meds and close observation. TIME SPENT: 15 minutes. Vital Signs Vital Signs Date Time Temp Pulse Resp B/P (MAP) Pulse Ox O2 Delivery O2 Flow Rate FiO2 06/04/17 16:13 132/60 06/04/17 07:05 98.4 79 18 Room Air Current Medications Current Medications Acetaminophen (Tylenol Tab) 650 mg Q6HP PRN PO HEADACHE or DISCOMFORT Last administered on 06/04/17t 08:09; Start 05/16/17 at 20:15; Stop 06/15/17 at 20:14 Al Hydrox/Mg Hydrox/Simethicone (Mylanta) 30 ml Q4HP PRN PO HEARTBURN/ INDIGESTION Last administered on 05/24/17 18:02; Start 05/16/17 at 20:15; Stop 06/15/17 at 20:14 Albuterol Sulfate (Proventil, Ventolin Hfa) 2 puff Q4HP PRN INH SHORTNESS OF BREATH; Start 05/16/17 at 23:30; Stop 06/15/17 at 23:29 Albuterol/ Ipratropium (Duoneb (Ipr 0.5mg/Alb 2.5mg)) 3 ml RQ6H NEB Last administered on 05/23/17 07:56; Start 05/21/17 at 14:00; Stop 05/23/17 at 14:00; Status DC Clopidogrel Bisulfate (PLAVix) 75 mg DAILY PO Last administered on 06/04/17 08 :07; Start 05/17/17 at 09:00; Stop 06/16/17 at 08:59 Diphenhydramine HCl (Benadryl) 100 mg QHS PO ; Start 06/04/17 at 21:00; Stop at 22:00 Fenofibrate (Tricor) 145 mg DAILY PO Last administered on 06/04/17 08:08; Start 05/17/17 at 09:00; Stop 06/16/17 at 08:59 Home Med (Med Rec Complete!) ASDIRECTED XX ; Start 05/16/17 at 20:15; Stop at 20:15; Status DC Hydroxyzine HCl (Atarax) 25 mg Q6HP PRN PO ANXIETY Last administered on 19:57; Start 05/16/17 at 20:15; Stop 06/15/17 at 20:14 Isosorbide Dinitrate (Isordil) 10 mg QID PO ; Start 05/17/17 at 09:00; Stop at 09:00; Status DC Isosorbide Dinitrate (Isordil) 10 mg QID PO Last administered on 06/04/17 16: 13; Start 05/17/17 at 09:00; Stop 06/16/17 at 08:59 Lidocaine (Lidoderm Patch) 2 patch DAILY TD Last administered on 05/21/17 09: 27; Start 05/17/17 at 09:00; Stop 05/30/17 at 10:29; Status DC Losartan Potassium (Cozaar) 100 mg DAILY PO ; Start 05/17/17 at 09:00; Stop at 09:00; Status DC Losartan Potassium (Cozaar) 100 mg DAILY PO Last administered on 06/04/17 08: 08; Start 05/17/17 at 09:00; Stop 06/16/17 at 08:59 Magnesium Hydroxide (Milk Of Magnesia) 30 ml DAILYPRN PRN PO CONSTIPATION; Start 05/16/17 at 20:15; Stop 06/15/17 at 20:14 Mirtazapine (Remeron) 15 mg QHS PO Last administered on 05/21/17 20:37; Start 05/16/17 at 21:00; Stop 05/22/17 at 11:15; Status DC Nicotine (Nicoderm Cq 21mg) 1 patch DAILY TD Last administered on 06/04/17 08: 07; Start 05/17/17 at 09:00; Stop 06/16/17 at 08:59 Nifedipine (Procardia Xl) 90 mg DAILY PO Last administered on 06/04/17 08:08; Start 05/17/17 at 09:00; Stop 06/16/17 at 08:59 Non-Formulary Medication ( See Comment Field Below ) REMOVE LIDODERM PATCH DAILY@21 XX Last administered on 05/27/17 22:05; Start 05/17/17 at 21:00; Stop 06/16/17 at 20:59 Nystatin (Mycostatin Powder, Nystop) 1 dose BID TOP Last administered on 20:33; Start 05/17/17 at 09:00; Stop 06/16/17 at 08:59 Risperidone (RisperDAL) 0.25 mg QHS PO Last administered on 05/28/17 19:57; Start 05/24/17 at 21:00; Stop 05/29/17 at 13:48; Status DC Risperidone (RisperDAL) 1 mg QHS PO Last administered on 06/03/17 20:32; Start 05/29/17 at 21:00; Stop 06/28/17 at 20:59 Sertraline HCl (Zoloft) 50 mg QHS PO Last administered on 06/03/17 20:32; Start 05/23/17 at 21:00; Stop 06/22/17 at 20:59 Trazodone HCl (Desyrel) 50 mg QHS PO Last administered on 05/22/17 20:25; Start 05/22/17 at 21:00; Stop 05/23/17 at 14:15; Status DC Trazodone HCl (Desyrel) 50 mg QHS PO Last administered on 05/30/17 20:09; Start 05/30/17 at 21:00; Stop 05/31/17 at 12:11; Status DC Trazodone HCl (Desyrel) 50 mg QHSP PRN PO INSOMNIA; Start 05/16/17 at 20:15; Stop 05/17/17 at 03:26; Status DC Trazodone HCl (Desyrel) 100 mg QHS PO Last administered on 05/31/17 20:11; Start 05/31/17 at 21:00; Stop 06/01/17 at 13:04; Status DC Trazodone HCl (Desyrel) 100 mg QHSP PRN PO INSOMNIA Last administered on 21:19; Start 05/23/17 at 21:00; Stop 05/24/17 at 14:20; Status DC Zolpidem Tartrate (Ambien) 10 mg QHSP PRN PO INSOMNIA Last administered on 06/03 20:33; Start 06/01/17 at 21:00; Stop 06/04/17 at 09:00; Status DC Allergies Coded Allergies: Codeine (Verified Allergy, Unknown, 05/16/17) Iodine (Verified Allergy, Unknown, 05/16/17) Morphine (Verified Allergy, Unknown, 05/16/17) Shellfish Allergy (Verified Allergy, Unknown, 05/16/17) Ирина Shultz Jun 04, 2017 17:01
[2017-06-04 18:00] VITALS: BP 123/68
[2017-06-04] MEDS: risperiDONE 1 MG TAB PO SCH (20:03)
[2017-06-04] MEDS: diphenhydrAMINE 50 MG CAP PO SCH (20:03)
[2017-06-04] MEDS: SERTRALINE HCL 50 MG TAB PO SCH (20:03)
[2017-06-04] MEDS: **NOTE PATIENT COMMENT** MISC XX SCH (20:03)
[2017-06-04] MEDS ORDERED: zolPIDEM TARTRATE 10MG TAB PO ONE (21:00)
[2017-06-05 06:50] VITALS: BP 139/77
[2017-06-05] MEDS: LOSARTAN 50 MG TAB PO SCH (08:43)
[2017-06-05] MEDS: NICOTINE 21MG/24HR 1 EA TRANSDERMAL TD SCH (08:43)
[2017-06-05] MEDS: CLOPIDOGREL 75 MG TAB PO SCH (08:43)
[2017-06-05] MEDS: NIFEdipine 30 MG XL TAB PO SCH (08:44)
[2017-06-05] MEDS: ISOSORBIDE DIN (ISORDIL) 10 MG TAB PO SCH ×4 (08:44→20:20)
[2017-06-05] MEDS: FENOFIBRATE 145 MG TAB (TRICOR) PO SCH (08:44)
[2017-06-05] MEDS: NYSTATIN 100,000 UNITS/GM TOPICAL PWD 15 GM TOP SCH ×2 (08:46→20:21)
--- NOTE | 2017-06-05 12:33 | MHIPNPDOC ---
[facility] Progress Note Progress Note DATE OF SERVICE: 06/05/17 HISTORY: day 21 of admission for SI due to argument over pain medication. VITAL SIGNS: See below. NEW TEST RESULTS: na. CURRENT MEDICATIONS: See below. MENTAL STATUS EXAMINATION: Patient is a 72-year old male, who is laying in bed doing "isometrics", clean shaven, wearing some street clothes, pleasant. Speech: Is soft, logical Language skills are good. Thought processes including: goal directed, tangental Thought content: appropriate. Abstract reasoning, and computation: good. Description of associations: good. Description of abnormal or psychotic thoughts: pt is less paranoid, less histrionic, less manipulative, pt denies SI and HI and appears to be reality based in his thoughts. Judgment: fair Insight: good. Orientation: well oriented in all spheres. Recent and remote memory: intact on many things except his move from [place] to [place] - he has absolutely no recall Attention span and concentration: good. Fund of knowledge: Full Mood: euthymic. Affect: congruent. DIAGNOSES: 1. psychotic disorder unspecified 2. opiate dependency and abuse 3. alcohol dependency in remission 4. histrionic personality disorder ASSESSMENT: met with pt for 1:1. He asked about his sleep med. It appears nursing obtained a one time order for Ambien but I only wanted him to have the medication for the weekend. He was only to take benadryl last night. Contacted med room ([facility]) and left directions to only follow my orders for his hs meds regarding Ambien. Pt slept very well he said. Pt talked about his brother and how he hopes to improve communication with him. When he would berate his brother he was reminded about forgiveness and living in the present moment,letting go of the hurtful things of the past. He understood and seems to have a good plan for ongoing interaction with [facility]. He is concerned about the winter here and rightfully so. He was informed that a medicare cab should take him to all his medical appts including behavior health needs. We discussed his pain and the fact that he has not taken any opiates since his admission. We discussed alternatives to opioids and hopefully he will stay this course after discharge with his new PCP. He says he has been on narcotics since the age of 7 but it no longer appears that he needs them and he has demonstrated recklessness when taking them. He does not eat, he does not shower , dress or get out of bed. He diaz the rug and the furniture from smoking when taking hydrocodone. Without hydrocodone he is a different person. It is hoped that community services will come in today to help wiht Insurance and Food stamp needs. they have been contacted. MANAGEMENT PLAN: Hopefully arrangements will be completed by 06/08 so he can be discharged to an apartment at [facility]. Continue meds and close observation. Enc pt to be out of room for several hours a day. We discussed the need for balance. He says he gets nervous around people, but he sees that he has also benefitted from the attention other's have paid to him. TIME SPENT: 25 minutes. Vital Signs Vital Signs Date Time Temp Pulse Resp B/P (MAP) Pulse Ox O2 Delivery O2 Flow Rate FiO2 06/05/17 08:43 147/74 06/05/17 06:50 96.8 84 16 Room Air Current Medications Current Medications Acetaminophen (Tylenol Tab) 650 mg Q6HP PRN PO HEADACHE or DISCOMFORT Last administered on 06/04/17 08:09; Start 05/16/17 at 20:15; Stop 06/15/17 at 20:14 Al Hydrox/Mg Hydrox/Simethicone (Mylanta) 30 ml Q4HP PRN PO HEARTBURN/ INDIGESTION Last administered on 05/24/17 18:02; Start 05/16/17 at 20:15; Stop 06/15/17 at 20:14 Albuterol Sulfate (Proventil, Ventolin Hfa) 2 puff Q4HP PRN INH SHORTNESS OF BREATH; Start 05/16/17 at 23:30; Stop 06/15/17 at 23:29 Albuterol/ Ipratropium (Duoneb (Ipr 0.5mg/Alb 2.5mg)) 3 ml RQ6H NEB Last administered on 05/23/17 07:56; Start 05/21/17 at 14:00; Stop 05/23/17 at 14:00; Status DC Clopidogrel Bisulfate (PLAVix) 75 mg DAILY PO Last administered on 06/05/17 08 :43; Start 05/17/17 at 09:00; Stop 06/16/17 at 08:59 Diphenhydramine HCl (Benadryl) 100 mg QHS PO Last administered on 06/04/17 20: 03; Start 06/04/17 at 21:00; Stop 06/07/17 at 22:00 Fenofibrate (Tricor) 145 mg DAILY PO Last administered on 06/05/17 08:44; Start 05/17/17 at 09:00; Stop 06/16/17 at 08:59 Home Med (Med Rec Complete!) ASDIRECTED XX ; Start 05/16/17 at 20:15; Stop at 20:15; Status DC Hydroxyzine HCl (Atarax) 25 mg Q6HP PRN PO ANXIETY Last administered on 19:57; Start 05/16/17 at 20:15; Stop 06/15/17 at 20:14 Isosorbide Dinitrate (Isordil) 10 mg QID PO ; Start 05/17/17 at 09:00; Stop at 09:00; Status DC Isosorbide Dinitrate (Isordil) 10 mg QID PO Last administered on 06/05/17 08: 44; Start 05/17/17 at 09:00; Stop 06/16/17 at 08:59 Lidocaine (Lidoderm Patch) 2 patch DAILY TD Last administered on 05/21/17 09: 27; Start 05/17/17 at 09:00; Stop 05/30/17 at 10:29; Status DC Losartan Potassium (Cozaar) 100 mg DAILY PO ; Start 05/17/17 at 09:00; Stop at 09:00; Status DC Losartan Potassium (Cozaar) 100 mg DAILY PO Last administered on 06/05/17 08: 43; Start 05/17/17 at 09:00; Stop 06/16/17 at 08:59 Magnesium Hydroxide (Milk Of Magnesia) 30 ml DAILYPRN PRN PO CONSTIPATION; Start 05/16/17 at 20:15; Stop 06/15/17 at 20:14 Mirtazapine (Remeron) 15 mg QHS PO Last administered on 05/21/17 20:37; Start 05/16/17 at 21:00; Stop 05/22/17 at 11:15; Status DC Nicotine (Nicoderm Cq 21mg) 1 patch DAILY TD Last administered on 06/05/17 08: 43; Start 05/17/17 at 09:00; Stop 06/16/17 at 08:59 Nifedipine (Procardia Xl) 90 mg DAILY PO Last administered on 06/05/17 08:44; Start 05/17/17 at 09:00; Stop 06/16/17 at 08:59 Non-Formulary Medication ( See Comment Field Below ) REMOVE LIDODERM PATCH DAILY@21 XX Last administered on 05/27/17 22:05; Start 05/17/17 at 21:00; Stop 06/16/17 at 20:59 Nystatin (Mycostatin Powder, Nystop) 1 dose BID TOP Last administered on 20:03; Start 05/17/17 at 09:00; Stop 06/16/17 at 08:59 Risperidone (RisperDAL) 0.25 mg QHS PO Last administered on 05/28/17 19:57; Start 05/24/17 at 21:00; Stop 05/29/17 at 13:48; Status DC Risperidone (RisperDAL) 1 mg QHS PO Last administered on 06/04/17 20:03; Start 05/29/17 at 21:00; Stop 06/28/17 at 20:59 Sertraline HCl (Zoloft) 50 mg QHS PO Last administered on 06/04/17 20:03; Start 05/23/17 at 21:00; Stop 06/22/17 at 20:59 Trazodone HCl (Desyrel) 50 mg QHS PO Last administered on 05/22/17 20:25; Start 05/22/17 at 21:00; Stop 05/23/17 at 14:15; Status DC Trazodone HCl (Desyrel) 50 mg QHS PO Last administered on 05/30/17 20:09; Start 05/30/17 at 21:00; Stop 05/31/17 at 12:11; Status DC Trazodone HCl (Desyrel) 50 mg QHSP PRN PO INSOMNIA; Start 05/16/17 at 20:15; Stop 05/17/17 at 03:26; Status DC Trazodone HCl (Desyrel) 100 mg QHS PO Last administered on 05/31/17 20:11; Start 05/31/17 at 21:00; Stop 06/01/17 at 13:04; Status DC Trazodone HCl (Desyrel) 100 mg QHSP PRN PO INSOMNIA Last administered on 21:19; Start 05/23/17 at 21:00; Stop 05/24/17 at 14:20; Status DC Zolpidem Tartrate (Ambien) 10 mg QHSP PRN PO INSOMNIA Last administered on 06/03 20:33; Start 06/01/17 at 21:00; Stop 06/04/17 at 09:00; Status DC Allergies Coded Allergies: Codeine (Verified Allergy, Unknown, 05/16/17) Iodine (Verified Allergy, Unknown, 05/16/17) Morphine (Verified Allergy, Unknown, 05/16/17) Shellfish Allergy (Verified Allergy, Unknown, 05/16/17) Ирина Shultz Jun 05, 2017 12:33
[2017-06-05] MEDS: ACETAMINOPHEN TAB 650MG DOSE (2X325MG) PO PRN (16:51)
[2017-06-05 18:00] VITALS: BP 141/69
[2017-06-05] MEDS: risperiDONE 1 MG TAB PO SCH (20:19)
[2017-06-05] MEDS: SERTRALINE HCL 50 MG TAB PO SCH (20:19)
[2017-06-05] MEDS: diphenhydrAMINE 50 MG CAP PO SCH (20:19)
[2017-06-05] MEDS: **NOTE PATIENT COMMENT** MISC XX SCH (20:21)
[2017-06-06 06:49] VITALS: BP 140/98
[2017-06-06] MEDS: NYSTATIN 100,000 UNITS/GM TOPICAL PWD 15 GM TOP SCH ×2 (09:00→20:22)
[2017-06-06] MEDS: NICOTINE 21MG/24HR 1 EA TRANSDERMAL TD SCH (10:22)
[2017-06-06] MEDS: FENOFIBRATE 145 MG TAB (TRICOR) PO SCH (10:23)
[2017-06-06] MEDS: CLOPIDOGREL 75 MG TAB PO SCH (10:23)
[2017-06-06] MEDS: LOSARTAN 50 MG TAB PO SCH (10:23)
[2017-06-06] MEDS: ISOSORBIDE DIN (ISORDIL) 10 MG TAB PO SCH ×4 (10:23→20:22)
[2017-06-06] MEDS: NIFEdipine 30 MG XL TAB PO SCH (10:24)
--- NOTE | 2017-06-06 15:28 | MHIPNPDOC ---
[facility] Progress Note Progress Note DATE OF SERVICE: 06/06/17 HISTORY: day 22 of admission for suicidal ideation related to pain med argument with brother. VITAL SIGNS: See below. NEW TEST RESULTS: na CURRENT MEDICATIONS: See below. MENTAL STATUS EXAMINATION: Patient is a 72-year old male, who is small in stature, ambulates with walker, clean shaven, good eye contact. Speech: Is spontaneous, over-productive Language skills are good Thought processes including: tangential, linear Thought content: circumstantial, appropriate . Abstract reasoning, and computation: good. Description of associations: good. Description of abnormal or psychotic thoughts: no psychosis observed or reported. Pt has always denied thoughts of suicide, no homicidal thoughts. Judgment: limited Insight: very limited. Orientation: oriented to place, time surroundings and person. Recent and remote memory: mostly intact Attention span and concentration: good. Fund of knowledge: Full. Mood: euthymic. Affect: congruent. DIAGNOSES: 1. psychotic disorder unspecified 2. opiate dependency and abuse 3. alcohol dependency in remission 4. histrionic personality disorder ASSESSMENT:Met with pt as he had lunch in his room. He remains avoidant of crowds as they cause him anxiety. 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 [facility]. He has been working with [facility] on meeting with all the agencies that will be supporting his independence in [facility]. He met with [facility] today for food stamps and insurance assistance. Pt will have MOW and Case mgt through [facility]. We will arrange primary care services through [facility] and hope they don't prescribe a lot of conrolled substances for him. He has done well here without any hydrocodones. Will living in [place] he would lay in bed and smoke all day and not eat. MANAGEMENT PLAN: continue meds, will add trazodone to benadryl at 100 mg as he was awake from 4:30 a.m. on today. continue obs, enc socialization and adls. TIME SPENT: 15 minutes. Vital Signs Vital Signs Date Time Temp Pulse Resp B/P (MAP) Pulse Ox O2 Delivery O2 Flow Rate FiO2 06/06/17 10:24 140/98 06/06/17 06:49 98.6 73 20 06/05/17 06:50 Room Air Current Medications Current Medications Acetaminophen (Tylenol Tab) 650 mg Q6HP PRN PO HEADACHE or DISCOMFORT Last administered on 06/05/17 16:51; Start 05/16/17 at 20:15; Stop 06/15/17 at 20:14 Al Hydrox/Mg Hydrox/Simethicone (Mylanta) 30 ml Q4HP PRN PO HEARTBURN/ INDIGESTION Last administered on 05/24/17 18:02; Start 05/16/17 at 20:15; Stop 06/15/17 at 20:14 Albuterol Sulfate (Proventil, Ventolin Hfa) 2 puff Q4HP PRN INH SHORTNESS OF BREATH; Start 05/16/17 at 23:30; Stop 06/15/17 at 23:29 Albuterol/ Ipratropium (Duoneb (Ipr 0.5mg/Alb 2.5mg)) 3 ml RQ6H NEB Last administered on 05/23/17 07:56; Start 05/21/17 at 14:00; Stop 05/23/17 at 14:00; Status DC Clopidogrel Bisulfate (PLAVix) 75 mg DAILY PO Last administered on 06/06/17 10 :23; Start 05/17/17 at 09:00; Stop 06/16/17 at 08:59 Diphenhydramine HCl (Benadryl) 100 mg QHS PO Last administered on 06/05/17 20: 19; Start 06/04/17 at 21:00; Stop 06/07/17 at 22:00 Fenofibrate (Tricor) 145 mg DAILY PO Last administered on 06/06/17 10:23; Start 05/17/17 at 09:00; Stop 06/16/17 at 08:59 Home Med (Med Rec Complete!) ASDIRECTED XX ; Start 05/16/17 at 20:15; Stop at 20:15; Status DC Hydroxyzine HCl (Atarax) 25 mg Q6HP PRN PO ANXIETY Last administered on 19:57; Start 05/16/17 at 20:15; Stop 06/15/17 at 20:14 Isosorbide Dinitrate (Isordil) 10 mg QID PO ; Start 05/17/17 at 09:00; Stop at 09:00; Status DC Isosorbide Dinitrate (Isordil) 10 mg QID PO Last administered on 06/06/17 10: 23; Start 05/17/17 at 09:00; Stop 06/16/17 at 08:59 Lidocaine (Lidoderm Patch) 2 patch DAILY TD Last administered on 05/21/17 09: 27; Start 05/17/17 at 09:00; Stop 05/30/17 at 10:29; Status DC Losartan Potassium (Cozaar) 100 mg DAILY PO ; Start 05/17/17 at 09:00; Stop at 09:00; Status DC Losartan Potassium (Cozaar) 100 mg DAILY PO Last administered on 06/06/17 10: 23; Start 05/17/17 at 09:00; Stop 06/16/17 at 08:59 Magnesium Hydroxide (Milk Of Magnesia) 30 ml DAILYPRN PRN PO CONSTIPATION; Start 05/16/17 at 20:15; Stop 06/15/17 at 20:14 Mirtazapine (Remeron) 15 mg QHS PO Last administered on 05/21/17 20:37; Start 05/16/17 at 21:00; Stop 05/22/17 at 11:15; Status DC Nicotine (Nicoderm Cq 21mg) 1 patch DAILY TD Last administered on 06/06/17 10: 22; Start 05/17/17 at 09:00; Stop 06/16/17 at 08:59 Nifedipine (Procardia Xl) 90 mg DAILY PO Last administered on 06/06/17 10:24; Start 05/17/17 at 09:00; Stop 06/16/17 at 08:59 Non-Formulary Medication ( See Comment Field Below ) REMOVE LIDODERM PATCH DAILY@21 XX Last administered on 06/05/17 20:21; Start 05/17/17 at 21:00; Stop 06/16/17 at 20:59 Nystatin (Mycostatin Powder, Nystop) 1 dose BID TOP Last administered on 20:21; Start 05/17/17 at 09:00; Stop 06/16/17 at 08:59 Risperidone (RisperDAL) 0.25 mg QHS PO Last administered on 05/28/17 19:57; Start 05/24/17 at 21:00; Stop 05/29/17 at 13:48; Status DC Risperidone (RisperDAL) 1 mg QHS PO Last administered on 06/05/17 20:19; Start 05/29/17 at 21:00; Stop 06/28/17 at 20:59 Sertraline HCl (Zoloft) 50 mg QHS PO Last administered on 06/05/17 20:19; Start 05/23/17 at 21:00; Stop 06/22/17 at 20:59 Trazodone HCl (Desyrel) 50 mg QHS PO Last administered on 05/22/17 20:25; Start 05/22/17 at 21:00; Stop 05/23/17 at 14:15; Status DC Trazodone HCl (Desyrel) 50 mg QHS PO Last administered on 05/30/17 20:09; Start 05/30/17 at 21:00; Stop 05/31/17 at 12:11; Status DC Trazodone HCl (Desyrel) 50 mg QHSP PRN PO INSOMNIA; Start 05/16/17 at 20:15; Stop 05/17/17 at 03:26; Status DC Trazodone HCl (Desyrel) 100 mg QHS PO Last administered on 05/31/17 20:11; Start 05/31/17 at 21:00; Stop 06/01/17 at 13:04; Status DC Trazodone HCl (Desyrel) 100 mg QHSP PRN PO INSOMNIA Last administered on 21:19; Start 05/23/17 at 21:00; Stop 05/24/17 at 14:20; Status DC Zolpidem Tartrate (Ambien) 10 mg QHSP PRN PO INSOMNIA Last administered on 06/03 20:33; Start 06/01/17 at 21:00; Stop 06/04/17 at 09:00; Status DC Allergies Coded Allergies: Codeine (Verified Allergy, Unknown, 05/16/17) Iodine (Verified Allergy, Unknown, 05/16/17) Morphine (Verified Allergy, Unknown, 05/16/17) Shellfish Allergy (Verified Allergy, Unknown, 05/16/17) Ирина Shultz Jun 06, 2017 15:28
[2017-06-06] MEDS: ACETAMINOPHEN TAB 650MG DOSE (2X325MG) PO PRN (17:18)
[2017-06-06 18:00] VITALS: BP 143/76
[2017-06-06] MEDS: SERTRALINE HCL 50 MG TAB PO SCH (20:21)
[2017-06-06] MEDS: risperiDONE 1 MG TAB PO SCH (20:22)
[2017-06-06] MEDS: diphenhydrAMINE 50 MG CAP PO SCH (20:22)
[2017-06-06] MEDS: **NOTE PATIENT COMMENT** MISC XX SCH (20:22)
[2017-06-06] MEDS ORDERED: traZODone 100 MG TAB PO SCH (21:00)
[2017-06-07 06:50] VITALS: BP 141/76
[2017-06-07] MEDS: NICOTINE 21MG/24HR 1 EA TRANSDERMAL TD SCH (08:55)
[2017-06-07] MEDS: NIFEdipine 30 MG XL TAB PO SCH (08:55)
[2017-06-07] MEDS: FENOFIBRATE 145 MG TAB (TRICOR) PO SCH (08:55)
[2017-06-07] MEDS: CLOPIDOGREL 75 MG TAB PO SCH (08:56)
[2017-06-07] MEDS: LOSARTAN 50 MG TAB PO SCH (08:56)
[2017-06-07] MEDS: ISOSORBIDE DIN (ISORDIL) 10 MG TAB PO SCH ×4 (08:56→20:19)
[2017-06-07] MEDS: ACETAMINOPHEN TAB 650MG DOSE (2X325MG) PO PRN ×2 (08:57→20:20)
[2017-06-07] MEDS: NYSTATIN 100,000 UNITS/GM TOPICAL PWD 15 GM TOP SCH ×2 (08:57→20:20)
--- NOTE | 2017-06-07 12:01 | MHIPNPDOC ---
[facility] Progress Note Progress Note DATE OF SERVICE: 06/07/17 HISTORY: day 23 of admission for suicidal statement regarding pain meds. VITAL SIGNS: See below. NEW TEST RESULTS: na CURRENT MEDICATIONS: See below. MENTAL STATUS EXAMINATION: Patient is a 72-year old male, who is small, frail and ambulates with walker, good eye contact, wearing street clothes. Speech: Is clear Language skills are good. Thought processes including: tangential but goal directed Thought content: reminiscences a lot, appropriate. Abstract reasoning, and computation: good. Description of associations: good. Description of abnormal or psychotic thoughts: no psychosis, does not appear delusional in his thinking, denies SI. Judgment: limited Insight: fair. Orientation: good in all spheres Recent and remote memory: intact Attention span and concentration: good Fund of knowledge:full Mood: euthymic, telling jokes. Affect: congruent. DIAGNOSES: 1. psychotic disorder unspecified 2. opiate dependency and abuse 3. 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 Tobacco dependence ASSESSMENT:pt continues to report difficulty with sleep maintenance. He is awakening early and having difficulty going back to sleep. He wants Ambien every night but filing writer has expressed concerns associated with the medication such as memory loss and early onset dementia. Also he has abuse controlled substances consistently in the past and his access to these meds should be restricted. A combination of Benadryl and trazodone has not worked. He would take 75mg of Excederine PM when he lived in [place] and that would help him sleep but he was also taking 10-15 hydrocodone a day. Pt is eating well. His discharge plan is nearly finalized. He can meet the circulation manager tomorrow at 1 p.m. to get keys to his apartment and sign the lease. [place]erman has attempted to contact his brother Bayron to bring pts cane up so he has some assistive device when he leaves. So far Bayron cannot be reached. No answer, no voice mail. Once his Medicaid is [place], in 7-10 days, he can get his script filled for a walker to use at home. Pt appears to be asking staff to do things for him that he can and should be doing for himself. MANAGEMENT PLAN: Will increase trazodone to 200 mg at hs. May take with or without Benadryl. Enc pt out of room and active during daytime so sleep comes easier. Encourage independence with ADL's. He will have home health aid 2 times a week. He will have CM through [facility]. His PCP will see him 06/20, Dr. Ortega. Plan is for pt to be discharged tomorrow at 11:30 or 12. His sister is planning to pick him up. [place] with brother about getting his cane here before discharge. Sister may be able to stop by and get it on the way. If not he will leave without it and it will be in his apartment when he arrives. TIME SPENT: 15 minutes. Vital Signs Vital Signs Date Time Temp Pulse Resp B/P (MAP) Pulse Ox O2 Delivery O2 Flow Rate FiO2 06/07/17 08:56 141/76 06/07/17 06:50 98.4 77 18 06/05/17 06:50 Room Air Current Medications Current Medications Acetaminophen (Tylenol Tab) 650 mg Q6HP PRN PO HEADACHE or DISCOMFORT Last administered on 06/07/17 08:57; Start 05/16/17 at 20:15; Stop 06/15/17 at 20:14 Al Hydrox/Mg Hydrox/Simethicone (Mylanta) 30 ml Q4HP PRN PO HEARTBURN/ INDIGESTION Last administered on 05/24/17 18:02; Start 05/16/17 at 20:15; Stop 06/15/17 at 20:14 Albuterol Sulfate (Proventil, Ventolin Hfa) 2 puff Q4HP PRN INH SHORTNESS OF BREATH; Start 05/16/17 at 23:30; Stop 06/15/17 at 23:29 Albuterol/ Ipratropium (Duoneb (Ipr 0.5mg/Alb 2.5mg)) 3 ml RQ6H NEB Last administered on 05/23/17 07:56; Start 05/21/17 at 14:00; Stop 05/23/17 at 14:00; Status DC Clopidogrel Bisulfate (PLAVix) 75 mg DAILY PO Last administered on 06/07/17 08 :56; Start 05/17/17 at 09:00; Stop 06/16/17 at 08:59 Diphenhydramine HCl (Benadryl) 100 mg QHS PO Last administered on 06/06/17 20: 22; Start 06/04/17 at 21:00; Stop 06/07/17 at 22:00 Fenofibrate (Tricor) 145 mg DAILY PO Last administered on 06/07/17 08:55; Start 05/17/17 at 09:00; Stop 06/16/17 at 08:59 Home Med (Med Rec Complete!) ASDIRECTED XX ; Start 05/16/17 at 20:15; Stop at 20:15; Status DC Hydroxyzine HCl (Atarax) 25 mg Q6HP PRN PO ANXIETY Last administered on 19:57; Start 05/16/17 at 20:15; Stop 06/15/17 at 20:14 Isosorbide Dinitrate (Isordil) 10 mg QID PO ; Start 05/17/17 at 09:00; Stop at 09:00; Status DC Isosorbide Dinitrate (Isordil) 10 mg QID PO Last administered on 06/07/17 08: 56; Start 05/17/17 at 09:00; Stop 06/16/17 at 08:59 Lidocaine (Lidoderm Patch) 2 patch DAILY TD Last administered on 05/21/17 09: 27; Start 05/17/17 at 09:00; Stop 05/30/17 at 10:29; Status DC Losartan Potassium (Cozaar) 100 mg DAILY PO ; Start 05/17/17 at 09:00; Stop at 09:00; Status DC Losartan Potassium (Cozaar) 100 mg DAILY PO Last administered on 06/07/17 08: 56; Start 05/17/17 at 09:00; Stop 06/16/17 at 08:59 Magnesium Hydroxide (Milk Of Magnesia) 30 ml DAILYPRN PRN PO CONSTIPATION; Start 05/16/17 at 20:15; Stop 06/15/17 at 20:14 Mirtazapine (Remeron) 15 mg QHS PO Last administered on 05/21/17 20:37; Start 05/16/17 at 21:00; Stop 05/22/17 at 11:15; Status DC Nicotine (Nicoderm Cq 21mg) 1 patch DAILY TD Last administered on 06/07/17 08: 55; Start 05/17/17 at 09:00; Stop 06/16/17 at 08:59 Nifedipine (Procardia Xl) 90 mg DAILY PO Last administered on 06/07/17 08:55; Start 05/17/17 at 09:00; Stop 06/16/17 at 08:59 Non-Formulary Medication ( See Comment Field Below ) REMOVE LIDODERM PATCH DAILY@21 XX Last administered on 06/06/17 20:22; Start 05/17/17 at 21:00; Stop 06/16/17 at 20:59 Nystatin (Mycostatin Powder, Nystop) 1 dose BID TOP Last administered on 20:22; Start 05/17/17 at 09:00; Stop 06/16/17 at 08:59 Risperidone (RisperDAL) 0.25 mg QHS PO Last administered on 05/28/17 19:57; Start 05/24/17 at 21:00; Stop 05/29/17 at 13:48; Status DC Risperidone (RisperDAL) 1 mg QHS PO Last administered on 06/06/17 20:22; Start 05/29/17 at 21:00; Stop 06/28/17 at 20:59 Sertraline HCl (Zoloft) 50 mg QHS PO Last administered on 06/06/17 20:21; Start 05/23/17 at 21:00; Stop 06/22/17 at 20:59 Trazodone HCl (Desyrel) 50 mg QHS PO Last administered on 05/22/17 20:25; Start 05/22/17 at 21:00; Stop 05/23/17 at 14:15; Status DC Trazodone HCl (Desyrel) 50 mg QHS PO Last administered on 05/30/17 20:09; Start 05/30/17 at 21:00; Stop 05/31/17 at 12:11; Status DC Trazodone HCl (Desyrel) 50 mg QHSP PRN PO INSOMNIA; Start 05/16/17 at 20:15; Stop 05/17/17 at 03:26; Status DC Trazodone HCl (Desyrel) 100 mg QHS PO Last administered on 05/31/17 20:11; Start 05/31/17 at 21:00; Stop 06/01/17 at 13:04; Status DC Trazodone HCl (Desyrel) 100 mg QHS PO Last administered on 06/06/17 20:22; Start 06/06/17 at 21:00; Stop 07/06/17 at 20:59 Trazodone HCl (Desyrel) 100 mg QHSP PRN PO INSOMNIA Last administered on 21:19; Start 05/23/17 at 21:00; Stop 05/24/17 at 14:20; Status DC Zolpidem Tartrate (Ambien) 10 mg QHSP PRN PO INSOMNIA Last administered on 06/03 20:33; Start 06/01/17 at 21:00; Stop 06/04/17 at 09:00; Status DC Allergies Coded Allergies: Codeine (Verified Allergy, Unknown, 05/16/17) Iodine (Verified Allergy, Unknown, 05/16/17) Morphine (Verified Allergy, Unknown, 05/16/17) Shellfish Allergy (Verified Allergy, Unknown, 05/16/17) Ирина Shultz Jun 07, 2017 12:01
[2017-06-07 13:08] VITALS: BP 127/78
[2017-06-07 18:00] VITALS: BP 150/74
[2017-06-07] MEDS: risperiDONE 1 MG TAB PO SCH (20:19)
[2017-06-07] MEDS: diphenhydrAMINE 50 MG CAP PO SCH (20:19)
[2017-06-07] MEDS: SERTRALINE HCL 50 MG TAB PO SCH (20:19)
[2017-06-07] MEDS ORDERED: traZODone 100 MG TAB PO SCH (21:00)
[2017-06-08 06:24] VITALS: BP 154/79
[2017-06-08] MEDS: LOSARTAN 50 MG TAB PO SCH (08:18)
[2017-06-08] MEDS: NICOTINE 21MG/24HR 1 EA TRANSDERMAL TD SCH (08:18)
[2017-06-08] MEDS: CLOPIDOGREL 75 MG TAB PO SCH (08:18)
[2017-06-08 08:19] VITALS: BP 154/79
[2017-06-08] MEDS: FENOFIBRATE 145 MG TAB (TRICOR) PO SCH (08:19)
[2017-06-08] MEDS: NIFEdipine 30 MG XL TAB PO SCH (08:19)
[2017-06-08] MEDS: ISOSORBIDE DIN (ISORDIL) 10 MG TAB PO SCH (08:19)
[2017-06-08] MEDS: ACETAMINOPHEN TAB 650MG DOSE (2X325MG) PO PRN (08:21)
[2017-06-08] MEDS: NYSTATIN 100,000 UNITS/GM TOPICAL PWD 15 GM TOP SCH (08:22)
[2017-06-08] MEDS ORDERED: AMBI10TA PO (10:39)
[2017-06-08] MEDS ORDERED: BENA25CA4 PO (10:39)
[2017-06-08] MEDS ORDERED: RISP1TAB42 PO (10:39)
[2017-06-08] MEDS ORDERED: SERT50TA PO (10:39)
[2017-06-08] MEDS ORDERED: TRAZ10TA PO (10:39)
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
== END 2017-06-08 12:25 | disposition home or self-care (01) | DRG 885 ==
LOC: M ED 15:31 → M ED INP 20:12 → M PSY 21:25
PROVIDERS: ADMIT Psychiatry & Neurology Psychiatry; ATTEND Psychiatry & Neurology Psychiatry
DX: F29 Unspecified psychosis not due to a substance or known physiological condition (principal); F11.20 Opioid dependence, uncomplicated; F10.21 Alcohol dependence, in remission; F60.4 Histrionic personality disorder; Z79.899 Other long term (current) drug therapy; Z88.5 Allergy status to narcotic agent; Z91.013 Allergy to seafood; Z88.8 Allergy status to other drugs, medicaments and biological substances; M54.5 Low back pain; I10 Essential (primary) hypertension; J44.9 Chronic obstructive pulmonary disease, unspecified; I25.10 Atherosclerotic heart disease of native coronary artery without angina pectoris; N40.0 Benign prostatic hyperplasia without lower urinary tract symptoms; K44.9 Diaphragmatic hernia without obstruction or gangrene; M54.6 Pain in thoracic spine; G89.29 Other chronic pain; F17.200 Nicotine dependence, unspecified, uncomplicated; E87.6 Hypokalemia; E78.5 Hyperlipidemia, unspecified; R26.89 Other abnormalities of gait and mobility; D64.9 Anemia, unspecified; D72.829 Elevated white blood cell count, unspecified